=== PATIENT | male | born 1965 | race Two or more races ===

== ENCOUNTER 2025-05-25 07:27 | Inpatient (IN) | payer MEDICARE, MEDICAID, SELFPAY ==
[2025-05-25] VITALS (9 sets, daily range): BP systolic 103–168; BP diastolic 37–78; PULSE 59–95; RESP 11–20; TEMP 37.2–38.5; O2SAT 96–100; BMI 25.1
--- NOTE | ~2025-05-25 | CT_ITS ---
EXAMINATION: CT ABDOMEN PELVIS WITH IV CONTRAST HISTORY: fever, abdominal pain, altered, WBC count 16 COMPARISON: There are no prior studies for available comparison. TECHNIQUE: CT scan of the abdomen and pelvis was performed following administration of 85 mL Omnipaque 350 using standard departmental protocol. Coronal and sagittal reformatted images were generated and reviewed. Oral contrast material was not administered at the request of the referring physician. This CT exam was performed with one or more of the following dose reduction techniques: automated exposure control, adjustment of the mA and/or kV according to patient size, use of iterative reconstruction technique. DLP: 836 mGy-cm FINDINGS: LOWER CHEST: There is minimal subsegmental atelectasis at both lung bases. There is no pleural effusion. CARDIOVASCULATURE: The heart is normal in size. There is no pericardial effusion. LIVER: The liver is normal in size and contour. No liver mass is identified. The hepatic and portal veins are patent. GALLBLADDER / BILE DUCTS: The gallbladder is unremarkable. There is no intra or extrahepatic biliary ductal dilatation. SPLEEN: The spleen is normal in size. No focal splenic lesion is identified. PANCREAS: The pancreas is unremarkable in appearance. ADRENAL GLANDS: Within normal limits. KIDNEYS/RETROPERITONEUM: No renal calculi are identified. There is no hydronephrosis. There are multiple bilateral renal parapelvic cysts. LYMPH NODES: No abdominal or pelvic lymphadenopathy. VASCULATURE: The abdominal aorta is normal in caliber. MESENTERY/PERITONEUM: No free fluid. No masses. There is no free intraperitoneal gas. STOMACH: The stomach is unremarkable. SMALL BOWEL: The small bowel is normal in caliber. COLON: There is diverticulosis of the sigmoid colon, without evidence of diverticulitis. APPENDIX: Normal. URINARY BLADDER/PELVIC ORGANS: The urinary bladder is collapsed, limiting evaluation. The prostate is mildly enlarged. BONES / SOFT TISSUES: There is a chronic appearing severe compression fracture of L3. CT/CT abdomen pelvis w IV con IMPRESSION: Sigmoid diverticulosis without evidence of diverticulitis. No acute inflammatory process is identified. Electronically signed by: Jose Gale MD 05/25/2025 10:04 AM EDT
--- NOTE | ~2025-05-25 | XR_ITS ---
EXAMINATION: XR CHEST 1 VIEW HISTORY: fever COMPARISON: There are no prior studies available for comparison. FINDINGS: A single AP portable view of the chest performed at 8:01 AM is submitted. The lungs are expanded and clear. There is no pleural effusion, pneumothorax, or pulmonary vascular congestion. The heart is normal in size. The bones are intact. XR/XR chest 1V IMPRESSION: Clear lungs. Electronically signed by: Jose Gale MD 05/25/2025 08:28 AM EDT
--- NOTE | ~2025-05-25 | XR_ITS ---
CLINICAL HISTORY: right arm pain Right humerus, 2 views COMPARISON: None provided FINDINGS: No acute fracture. No dislocation. Small bony protuberance along the lateral margin of the distal right humerus, which could be due to osteophyte or osteochondroma. Unremarkable soft tissues. IMPRESSION: No acute findings. This document has been electronically signed by: Benito Melendrez MD on 05/28/2025 19:18:41
--- NOTE | ~2025-05-25 | CT_ITS ---
EXAMINATION: CT HEAD WITHOUT CONTRAST CLINICAL INFORMATION: AMS COMPARISON: None available. TECHNIQUE: Contiguous axial imaging was performed from the skull base to vertex without intravenous administration of contrast. This CT examination was performed using dose optimization techniques as appropriate, variously including the following: *Automated exposure control *Adjustment of mA and/or kV according to patient size (this includes techniques or standardized protocols for targeted exams where dose is matched to indication/reason for exam; i.e. extremities or head) *Use of iterative reconstruction technique DLP: 778 mGy-cm FINDINGS: No acute fracture in the bony calvarium or the skull base. There is residual IV contrast within the intracranial vessels from recent imaging exam. No gross acute intracranial hemorrhage, mass effect, midline shift, hydrocephalus or herniation. Avila-white matter differentiation is normal. Posterior cranial fossa contents demonstrated no gross hemorrhage or mass effect. Normal position of the cerebellar tonsils. Sellar/suprasellar region is normal. Prominence of the extra-axial CSF spaces cerebral sulci and ventricles. Small encephalomalacia, right frontotemporal likely sequela of prior vascular insult. Calcified plaques in the cavernous supracavernous segments both ICAs. No air-fluid levels in the paranasal sinuses. Tympanic cavities and mastoid cells are aerated. CT/CT head/brain wo IV con IMPRESSION: No gross acute intracranial hemorrhage. 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 Global cerebral atrophy. Electronically signed by: Sony Morrison MD 05/25/2025 11:59 AM EDT
--- NOTE | ~2025-05-25 | XR_ITS ---
CLINICAL HISTORY: right arm shoulder pain Right shoulder, 3 views COMPARISON: None provided FINDINGS: No acute fracture. No dislocation. Mild degenerative changes in the right acromioclavicular joint. Unremarkable soft tissues. IMPRESSION: No acute findings. This document has been electronically signed by: Benito Melendrez MD on 05/28/2025 19:19:47
--- NOTE | 2025-05-25 07:54 | ECG_ITS ---
Test Reason : AMS Blood Pressure : */* mmHG Vent. Rate : 78 BPM Atrial Rate : 78 BPM P-R Int : 152 ms QRS Dur : 92 ms QT Int : 358 ms P-R-T Axes : 65 15 45 degrees QTcB Int : 408 ms Normal sinus rhythm Normal ECG No previous ECGs available Referred By: Generic ED Physician Electronically Signed By: NANNETTE ALAN
--- NOTE | 2025-05-25 08:02 | ED.MALEGU ---
HPI - Male Genitourinary General Chief complaint: Urogenital-Male Stated complaint: AMS,WEAKNESS,HX DEMENTIA PER EMS Time Seen by Provider: 05/25/25 07:58 Source: patient, family, EMS, old records reviewed and safety companion Mode of arrival: EMS Limitations: altered mental status and other (daughter does not know his medical history is unclear. ) History of Present Illness ED Provider: MARY LOU HPI Narrative: 59 yo male with PMH of parkinsons, BPH, HTN, HLD, on lasix but unclear why, dementia who just came from [place] 3 weeks ago to live with his daughter. She notes she is not clear of his medical history as it was confusing and he cannot provide information. He has had shaking, tremors, increased confusion, poor PO intake, states it hurts to urinate and he cannot urinate much. He has also been constipated. He really cannot provide much other history. MD Complaint: other Onset (ago): day(s) (1) Duration: constant Severity: moderate Relieving factors: urination Exacerbating factors: none Context: other Associated symptoms: Reports urinary retention, dysuria, fever and other Related Data Allergies Allergy/AdvReac Type Severity Reaction Status Date / Time No Known Allergies Allergy Verified 05/25/25 07:52 [facility] Social History Social History Smoked in Last 30 Days: No Use of substances other than those prescribed or required for medical reasons: No Advance Directives: No Advance Directives Information Provided: Yes Physical Exam Vital Signs: Vital Signs: Last Vital Signs Temp 98.9 F 05/25/25 13:23 Pulse 59 05/25/25 13:23 Resp 14 05/25/25 13:23 BP 105/37 L 05/25/25 13:23 Pulse Ox 97 05/25/25 13:23 O2 Del Method Room Air 05/25/25 13:23 BMI result Body Mass Index 25.1 Appearance: Alert. confused not answering questions. Mild acute distress. Eyes: Pupils equal, round and reactive to light. ENT: Pharynx dry MM Neck: Normal inspection. Neck supple. CVS: Normal heart rate and rhythm. Pulses normal. Respiratory: No respiratory distress. Breath sounds normal. Abdomen: Soft and mild grimace lower abdomen Skin: Skin warm and dry. Normal skin color. Extremities: No lower extremity edema. Neuro: confused, non verbal No motor deficit. No sensory deficit. Course Course Course Narrative: no source at this time. will discuss possible LP plts are above 100 and he is not on blood thinners. I have no other source of infection. He is diffusely rigid on exam from his parkinsons so I cannot assess meningeal signs Reevaluation(s) Reevaluation #1: Rebeka Workman, DO 05/25/25 1050 patient's daughter is aware I do not have a source of infection. I discussed LP but she doesn't know exactly his meds or why he is on verapamil/lasix. I asked if there were more meds at home and she states yes. Some bottles are not labeled. at this time will dose with vanco, steroids, acyclovir and treat as meningitis until she can confirm his meds Reevaluation #2: signed out to Dr. Thakkar - daughter is going home to confirm medications as we are not sure if he is on blood thinners and she now reports she isn't sure of his history and has more meds and papers at home I am giving IV versed to look for brain mass as cause of symptoms. Rebeka Workman, DO 05/25/25 1109 watery stools x 2, stool studies sent off. Reevaluation #3: Bijan: The patient was signed out to me at change of shift. The patient is a 59-year-old male with a history of Parkinson's disease who presents with a about 36 hours of illness characterized primarily by altered mental status. On arrival here he was found to have a fever. He has a white count of 16,000. His CRP is elevated at 12. Urinalysis, CT of the abdomen and pelvis, chest x-ray, and chest CT do not show any explanation for the patient's fever. His head CT was unremarkable. His medications were reviewed. He is not on anticoagulation. The patient had previously received antibiotics for possible meningitis. Also dexamethasone. I explained to the patient's daughter the rationale for a spinal tap and she consented and signed consent. Spinal tap was mildly difficult but fluid was clear. Immediately after the procedure was completed I was called by the lab to say that a stool sample that has been sent earlier was positive for norovirus. Given the patient has metabolic encephalopathy he will be admitted to the hospitalist service. Time: 13:44 Medications Administered Discontinued Medications Generic Name Dose Route Start Last Admin Trade Name Freq PRN Reason Stop Dose Admin Ceftriaxone Sodium 2 gm 05/25/25 08:00 05/25/25 08:24 Ceftriaxone Sodium 2 Gm Vial IVPUSH 05/25/25 08:01 2 gm ONCE ONE Administration Dexamethasone Sodium Phosphate 10 mg 05/25/25 10:51 05/25/25 11:05 Dexamethasone Sod Phosphate 10 Mg/Ml Vial IVPUSH 05/25/25 10:52 10 mg ONCE ONE Administration Lactated Ringer's 1,000 mls @ 999 mls/hr 05/25/25 08:00 05/25/25 10:20 Lr IV 05/25/25 09:00 Infused .Q1H1M ONE Infusion Acetaminophen 1,000 mg in 100 mls @ 400 mls/hr 05/25/25 08:00 05/25/25 08:31 Ofirmev IV 05/25/25 08:14 Infused ONCE ONE Infusion Vancomycin HCl 2,000 mg in 500 mls @ 250 mls/hr 05/25/25 10:51 05/25/25 13:23 Vancomycin/Ns IV 05/25/25 12:50 Infused ONCE ONE Infusion Acyclovir Sodium 732 mg/ 264.64 mls @ 264.64 mls/hr 05/25/25 10:51 05/25/25 13:29 Sodium Chloride IV 05/25/25 11:50 264.64 mls/hr ONCE ONE Administration Iohexol 100 ml 05/25/25 09:48 05/25/25 09:48 Iohexol 350 Mg/Ml 100 Ml Infus..Btl IV 05/25/25 09:49 85 ml ONCE ONE Administration Lidocaine HCl 5 ml 05/25/25 10:36 05/25/25 13:29 Lidocaine Hcl 1 % Mpf 5 Ml Vial SUBCUT 05/25/25 10:37 5 ml ONCE ONE Administration Midazolam HCl 2 mg 05/25/25 10:49 05/25/25 11:05 Midazolam Hcl 2 Mg/2 Ml Vial IVPUSH 05/25/25 10:50 2 mg ONCE ONE Administration Medical Decision Making Medical Decision Making MDM Narrative: 59 yo male with PMH of parkinsons, BPH, HTN, HLD, on lasix but unclear why, dementia who comes in febrile, shaky, confused more so from baseline, he cannot provide much history he isn't talking. At this time will obtain labs, UA, CXR, viral panel and given c/o constipation I am going to obtain CT scan of abdomen. He will get IV tylenol, IVF and empiric antibiotics. He has a wide differential including viral, UTI, diverticulitis, pyelo, pneumonia, mass Differential Diagnosis Differential Diagnoses: The differential diagnosis associated with the presentation includes viral, UTI, diverticulitis, pyelo, pneumonia, mass Admission/Observation Consideration of admission/observation: Escalation of care including admission/observation considered given encephalopathy from infection will admit Consult Healthcare Provider Management of the patient was discussed with: Hospitalist Lab Data MDM Lab Attestation statement: I reviewed the patient's lab results. 05/25/25 08:22 05/25/25 08:22 Labs: Lab Results 05/25/25 05/25/25 05/25/25 Range/Units 08:22 08:49 10:24 WBC 16.0 H (4.8-10.8) X10*3/uL RBC 4.46 L (4.60-5.80) X10*6/uL Hgb 13.8 L (14.0-18.0) g/dl Hct 42.2 (42.0-52.0) % MCV 94.6 (80.0-98.0) fL MCH 30.9 (27.0-33.0) pg MCHC 32.7 (31.0-36.0) g/dl RDW 13.2 (11.0-16.0) % Plt Count 107 L (160-400) X10*3/uL MPV 12.0 (9.4-12.4) fL Immature Gran % (Auto) 0.6 H (0.0-0.4) % Neut % (Auto) 80.7 H (45-73) % Lymph % (Auto) 7.9 L (20-40) % [place] % (Auto) 10.2 (2-11) % Eos % (Auto) 0.3 (0-4) % Baso % (Auto) 0.3 (0-2) % Lymph # (Auto) 1.3 (1.2-4.9) X10*3/uL [place] # (Auto) 1.6 H (0.1-1.2) X10*3/uL Eos # (Auto) 0.0 (0.0-0.4) X10*3/uL Baso # (Auto) 0.0 (0.0-0.2) X10*3/uL Abs Immat Gran (auto) 0.09 H (0.00-0.03) X10*3/uL Absolute Neuts (auto) 12.9 H (2.0-8.3) x10*3/uL Absolute Nucleated RBC 0.000 (0.0-0.012) X10*3/uL Nucleated RBC % (auto) 0.0 (0.0-0.2) /100WBC Smear Tech's Comments VERIFIED Sodium 141 (135-145) mmol/L Potassium 3.4 (3.3-5.1) mmol/L Chloride 106 (96-108) mmol/L Carbon Dioxide 27 (22-29) mmol/L Anion Gap 11 L (12-20) BUN 15 (9-16) mg/dL Creatinine 0.97 (0.5-1.4) mg/dL Estim Creat Clear Calc 80.9 Estimated GFR > 60 Random Glucose 97 (60-115) mg/dL Lactic Acid 1.1 (0.5-2.0) mmol/L Calcium 9.6 (8.4-10.2) mg/dL Magnesium 2.0 (1.6-2.6) mg/dL Total Bilirubin 0.6 (0.0-1.0) mg/dL Direct Bilirubin 0.2 (0.0-0.5) mg/dL AST 25 (5-37) U/L ALT 29 (0-40) U/L Alkaline Phosphatase 70 (39-117) U/L Troponin I High Sens < 2.7 (<3.5-35.0) ng/L C-Reactive Protein 15.29 H (< or = 0.50) mg/dL Total Protein 8.2 H (6.5-8.0) g/dL Albumin 4.7 (3.5-5.0) g/dL Lipase 29 (8-78) U/L Urine Color Yellow Urine Appearance Clear Urine pH 5.5 (5.0-9.0) Ur Specific [place] >= 1.030 H (1.005-1.025) Urine Protein Negative (Neg-Trace) mg/dL Urine Glucose (UA) Negative (Negative) mg/dL Urine Ketones Trace (Negative) mg/dL Urine Blood Trace H (Negative) Urine Nitrite Negative (Negative) Ur Leukocyte Esterase Negative (Negative) Urine RBC 0-2 (0-2) /HPF Urine WBC 0-5 (0-5) /HPF Ur Squamous Epith Cells 3-5 (0-2) /HPF Urine Bacteria None Seen (None Seen) Hyaline Casts 0-2 (0-2) /LPF Stl C. cayetanensis PCR (Not Detect.) Stool Rotavirus A PCR (Not Detect.) Stl Adenov F 40/41 PCR (Not Detect.) Stool Astrovirus (PCR) (Not Detect.) Stool Campylobacter PCR (Not Detect.) Stool Cryptosporidium PCR (Not Detect.) Stl Sh Tox Pr E STEC PCR (Not Detect.) Stool E coli O157 PCR (Not Detect.) Stl Enterotoxigenic E PCR (Not Detect.) Stool EPEC (PCR) (Not Detect.) Stool EAEC (PCR) (Not Detect.) Stl E. histolytica PCR (Not Detect.) Stool Giardia Lamblia PCR (Not Detect.) Stl P. shigelloides PCR (Not Detect.) Stool Salmonella PCR (Not Detect.) Stool Sapovirus (PCR) (Not Detect.) Stl Shigella/EIEC PCR (Not Detect.) St Y.enterocolitica PCR (Not Detect.) Stool Vibrio (PCR) (Not Detect.) Stl Vibrio cholerae PCR (Not Detect.) Stl Norovirus GI/GII PCR (Not Detect.) Respiratory Panel Shepard See Note Adenovirus (Rapid PCR) Not Detected (Not Detect.) B.pert (TEM-PCR) Not Detected (Not Detect.) B.parapertussis DNA PCR Not Detected (Not Detect.) C. pneumoniae DNA (PCR) Not Detected (Not Detect.) C. difficile Tox B Gene (Negative) Coronavirus OC43 (PCR) Not Detected (Not Detect.) Coronavirus HKU1 (PCR) Not Detected (Not Detect.) Coronavirus 229E (PCR) Not Detected (Not Detect.) Coronavirus NL63 (PCR) Not Detected (Not Detect.) Human Metapneumovir PCR Not Detected (Not Detect.) Influenza A (RT-PCR) Not Detected (Not Detect.) Influenza A (H1) PCR Not Detected (Not Detect.) Influ A (H1/09) PCR Not Detected (Not Detect.) Influenza A (H3) PCR Not Detected (Not Detect.) Influenza Type A (PCR) NEGATIVE (Negative) Influenza B (RT-PCR) Not Detected (Not Detect.) Influenza Type B (PCR) NEGATIVE (Negative) M. pneumoniae (PCR) Not Detected (Not Detect.) Parainfluenza 1 (PCR) Not Detected (Not Detect.) Parainfluenza 2 (PCR) Not Detected (Not Detect.) Parainfluenza 3 (PCR) Not Detected (Not Detect.) Parainfluenza 4 (PCR) Not Detected (Not Detect.) RSV (PCR) Not Detected (Not Detect.) RSV RNA Qual (PCR) NEGATIVE (Negative) Entero/Rhino (PCR) Not Detected (Not Detect.) SARS-CoV-2 RNA (RT-PCR) NEGATIVE Not Detected (Negative) 05/25/25 Range/Units 11:16 WBC (4.8-10.8) X10*3/uL RBC (4.60-5.80) X10*6/uL Hgb (14.0-18.0) g/dl Hct (42.0-52.0) % MCV (80.0-98.0) fL MCH (27.0-33.0) pg MCHC (31.0-36.0) g/dl RDW (11.0-16.0) % Plt Count (160-400) X10*3/uL MPV (9.4-12.4) fL Immature Gran % (Auto) (0.0-0.4) % Neut % (Auto) (45-73) % Lymph % (Auto) (20-40) % [place] % (Auto) (2-11) % Eos % (Auto) (0-4) % Baso % (Auto) (0-2) % Lymph # (Auto) (1.2-4.9) X10*3/uL [place] # (Auto) (0.1-1.2) X10*3/uL Eos # (Auto) (0.0-0.4) X10*3/uL Baso # (Auto) (0.0-0.2) X10*3/uL Abs Immat Gran (auto) (0.00-0.03) X10*3/uL Absolute Neuts (auto) (2.0-8.3) x10*3/uL Absolute Nucleated RBC (0.0-0.012) X10*3/uL Nucleated RBC % (auto) (0.0-0.2) /100WBC Smear Tech's Comments Sodium (135-145) mmol/L Potassium (3.3-5.1) mmol/L Chloride (96-108) mmol/L Carbon Dioxide (22-29) mmol/L Anion Gap (12-20) BUN (9-16) mg/dL Creatinine (0.5-1.4) mg/dL Estim Creat Clear Calc Estimated GFR Random Glucose (60-115) mg/dL Lactic Acid (0.5-2.0) mmol/L Calcium (8.4-10.2) mg/dL Magnesium (1.6-2.6) mg/dL Total Bilirubin (0.0-1.0) mg/dL Direct Bilirubin (0.0-0.5) mg/dL AST (5-37) U/L ALT (0-40) U/L Alkaline Phosphatase (39-117) U/L Troponin I High Sens (<3.5-35.0) ng/L C-Reactive Protein (< or = 0.50) mg/dL Total Protein (6.5-8.0) g/dL Albumin (3.5-5.0) g/dL Lipase (8-78) U/L Urine Color Urine Appearance Urine pH (5.0-9.0) Ur Specific [place] (1.005-1.025) Urine Protein (Neg-Trace) mg/dL Urine Glucose (UA) (Negative) mg/dL Urine Ketones (Negative) mg/dL Urine Blood (Negative) Urine Nitrite (Negative) Ur Leukocyte Esterase (Negative) Urine RBC (0-2) /HPF Urine WBC (0-5) /HPF Ur Squamous Epith Cells (0-2) /HPF Urine Bacteria (None Seen) Hyaline Casts (0-2) /LPF Stl C. cayetanensis PCR Not Detected (Not Detect.) Stool Rotavirus A PCR Not Detected (Not Detect.) Stl Adenov F 40/41 PCR Not Detected (Not Detect.) Stool Astrovirus (PCR) Not Detected (Not Detect.) Stool Campylobacter PCR Not Detected (Not Detect.) Stool Cryptosporidium PCR Not Detected (Not Detect.) Stl Sh Tox Pr E STEC PCR Not Detected (Not Detect.) Stool E coli O157 PCR Not applicable (Not Detect.) Stl Enterotoxigenic E PCR Not Detected (Not Detect.) Stool EPEC (PCR) Not Detected (Not Detect.) Stool EAEC (PCR) Not Detected (Not Detect.) Stl E. histolytica PCR Not Detected (Not Detect.) Stool Giardia Lamblia PCR Not Detected (Not Detect.) Stl P. shigelloides PCR Not Detected (Not Detect.) Stool Salmonella PCR Not Detected (Not Detect.) Stool Sapovirus (PCR) Not Detected (Not Detect.) Stl Shigella/EIEC PCR Not Detected (Not Detect.) St Y.enterocolitica PCR Not Detected (Not Detect.) Stool Vibrio (PCR) Not Detected (Not Detect.) Stl Vibrio cholerae PCR Not Detected (Not Detect.) Stl Norovirus GI/GII PCR Detected A (Not Detect.) Respiratory Panel Shepard Adenovirus (Rapid PCR) (Not Detect.) B.pert (TEM-PCR) (Not Detect.) B.parapertussis DNA PCR (Not Detect.) C. pneumoniae DNA (PCR) (Not Detect.) C. difficile Tox B Gene NEGATIVE (Negative) Coronavirus OC43 (PCR) (Not Detect.) Coronavirus HKU1 (PCR) (Not Detect.) Coronavirus 229E (PCR) (Not Detect.) Coronavirus NL63 (PCR) (Not Detect.) Human Metapneumovir PCR (Not Detect.) Influenza A (RT-PCR) (Not Detect.) Influenza A (H1) PCR (Not Detect.) Influ A (H1/09) PCR (Not Detect.) Influenza A (H3) PCR (Not Detect.) Influenza Type A (PCR) (Negative) Influenza B (RT-PCR) (Not Detect.) Influenza Type B (PCR) (Negative) M. pneumoniae (PCR) (Not Detect.) Parainfluenza 1 (PCR) (Not Detect.) Parainfluenza 2 (PCR) (Not Detect.) Parainfluenza 3 (PCR) (Not Detect.) Parainfluenza 4 (PCR) (Not Detect.) RSV (PCR) (Not Detect.) RSV RNA Qual (PCR) (Negative) Entero/Rhino (PCR) (Not Detect.) SARS-CoV-2 RNA (RT-PCR) (Negative) Independent Interpretation I performed an independent interpretation of an: EKG, Plain X-Ray (no pneumonia) and CT Scan (no source of infection) Interpretation: Rate: 78 Rhythm: NSR [place]: normal Normal P waves. Normal DEIDRE. Normal QRS complex. ST T wave : normal no DANYELL qTC: 408 prior studies: no prior but no acute ischemia The study has been interpreted contemporaneously by me. . Radiology Impression Discussion of test interpretation with radiology: I have reviewed the radiologist's reading. Independent Historian Clinical information obtained from an independent historian. History obtained from or confirmed by: EMS and Other (daughter) Procedures Lumbar Puncture Time Out Performed: Yes Patient Position: right lateral decubitus Skin Prep: Povidone-Iodine 1% Local Anesthetic: lidocaine 1% Amount of anesthesia used (mL): 6 Spinal Needle Gauge: 20G Interspace Used: L3-L4 Fluid Initially Obtained: clear Complications: none Additional Comments: Consent was obtained from the patient's daughter as the patient has an abnormal mental status. Discharge Plan Discharge Print Language: Luxembourger
[2025-05-25] MEDS: Lactated Ringers 1,000 ML 999 ML IV (08:10)
--- NOTE | 2025-05-25 08:24 | PC.NURSE ---
abx started after 1st set of BC, 24 minutes after order. pt difficult draw, flailing limbs
[2025-05-25 08:40] LABS: Hematocrit 42.2 % (42.0-52.0); Hemoglobin 13.8 g/dl (14.0-18.0); Imm Gran Abs Auto 0.09 X10*3/uL (0.00-0.03); Imm Gran Pct Auto 0.6 % (0.0-0.4); Lymphocytes Absolute Auto 1.3 X10*3/uL (1.2-4.9); MANUAL DIFF FLAG SCAN; Mean Corpuscular HGB Conc 32.7 g/dl (31.0-36.0); Mean Corpuscular Hemoglobin 30.9 pg (27.0-33.0); Mean Corpuscular Volume 94.6 fL (80.0-98.0); NRBC Abs Auto 0.000 X10*3/uL (0.0-0.012); NRBC Pct Auto 0.0 /100WBC (0.0-0.2); Red Blood Count 4.46 X10*6/uL (4.60-5.80); SCAN SMEAR FLAG 1; White Blood Count 16.0 X10*3/uL (4.8-10.8)
--- OUTSIDE RECORDS SUMMARY | 2025-05-25 08:49 | XMS_ITS | Clinical Summary ---
Author Organization [employer] Address [address] [place] [address] Care Team Providers Care Web Page Developer Name Role Phone Unavailable Primary Care Provider Unavailabl e Social History Tobacco Use Types Packs/Day Years Used Date Smoking Tobacco: Never Assessed Sex and Gender Information Value Date Recorded Sex Assigned at Male 05/02/2025 8:54 AM EDT Legal Sex Male 8:54 AM EDT Gender Identity Male 05/02/2025 8:54 AM EDT Sexual Orientation Straight 05/02/2025 8: 54 AM EDT Plan of Treatment Upcoming Encounters Date Type Department Care Team (Late st Contact Info) Description 2025 10:45 AM EST Office Visit [facility] [address] [place] [id number] Name, MD Doc [address] [place] [address] Health Maintenance Due Date Last Done Comments CT Colonography 1964 Colonoscopy 1964 Colorectal Cancer Screening 1964 Depression Screening 1964 FIT DNA/Cologuard 1964 FIT 1964 FOBT 1964 HIV Screening 1964 Lipid Panel 1964 SDOH Screening 1964 Sigmoidoscopy 1964 Disability Screening 1964 Alcohol/Substance Use Screening 1976 Tobacco Screening 1976 Hepatitis C Screening 1982 DTaP/Tdap/Td Vaccines (1 - Tdap) 1983 Pneumococcal Vaccine: 50+ Ye ars (1 of 1 - PCV) 2014 Zoster Vaccines (1 of 2) 2014 COVID-19 Vaccine ( - 2023-2 5 season) 2025 Influenza Vaccine (#1) 2025 RSV Patients and Pa tients Aged 60 years or older (1 - 1-dose 75+ series) 2039 HIB Vaccines Aged Out No longer eligi ble based on patient's age to complete this topic HPV Vaccines Aged Out No longer eligi ble based on patient's age to complete this topic Hepatitis A Vaccines Aged Out No long er eligible based on patient's age to complete this topic Hepatitis B Vaccines Aged Out No long er eligible based on patient's age to complete this topic IPV Vaccines Aged Out No longer eligi ble based on patient's age to complete this topic Meningococcal B Vaccine Aged Out No l onger eligible based on patient's age to complete this topic Meningococcal Vaccine Aged Out No martha brendan eligible based on patient's age to complete this topic RSV under 20 months Aged Out No longe r eligible based on patient's age to complete this topic Rotavirus Vaccines Aged Out No longer eligible based on patient's age to complete this topic [place] [id number] [facility] STANDARD GENERIC MEDICARE ADVANTAGE on file
--- NOTE | 2025-05-25 08:50 | PC.NURSE ---
pt comes into ED with daughter via EMS. Hx of Parkinson and dementia reported by daughter. Pt does not follow commands and is flailing limbs. unable to sit still febrile 101.3. Vitals otherwise WNL. Sepsis protocol initiated per provider. Labs and EKG done, BCs drawn. abx infused after first set bc second set would be late. bladder scan about 15ml urine in bladder. Pt urinated spontaneously right before straight cath. sample sent to lab. NSR on tele
[2025-05-25 08:55] LABS: Alanine Aminotransferase 29 U/L (0-40); Albumin Level 4.7 g/dL (3.5-5.0); Alkaline Phosphatase 70 U/L (39-117); Anion Gap 11 (12-20); Aspartate Amino Transferase 25 U/L (5-37); Blood Urea Nitrogen 15 mg/dL (9-16); Calcium 9.6 mg/dL (8.4-10.2); Carbon Dioxide 27 mmol/L (22-29); Chloride 106 mmol/L (96-108); Creatinine Clr Calc Pharmacy 80.9; Estimated Glomerular Filt Rate > 60; Lipase 29 U/L (8-78); Magnesium 2.0 mg/dL (1.6-2.6); Potassium 3.4 mmol/L (3.3-5.1); Sodium 141 mmol/L (135-145); Total Protein 8.2 g/dL (6.5-8.0)
[2025-05-25 08:56] LABS: Appearance Urine Clear; Glucose Urine UA Negative (Negative); PH 5.5 (5.0-9.0); Specific Gravity - Urine >= 1.030 (1.005-1.025); UMIC TRIGGER UACC YES
[2025-05-25 09:06] LABS: Troponin-I High Sensitivity < 2.7 ng/L (<3.5-35.0)
[2025-05-25 09:33] LABS: Resp Syncy Virus RNA Qual PCR NEGATIVE (Negative); SARS COV2 PCR INHOUSE NEGATIVE (Negative)
[2025-05-25 09:39] LABS: Platelet Count 107 X10*3/uL (160-400)
[2025-05-25] MEDS: iohexoL 350 MG/ML 100 ML INFUS..BTL IV (09:48)
[2025-05-25] MEDS: vancomycin/NS 2,000 MG/500 ML PLAST..BAG 250 MG IV (11:05)
[2025-05-25 12:20] LABS: CDiff Gene PCR NEGATIVE (Negative)
[2025-05-25 12:56] LABS: E. coli EAEC Not Detected (Not Detect.); E. coli EPEC Not Detected (Not Detect.); E. coli ETEC Not Detected (Not Detect.); E. coli STEC Not Detected (Not Detect.); Shigella sp./EIEC Not Detected (Not Detect.)
[2025-05-25 13:19] LABS: Chlamydia pneumoniae PCR Not Detected (Not Detect.); Coronavirus 229E PCR Not Detected (Not Detect.); Coronavirus HKU1 PCR Not Detected (Not Detect.); Coronavirus NL63 PCR Not Detected (Not Detect.); Coronavirus OC43 PCR Not Detected (Not Detect.); RSV PCR Not Detected (Not Detect.); Rhino/Enterovirus PCR Not Detected (Not Detect.)
[2025-05-25 13:23] LABS: Influenza A H1 PCR Not Detected (Not Detect.); Influenza A H1-2009 PCR Not Detected (Not Detect.); Influenza A H3 PCR Not Detected (Not Detect.); SARS-CoV-2 PCR Not Detected (Not Detect.)
[2025-05-25] MEDS: ACYCLOVIR SODIUM IV (13:29)
[2025-05-25] MEDS: SODIUM CHLORIDE 0.9% IV (13:29)
[2025-05-25] MEDS: Lidocaine HCl 1 % MPF 5 ML VIAL SUBCUT (13:29)
--- NOTE | 2025-05-25 14:05 | PM.IMHP ---
History of Present Illness Date of Service: 05/25/25 Attending physician on admission: Valery Luna Chief Complaint: AMS This is a 59-year-old male who was brought to the emergency department by his daughter due to confusion. History was obtained from his daughter at the bedside as the patient is unable to provide any significant history. She moved him here from [place] 3 weeks ago because he had no one to take care of him. Patient has a history of Parkinson's disease, stroke and memory impairment. He is confused at baseline but over the past 2-3 days he has had increasing confusion, weakness, decreased oral intake and change in behavior. Today in the emergency department he was febrile with a temperature of 101.3 degrees. Initial workup including brain CT, abdominal pelvic CT, chest x-ray, UA and full respiratory pathogen panel were all negative. Patient underwent lumbar puncture and was empirically treated for possible meningitis. He then had multiple episodes of loose stools and a GI panel was sent returning positive for norovirus. Patient's daughter denies any recent reports of abdominal pain, nausea, vomiting. No reported sick contacts. Lab work significant for leukocytosis of 16,000 and was otherwise unremarkable. Patient received 2 mg of IV Versed prior to lumbar puncture and on physical exam patient is difficult to arouse, unable to provide any history, not answering any questions. Review of Systems Review of Systems: Unable to obtain due to altered mental status [facility] Medical History (Updated 05/25/25 @ 14:10 by SOPHY Taylor) BPH (benign prostatic hyperplasia) HTN (hypertension) Parkinson disease Stroke Social History (Updated 05/25/25 @ 14:10 by SOPHY Taylor) Alcohol intake: never Patient Tobacco Use Status: Never used Tobacco Smoked in Last 30 Days: No Use of substances other than those prescribed or required for medical reasons: No Advance Directives: No Advance Directives Information Provided: Yes Meds Allergies Allergy/AdvReac Type Severity Reaction Status Date / Time No Known Allergies Allergy Verified 05/25/25 07:52 Active Medications: Current Medications Acetaminophen (Acetaminophen 325 Mg Tablet) 650 mg PO Q6H PRN PRN Reason: Pain, Mild 1-3,fever,headache Calcium Carbonate (Calcium Carbonate 750 Mg Tab.Chew) 750 mg PO Q4H PRN PRN Reason: Heartburn Melatonin (Melatonin 3 Mg Tablet) 6 mg PO BEDTIME PRN PRN Reason: Insomnia Sodium Chloride (0.9 % Sodium Chloride Flush 3 Ml Syringe) 3 ml IVFLUSH QSHIFT [facility] Home Medications ?Medication ?Instructions ?Recorded ?Confirmed ?Last Taken ?Type atorvastatin 20 mg tablet 20 mg PO DAILY 05/25/25 05/25/25 Unknown History baclofen 20 mg tablet 20 mg PO BID 05/25/25 05/25/25 Unknown History divalproex 250 mg tablet,delayed 250 mg PO BID 05/25/25 05/25/25 Unknown History release donepezil 10 mg tablet 10 mg PO DAILY 05/25/25 05/25/25 Unknown History famotidine 20 mg tablet 20 mg PO DAILY 05/25/25 05/25/25 Unknown History fluticasone propionate 50 1 - 2 spray intranasal DAILY PRN 05/25/25 05/25/25 Unknown History mcg/actuation nasal Allergy Symptoms spray,suspension furosemide 20 mg tablet 20 mg PO BID 05/25/25 05/25/25 Unknown History lisinopril 10 mg tablet 10 mg PO DAILY 05/25/25 05/25/25 Unknown History memantine 10 mg tablet 10 mg PO DAILY 05/25/25 05/25/25 Unknown History sertraline 100 mg tablet 100 mg PO DAILY 05/25/25 05/25/25 Unknown History tamsulosin 0.4 mg capsule 0.4 mg PO DAILY 05/25/25 05/25/25 Unknown History verapamil 80 mg tablet 80 mg PO DAILY 05/25/25 05/25/25 Unknown History Physical Exam Vital Signs and Narrative: Vital Signs: Last Vital Signs Temp 98.9 F 05/25/25 13:23 Pulse 59 05/25/25 13:23 Resp 14 05/25/25 13:23 BP 105/37 L 05/25/25 13:23 Pulse Ox 97 05/25/25 13:23 O2 Del Method Room Air 05/25/25 13:23 BMI result Body Mass Index 25.1 Const: Other: not responding to verbal stimuli; withdraws and moans with painful stimuli Nutritional Appearance: average body habitus Resp: Effort & Inspection: normal respiratory effort, no respiratory distress and no use of accessory muscles Cardio: Rate: regular rate GI: Inspection: No distended Palpation (GI): Soft to palpation Neuro: Other: difficult to assess, withdraws to pain, moves upper extremities; face appears symmetrical otherwise limited assessment Extrem: General: No pedal edema Results Labs 05/25/25 08:22 05/25/25 08:22 Labs: Laboratory Results - last 24 hr 05/25/25 05/25/25 05/25/25 08:22 08:49 10:24 MCV 94.6 MCH 30.9 MCHC 32.7 RDW 13.2 Plt Count 107 L MPV 12.0 Immature Gran % (Auto) 0.6 H Neut % (Auto) 80.7 H Lymph % (Auto) 7.9 L [place] % (Auto) 10.2 Eos % (Auto) 0.3 Baso % (Auto) 0.3 Lymph # (Auto) 1.3 [place] # (Auto) 1.6 H Eos # (Auto) 0.0 Baso # (Auto) 0.0 Abs Immat Gran (auto) 0.09 H Absolute Neuts (auto) 12.9 H Absolute Nucleated RBC 0.000 Nucleated RBC % (auto) 0.0 Smear Tech's Comments VERIFIED Anion Gap 11 L Estim Creat Clear Calc 80.9 Estimated GFR > 60 Random Glucose 97 Lactic Acid 1.1 Calcium 9.6 Magnesium 2.0 Total Bilirubin 0.6 Direct Bilirubin 0.2 AST 25 ALT 29 Alkaline Phosphatase 70 Troponin I High Sens < 2.7 C-Reactive Protein 15.29 H Total Protein 8.2 H Albumin 4.7 Lipase 29 Urine Color Yellow Urine Appearance Clear Urine pH 5.5 Ur Specific [place] >= 1.030 H Urine Protein Negative Urine Glucose (UA) Negative Urine Ketones Trace Urine Blood Trace H Urine Nitrite Negative Ur Leukocyte Esterase Negative Urine RBC 0-2 Urine WBC 0-5 Ur Squamous Epith Cells 3-5 Urine Bacteria None Seen Hyaline Casts 0-2 CSF Tube Number CSF Appearance (b) CSF Glucose CSF Total Protein Stl C. cayetanensis PCR Stool Rotavirus A PCR Stl Adenov F 40/41 PCR Stool Astrovirus (PCR) Stool Campylobacter PCR Stool Cryptosporidium PCR Stl Sh Tox Pr E STEC PCR Stool E coli O157 PCR Stl Enterotoxigenic E PCR Stool EPEC (PCR) Stool EAEC (PCR) Stl E. histolytica PCR Stool Giardia Lamblia PCR Stl P. shigelloides PCR Stool Salmonella PCR Stool Sapovirus (PCR) Stl Shigella/EIEC PCR St Y.enterocolitica PCR Stool Vibrio (PCR) Stl Vibrio cholerae PCR Stl Norovirus GI/GII PCR Respiratory Panel Shepard See Note Adenovirus (Rapid PCR) Not Detected B.pert (TEM-PCR) Not Detected B.parapertussis DNA PCR Not Detected C. pneumoniae DNA (PCR) Not Detected C. difficile Tox B Gene Coronavirus OC43 (PCR) Not Detected Coronavirus HKU1 (PCR) Not Detected Coronavirus 229E (PCR) Not Detected Coronavirus NL63 (PCR) Not Detected Human Metapneumovir PCR Not Detected Influenza A (RT-PCR) Not Detected Influenza A (H1) PCR Not Detected Influ A (H1/09) PCR Not Detected Influenza A (H3) PCR Not Detected Influenza Type A (PCR) NEGATIVE Influenza B (RT-PCR) Not Detected Influenza Type B (PCR) NEGATIVE M. pneumoniae (PCR) Not Detected Parainfluenza 1 (PCR) Not Detected Parainfluenza 2 (PCR) Not Detected Parainfluenza 3 (PCR) Not Detected Parainfluenza 4 (PCR) Not Detected RSV (PCR) Not Detected RSV RNA Qual (PCR) NEGATIVE Entero/Rhino (PCR) Not Detected SARS-CoV-2 RNA (RT-PCR) NEGATIVE Not Detected 05/25/25 05/25/25 11:16 13:28 MCV MCH MCHC RDW Plt Count MPV Immature Gran % (Auto) Neut % (Auto) Lymph % (Auto) [place] % (Auto) Eos % (Auto) Baso % (Auto) Lymph # (Auto) [place] # (Auto) Eos # (Auto) Baso # (Auto) Abs Immat Gran (auto) Absolute Neuts (auto) Absolute Nucleated RBC Nucleated RBC % (auto) Smear Tech's Comments Anion Gap Estim Creat Clear Calc Estimated GFR Random Glucose Lactic Acid Calcium Magnesium Total Bilirubin Direct Bilirubin AST ALT Alkaline Phosphatase Troponin I High Sens C-Reactive Protein Total Protein Albumin Lipase Urine Color Urine Appearance Urine pH Ur Specific [place] Urine Protein Urine Glucose (UA) Urine Ketones Urine Blood Urine Nitrite Ur Leukocyte Esterase Urine RBC Urine WBC Ur Squamous Epith Cells Urine Bacteria Hyaline Casts CSF Tube Number 1 CSF Appearance (b) Clear, Colorless CSF Glucose 60 CSF Total Protein 56.6 H Stl C. cayetanensis PCR Not Detected Stool Rotavirus A PCR Not Detected Stl Adenov F 40/41 PCR Not Detected Stool Astrovirus (PCR) Not Detected Stool Campylobacter PCR Not Detected Stool Cryptosporidium PCR Not Detected Stl Sh Tox Pr E STEC PCR Not Detected Stool E coli O157 PCR Not applicable Stl Enterotoxigenic E PCR Not Detected Stool EPEC (PCR) Not Detected Stool EAEC (PCR) Not Detected Stl E. histolytica PCR Not Detected Stool Giardia Lamblia PCR Not Detected Stl P. shigelloides PCR Not Detected Stool Salmonella PCR Not Detected Stool Sapovirus (PCR) Not Detected Stl Shigella/EIEC PCR Not Detected St Y.enterocolitica PCR Not Detected Stool Vibrio (PCR) Not Detected Stl Vibrio cholerae PCR Not Detected Stl Norovirus GI/GII PCR Detected A Respiratory Panel Shepard Adenovirus (Rapid PCR) B.pert (TEM-PCR) B.parapertussis DNA PCR C. pneumoniae DNA (PCR) C. difficile Tox B Gene NEGATIVE Coronavirus OC43 (PCR) Coronavirus HKU1 (PCR) Coronavirus 229E (PCR) Coronavirus NL63 (PCR) Human Metapneumovir PCR Influenza A (RT-PCR) Influenza A (H1) PCR Influ A (H1/09) PCR Influenza A (H3) PCR Influenza Type A (PCR) Influenza B (RT-PCR) Influenza Type B (PCR) M. pneumoniae (PCR) Parainfluenza 1 (PCR) Parainfluenza 2 (PCR) Parainfluenza 3 (PCR) Parainfluenza 4 (PCR) RSV (PCR) RSV RNA Qual (PCR) Entero/Rhino (PCR) SARS-CoV-2 RNA (RT-PCR) Imaging Radiologist's Impressions: Impressions Chest X-Ray 05/25/25 08:01 IMPRESSION: Clear lungs. Electronically signed by: Jose Gale MD 05/25/2025 08:28 AM EDT RP Abdomen/Pelvis CT 05/25/25 09:25 IMPRESSION: Sigmoid diverticulosis without evidence of diverticulitis. No acute inflammatory process is identified. Electronically signed by: Jose Gale MD 05/25/2025 10:04 AM EDT RP Head CT 05/25/25 11:12 IMPRESSION: No gross acute intracranial hemorrhage. 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 Global cerebral atrophy. Electronically signed by: Sony Morrison MD 05/25/2025 11:59 AM EDT RP Assessment and Plan (1) Norovirus: Status: Acute (2) Acute encephalopathy: Status: Acute Plan This is a 59-year-old male with history of Parkinson's disease, history of stroke, BPH, hyperlipidemia, hypertension, mood disorder, who moved to the [facility] from [place] 3 weeks ago and presented to the emergency department due to 2-3 days of increased confusion found to have fever and tested positive for norovirus Acute toxic metabolic encephalopathy On a background of Parkinson's disease and probable vascular UA, CXR, RPP, AP CT and brain CT negative for acute infection likley due to norovirus rule out meningitis/encephalitis-continue empiric therapy while results of LP are pending neuro checks NPO due to lethargy, bedside swallow when more awake to assess need for formal speech evaluation Norovirus Supportive care Gentle IV fluid rehydration (on lasix at baseline, unclear EF) Thrombocytopenia No baseline for comparison Trend CBC HTN bp borderline hold baseline meds lisinopril, lasix, verapamil mood continue baseline meds when able to safely take po h/o CVA continue statin when able to take po Parkinson's disease/dementia does not appear to be on sinemet on baclofen, donepezil and memantine - resume when able to take po DVT prophylaxis-mechanical devices Code status-full code Patient will likely require 2 midnight stay in the hospital for management of acute encephalopathy, norovirus and possible meningitis requiring close neurological monitoring Quality Stroke Does the patient have a stroke diagnosis?: No VTE Prior VTE?: No VTE Risk Level:: Medical - moderate - high VTE Device Contraindication: N/A - Device Ordered VTE Drug Contraindication: Treatment Not Indicated
[2025-05-25 14:31] LABS: Lymphocytes CSF 100 %; Red Blood Cell CSF 0 MM*3; White Blood Cell CSF 1 MM*3
--- NOTE | 2025-05-25 14:52 | PHA.MEDREC ---
Pharmacy Consult ? Medication Reconciliation Pharmacy has completed the medication reconciliation. Spoke with pt and she confirmed her fathers has only been here for about 2 weeks and gave nursing a list of medications from his Dr office; daughter states she does not know anything about Gabapentin or Megestrol as listed and pt daughter has Rx bottles on hand of Divalproex 250mg BID, Furosemide 20mg BID, Verapramil 80mg QD and Famotidine 20mg QD that were not listed on the providers med list; pt daughter confirmed pt taking Atorvastatin 20mg; on list it has 40mg and Lisinopril 10mg; on list it has 20mg.
--- NOTE | 2025-05-25 15:03 | PHA.MEDREC ---
Addendum entered by Pj Bradshaw RPh 05/25/25 15:20: MED REC REVIEWED BY [facility] Original Note: Pharmacy Consult ? Medication Reconciliation Pharmacy has completed the medication reconciliation. Spoke with pt and she confirmed her fathers has only been here for about 2 weeks from [place] and gave nursing a list of medications from his Dr office over there; daughter states she does not know anything about Gabapentin or Megestrol as listed and pt daughter has Rx bottles on hand of Divalproex 250mg BID, Furosemide 20mg BID, Verapramil 80mg QD and Famotidine 20mg QD that were not listed on the providers med list and pt daughter confirmed pt taking Atorvastatin 20mg; on list it has 40mg and Lisinopril 10mg; on list it has 20mg.
[2025-05-25] MEDS: Lactated Ringers 1,000 ML 80 ML IVCONT (15:18)
--- NOTE | 2025-05-25 16:51 | PC.NURSE ---
pt has been sleeping for most of this afternoon after LP by Bairon Thakkar. 400ml urine in purewick container LR infusing on pump at 80ml/hr waiting bed assignment
--- NOTE | 2025-05-25 18:09 | PC.NURSE ---
pt does not follow commands and is unable to participate in nursing swallow eval
--- NOTE | 2025-05-25 20:07 | PC.NURSE ---
assumed care of pt, pt rectal temp taken, temp 98.9, respirations even and unlabored.
[2025-05-25] MEDS: Acyclovir Sodium 730 MG in 0.9 % Sodium Chloride 250 ML 264.6 MG IV (20:33)
--- NOTE | 2025-05-25 20:58 | PC.NURSE ---
pt verbalized generalized pain 01/30, provider advised, waiting new orders
--- NOTE | 2025-05-25 22:46 | PC.NURSE ---
pharmacy brought don Acyclovir, medication was previously mixed and hung by this RN. Acyclovir placed in L fridge in [place], Madonna RN witnessed.
[2025-05-26] VITALS (7 sets, daily range): BP systolic 122–146; BP diastolic 56–78; PULSE 70–82; RESP 17–20; TEMP 36.5–37.3; O2SAT 93–100; BMI 28.5
--- NOTE | 2025-05-26 | EEG_ITS ---
Roomed Performed:?402 Reason: encephalopathy History: H/O hypertension, stroke, cong's disease, BPH, hyperlipidemia, mood disorder - Patient was brought to ED after 2-3 days of increasing confusion. Patient was found to have a fever and tested positive for norovirus. Medication: atorvastatin, baclofen, diazepam, divalproex, donepezil, famotidine, fluticasone, furosemide, doxycycline, lisinopril, melatonin, memantine, ondansetron, sertraline, tamsulosin, verapamil Technical description Photic stimulation: completed Hyperventilation:?omitted Behavioral state: patient is sleepy, patient noted to have shaking/jerking when waking up State of Consciousness: awake and sleep Skull defect: none Sedation: none Handedness: right Duration of study:? 23 min 41 sec Description: This is a 16 channel EEG with an EKG lead. Patient is reported awake and sleep during the tracing. Background EEG rhythm is medium amplitude mixed theta beta with no obvious asymmetry or paroxysmal tendency. Photic stimulation does not produce any significant abnormality. Hyperventilation is not performed. Cardiac lead does not reveal any significant abnormality. No sharp wave spikes or paroxysmal tendency noted. Impression: Mild generalized slowing with no evidence of seizure disorder MTDD
[2025-05-26] MEDS: diazePAM 10 MG/2 ML CARTRIDGE IVPUSH (03:46)
[2025-05-26] MEDS: Lactated Ringers 1,000 ML 80 ML IVCONT ×2 (03:46→15:20)
[2025-05-26 06:04] LABS: MANUAL DIFF FLAG NO
[2025-05-26 06:17] LABS: Hematocrit 43.2 % (42.0-52.0); Hemoglobin 14.3 g/dl (14.0-18.0); Imm Gran Abs Auto 0.11 X10*3/uL (0.00-0.03); Imm Gran Pct Auto 0.7 % (0.0-0.4); Lymphocytes Absolute Auto 1.0 X10*3/uL (1.2-4.9); Mean Corpuscular HGB Conc 33.1 g/dl (31.0-36.0); Mean Corpuscular Hemoglobin 31.0 pg (27.0-33.0); Mean Corpuscular Volume 93.7 fL (80.0-98.0); NRBC Abs Auto 0.000 X10*3/uL (0.0-0.012); NRBC Pct Auto 0.0 /100WBC (0.0-0.2); Platelet Count 115 X10*3/uL (160-400); Red Blood Count 4.61 X10*6/uL (4.60-5.80); White Blood Count 16.5 X10*3/uL (4.8-10.8)
[2025-05-26 06:35] LABS: Anion Gap 13 (12-20); Blood Urea Nitrogen 17 mg/dL (9-16); Calcium 9.1 mg/dL (8.4-10.2); Carbon Dioxide 21 mmol/L (22-29); Chloride 110 mmol/L (96-108); Creatinine Clr Calc Pharmacy 124.7; Estimated Glomerular Filt Rate > 60; Potassium 3.9 mmol/L (3.3-5.1); Sodium 140 mmol/L (135-145)
--- NOTE | 2025-05-26 08:03 | HO.PM.IMPN ---
Subjective Subjective Date of Service: 05/26/25 Interval History: encephalopathy Review of Systems has 1 bm mental status improving no fevers or abd pain Review of Systems: Yes all other systems are reviewed and are negative Physical Exam Exam: Exam: Appearance: Alert.? Oriented X2,easlily directable. cvs: rrr, [id number] . res: clear to auscultation ,no rhonchii or wheezing abd: no rebound or guarding ,nt, bs present. ext pulses present , no cyanosis . neuro: axo3 , nonfocal. Vital Signs: Vital Signs: Last Vital Signs Temp 97.8 F 05/26/25 07:20 Pulse 73 05/26/25 07:20 Resp 20 05/26/25 07:20 BP 146/66 H 05/26/25 07:20 Pulse Ox 93 05/26/25 07:20 O2 Del Method Room Air 05/26/25 07:20 BMI result Body Mass Index 28.5 Objective Data Active Medications Acetaminophen (Acetaminophen 325 Mg Tablet) 650 mg PO Q6H PRN PRN Reason: Pain, Mild 1-3,fever,headache Calcium Carbonate (Calcium Carbonate 750 Mg Tab.Chew) 750 mg PO Q4H PRN PRN Reason: Heartburn Ceftriaxone Sodium (Ceftriaxone Sodium 2 Gm Vial) 2 gm IVPUSH Q12H [facility] Last Admin: 05/25/25 20:33 Dose: 2 gm Documented By: WYATT Diazepam (Diazepam 10 Mg/2 Ml Cartridge) 5 mg IVPUSH Q6H PRN PRN Reason: anxiety/restlessness Fluticasone Propionate (Fluticasone Propionate Nasal 16 Gm [place]) 2 spray NOSTRIL-B DAILY PRN PRN Reason: Allergy Symptoms Acyclovir Sodium 730 mg/ (Sodium Chloride) 264.6 mls @ 264.6 mls/hr IV Q8H [facility] Last Admin: 05/26/25 07:22 Dose: Not Given Documented By: KACY Non-Admin Reason: med not avail. pharmacy not here Lactated Ringer's (Lr) 1,000 mls @ 80 mls/hr IVCONT .[id number] [facility] Last Admin: 05/26/25 03:46 Dose: 80 mls/hr Documented By: KACY Vancomycin HCl 1,250 mg/ (Sodium Chloride) 250 mls @ 166.667 mls/hr IV Q12H [facility] Influenza Virus Vaccine (Flu Vacc [id number](6mo Up)/Pf 0.5 Ml Syringe) 0.5 ml IM .ONCE ONE Stop: 05/26/25 09:01 Melatonin (Melatonin 3 Mg Tablet) 6 mg PO BEDTIME PRN PRN Reason: Insomnia Morphine Sulfate (Morphine Sulfate 2 Mg/Ml Cartridge) 1 mg IVPUSH Q4H PRN; Protocol PRN Reason: Pain, Severe (Pain Scale 7-10) Ondansetron HCl (Ondansetron Hcl 4 Mg/2 Ml Vial) 4 mg IVPUSH Q6H PRN PRN Reason: Nausea and Vomiting Last Admin: 05/26/25 03:45 Dose: 4 mg Documented By: KACY Pharmacy Consult (Consult Rx Vancomycin Dosing) 1 each MISCELLANE DAILY PRN PRN Reason: Consult order Sodium Chloride (0.9 % Sodium Chloride Flush 3 Ml Syringe) 3 ml IVFLUSH QSHIFT [facility] Last Admin: 05/26/25 00:31 Dose: Not Given Documented By: WYATT Non-Admin Reason: IV Running Labs 05/26/25 05:59 05/26/25 05:59 Labs: Laboratory Results - last 24 hr 05/25/25 05/25/25 05/25/25 08:22 08:49 10:24 MCV 94.6 MCH 30.9 MCHC 32.7 RDW 13.2 Plt Count 107 L MPV 12.0 Immature Gran % (Auto) 0.6 H Neut % (Auto) 80.7 H Lymph % (Auto) 7.9 L [place] % (Auto) 10.2 Eos % (Auto) 0.3 Baso % (Auto) 0.3 Lymph # (Auto) 1.3 Traverse # (Auto) 1.6 H Eos # (Auto) 0.0 Baso # (Auto) 0.0 Abs Immat Gran (auto) 0.09 H Absolute Neuts (auto) 12.9 H Absolute Nucleated RBC 0.000 Nucleated RBC % (auto) 0.0 Smear Tech's Comments VERIFIED Anion Gap 11 L Estim Creat Clear Calc 80.9 Estimated GFR > 60 Random Glucose 97 Lactic Acid 1.1 Calcium 9.6 Magnesium 2.0 Total Bilirubin 0.6 Direct Bilirubin 0.2 AST 25 ALT 29 Alkaline Phosphatase 70 Troponin I High Sens < 2.7 C-Reactive Protein 15.29 H Total Protein 8.2 H Albumin 4.7 Lipase 29 Urine Color Yellow Urine Appearance Clear Urine pH 5.5 Ur Specific [place] >= 1.030 H Urine Protein Negative Urine Glucose (UA) Negative Urine Ketones Trace Urine Blood Trace H Urine Nitrite Negative Ur Leukocyte Esterase Negative Urine RBC 0-2 Urine WBC 0-5 Ur Squamous Epith Cells 3-5 Urine Bacteria None Seen Hyaline Casts 0-2 CSF Tube Number CSF Volume CSF Appearance CSF Color CSF WBC CSF RBC CSF Lymphocytes CSF Appearance (b) CSF Glucose CSF Total Protein CSF C.neoform/gat PCR CSF CMV DNA (PCR) CSF Enterovirus (PCR) CSF E. coli K1 (PCR) CSF H. influenzae (PCR) CSF HSV I (PCR) CSF HSV II (PCR) CSF HHV 6 (PCR) CSF L.monocytogenes PCR CSF N. meningitidis PCR CSF Parechovirus (PCR) CSF S. agalactiae (PCR) CSF S. pneumoniae (PCR) CSF VZV (PCR) Stl C. cayetanensis PCR Stool Rotavirus A PCR Stl Adenov F 40/41 PCR Stool Astrovirus (PCR) Stool Campylobacter PCR Stool Cryptosporidium PCR Stl Sh Tox Pr E STEC PCR Stool E coli O157 PCR Stl Enterotoxigenic E PCR Stool EPEC (PCR) Stool EAEC (PCR) Stl E. histolytica PCR Stool Giardia Lamblia PCR Stl P. shigelloides PCR Stool Salmonella PCR Stool Sapovirus (PCR) Stl Shigella/EIEC PCR St Y.enterocolitica PCR Stool Vibrio (PCR) Stl Vibrio cholerae PCR Stl Norovirus GI/GII PCR Respiratory Panel Shepard See Note Adenovirus (Rapid PCR) Not Detected B.pert (TEM-PCR) Not Detected B.parapertussis DNA PCR Not Detected C. pneumoniae DNA (PCR) Not Detected C. difficile Tox B Gene Coronavirus OC43 (PCR) Not Detected Coronavirus HKU1 (PCR) Not Detected Coronavirus 229E (PCR) Not Detected Coronavirus NL63 (PCR) Not Detected Human Metapneumovir PCR Not Detected Influenza A (RT-PCR) Not Detected Influenza A (H1) PCR Not Detected Influ A (H1/09) PCR Not Detected Influenza A (H3) PCR Not Detected Influenza Type A (PCR) NEGATIVE Influenza B (RT-PCR) Not Detected Influenza Type B (PCR) NEGATIVE M. pneumoniae (PCR) Not Detected Parainfluenza 1 (PCR) Not Detected Parainfluenza 2 (PCR) Not Detected Parainfluenza 3 (PCR) Not Detected Parainfluenza 4 (PCR) Not Detected RSV (PCR) Not Detected RSV RNA Qual (PCR) NEGATIVE Entero/Rhino (PCR) Not Detected SARS-CoV-2 RNA (RT-PCR) NEGATIVE Not Detected 05/25/25 05/25/25 05/25/25 11:16 13:28 13:28 MCV MCH MCHC RDW Plt Count MPV Immature Gran % (Auto) Neut % (Auto) Lymph % (Auto) Traverse % (Auto) Eos % (Auto) Baso % (Auto) Lymph # (Auto) [place]verse # (Auto) Eos # (Auto) Baso # (Auto) Abs Immat Gran (auto) Absolute Neuts (auto) Absolute Nucleated RBC Nucleated RBC % (auto) Smear Tech's Comments Anion Gap Estim Creat Clear Calc Estimated GFR Random Glucose Lactic Acid Calcium Magnesium Total Bilirubin Direct Bilirubin AST ALT Alkaline Phosphatase Troponin I High Sens C-Reactive Protein Total Protein Albumin Lipase Urine Color Urine Appearance Urine pH Ur Specific [place] Urine Protein Urine Glucose (UA) Urine Ketones Urine Blood Urine Nitrite Ur Leukocyte Esterase Urine RBC Urine WBC Ur Squamous Epith Cells Urine Bacteria Hyaline Casts CSF Tube Number 1 4 CSF Volume 1.0 CSF Appearance CLEAR CSF Color COLORLESS CSF WBC 1 CSF RBC 0 CSF Lymphocytes 100 CSF Appearance (b) Clear, Colorless CSF Glucose 60 CSF Total Protein 56.6 H CSF C.neoform/gat PCR Not Detected CSF CMV DNA (PCR) Not Detected CSF Enterovirus (PCR) Not Detected CSF E. coli K1 (PCR) Not Detected CSF H. influenzae (PCR) Not Detected CSF HSV I (PCR) Not Detected CSF HSV II (PCR) Not Detected CSF HHV 6 (PCR) Not Detected CSF L.monocytogenes PCR Not Detected CSF N. meningitidis PCR Not Detected CSF Parechovirus (PCR) Not Detected CSF S. agalactiae (PCR) Not Detected CSF S. pneumoniae (PCR) Not Detected CSF VZV (PCR) Not Detected Stl C. cayetanensis PCR Not Detected Stool Rotavirus A PCR Not Detected Stl Adenov F 40/41 PCR Not Detected Stool Astrovirus (PCR) Not Detected Stool Campylobacter PCR Not Detected Stool Cryptosporidium PCR Not Detected Stl Sh Tox Pr E STEC PCR Not Detected Stool E coli O157 PCR Not applicable Stl Enterotoxigenic E PCR Not Detected Stool EPEC (PCR) Not Detected Stool EAEC (PCR) Not Detected Stl E. histolytica PCR Not Detected Stool Giardia Lamblia PCR Not Detected Stl P. shigelloides PCR Not Detected Stool Salmonella PCR Not Detected Stool Sapovirus (PCR) Not Detected Stl Shigella/EIEC PCR Not Detected St Y.enterocolitica PCR Not Detected Stool Vibrio (PCR) Not Detected Stl Vibrio cholerae PCR Not Detected Stl Norovirus GI/GII PCR Detected A Respiratory Panel Shepard Adenovirus (Rapid PCR) B.pert (TEM-PCR) B.parapertussis DNA PCR C. pneumoniae DNA (PCR) C. difficile Tox B Gene NEGATIVE Coronavirus OC43 (PCR) Coronavirus HKU1 (PCR) Coronavirus 229E (PCR) Coronavirus NL63 (PCR) Human Metapneumovir PCR Influenza A (RT-PCR) Influenza A (H1) PCR Influ A (H1/09) PCR Influenza A (H3) PCR Influenza Type A (PCR) Influenza B (RT-PCR) Influenza Type B (PCR) M. pneumoniae (PCR) Parainfluenza 1 (PCR) Parainfluenza 2 (PCR) Parainfluenza 3 (PCR) Parainfluenza 4 (PCR) RSV (PCR) RSV RNA Qual (PCR) Entero/Rhino (PCR) SARS-CoV-2 RNA (RT-PCR) 05/26/25 05:59 MCV 93.7 MCH 31.0 MCHC 33.1 RDW 12.9 Plt Count 115 L MPV 12.3 Immature Gran % (Auto) 0.7 H Neut % (Auto) 85.8 H Lymph % (Auto) 5.8 L [place] % (Auto) 7.5 Eos % (Auto) 0.0 Baso % (Auto) 0.2 Lymph # (Auto) 1.0 L [place] # (Auto) 1.2 Eos # (Auto) 0.0 Baso # (Auto) 0.0 Abs Immat Gran (auto) 0.11 H Absolute Neuts (auto) 14.2 H Absolute Nucleated RBC 0.000 Nucleated RBC % (auto) 0.0 Smear Tech's Comments Anion Gap 13 Estim Creat Clear Calc 124.7 Estimated GFR > 60 Random Glucose 117 H Lactic Acid Calcium 9.1 Magnesium Total Bilirubin Direct Bilirubin AST ALT Alkaline Phosphatase Troponin I High Sens C-Reactive Protein Total Protein Albumin Lipase Urine Color Urine Appearance Urine pH Ur Specific [place] Urine Protein Urine Glucose (UA) Urine Ketones Urine Blood Urine Nitrite Ur Leukocyte Esterase Urine RBC Urine WBC Ur Squamous Epith Cells Urine Bacteria Hyaline Casts CSF Tube Number CSF Volume CSF Appearance CSF Color CSF WBC CSF RBC CSF Lymphocytes CSF Appearance (b) CSF Glucose CSF Total Protein CSF C.neoform/gat PCR CSF CMV DNA (PCR) CSF Enterovirus (PCR) CSF E. coli K1 (PCR) CSF H. influenzae (PCR) CSF HSV I (PCR) CSF HSV II (PCR) CSF HHV 6 (PCR) CSF L.monocytogenes PCR CSF N. meningitidis PCR CSF Parechovirus (PCR) CSF S. agalactiae (PCR) CSF S. pneumoniae (PCR) CSF VZV (PCR) Stl C. cayetanensis PCR Stool Rotavirus A PCR Stl Adenov F 40/41 PCR Stool Astrovirus (PCR) Stool Campylobacter PCR Stool Cryptosporidium PCR Stl Sh Tox Pr E STEC PCR Stool E coli O157 PCR Stl Enterotoxigenic E PCR Stool EPEC (PCR) Stool EAEC (PCR) Stl E. histolytica PCR Stool Giardia Lamblia PCR Stl P. shigelloides PCR Stool Salmonella PCR Stool Sapovirus (PCR) Stl Shigella/EIEC PCR St Y.enterocolitica PCR Stool Vibrio (PCR) Stl Vibrio cholerae PCR Stl Norovirus GI/GII PCR Respiratory Panel [place] Adenovirus (Rapid PCR) B.pert (TEM-PCR) B.parapertussis DNA PCR C. pneumoniae DNA (PCR) C. difficile Tox B Gene Coronavirus OC43 (PCR) Coronavirus HKU1 (PCR) Coronavirus 229E (PCR) Coronavirus NL63 (PCR) Human Metapneumovir PCR Influenza A (RT-PCR) Influenza A (H1) PCR Influ A (H1/09) PCR Influenza A (H3) PCR Influenza Type A (PCR) Influenza B (RT-PCR) Influenza Type B (PCR) M. pneumoniae (PCR) Parainfluenza 1 (PCR) Parainfluenza 2 (PCR) Parainfluenza 3 (PCR) Parainfluenza 4 (PCR) RSV (PCR) RSV RNA Qual (PCR) Entero/Rhino (PCR) SARS-CoV-2 RNA (RT-PCR) Microbiology Microbiology Results: Microbiology 05/25/25 13:28 Gram Stain - Final Cerebrospinal Fluid Fluid Description - Final Assessment and Plan (1) Norovirus: Status: Acute Plan 59-year-old male with history of Parkinson's disease, history of stroke, BPH, hyperlipidemia, hypertension, mood disorder, who moved to the [facility] from [place] 3 weeks ago and presented to the emergency department due to 2-3 days of increased confusion found to have fever and tested positive for norovirus Acute toxic metabolic encephalopathy On a background of Parkinson's disease and probable vascular UA, CXR, RPP, AP CT and brain CT negative for acute infection likley due to norovirus LP:only 1 wbc , protein 56 rule out meningitis/encephalitis-negative csf lyme test pending, csf culture negative . blood cultures -neg@24hrs neuro checks bedside swallow patient passed -started diet Norovirus Supportive care Gentle IV fluid rehydration (on lasix at baseline, unclear EF) Thrombocytopenia No baseline for comparison Trend CBC HTN bp borderline hold baseline meds lisinopril, lasix, verapamil mood continue baseline meds when able to safely take po . h/o CVA continue statin when able to take po Parkinson's disease/dementia does not appear to be on sinemet on baclofen, donepezil and memantine - resume when able to take po DVT prophylaxis-mechanical devices . Code status-full code. ongoing need for stay:Acute toxic metabolic encephalopathy -moniter mental status closely, avoid medications conversive mental status, workup pending. Quality Stroke Does the patient have a stroke diagnosis?: No VTE Prior VTE?: No VTE Risk Level:: Medical - moderate - high VTE Device Contraindication: N/A - Device Ordered VTE Drug Contraindication: Treatment Not Indicated
[2025-05-26] MEDS: 0.9 % Sodium Chloride Flush 3 ML SYRINGE IVFLUSH ×2 (08:32→15:23)
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
--- NOTE | 2025-05-26 11:05 | MHC.CM.PN ---
IMM 05/26/25, Pt. and dtr are SSO, pt. recently moved from [place] to [place] to live with his dtr. He does not have home care services or use DME. He has cognitive confusion. His dtr wanted to complete a HCP, however, pt. does not understand, and so CM explained that he cannot sign if he does not understand, and that we can try later if he is better. Family can transport home at [place]. DTR had questions about insurance, financial referral submitted. DCP: home with familiy care. CM to follow for DC needs.
[2025-05-26 13:52] LABS: HIV Num 1 0.07 S/CO (0.00-0.99); Syphilis Screen Nonreactive (Nonreactive)
[2025-05-26] MEDS: diazePAM 10 MG/2 ML CARTRIDGE 5 MG IVPUSH (21:59)
[2025-05-27] VITALS (7 sets, daily range): BP systolic 113–135; BP diastolic 56–68; PULSE 52–72; RESP 12–20; TEMP 36.3–37.1; O2SAT 95–98
[2025-05-27 07:45] LABS: Hematocrit 36.3 % (42.0-52.0); Hemoglobin 12.7 g/dl (14.0-18.0); Mean Corpuscular HGB Conc 35.0 g/dl (31.0-36.0); Mean Corpuscular Hemoglobin 31.8 pg (27.0-33.0); Mean Corpuscular Volume 91.0 fL (80.0-98.0); NRBC Abs Auto 0.000 X10*3/uL (0.0-0.012); NRBC Pct Auto 0.0 /100WBC (0.0-0.2); Platelet Count 132 X10*3/uL (160-400); Red Blood Count 3.99 X10*6/uL (4.60-5.80); White Blood Count 8.9 X10*3/uL (4.8-10.8)
[2025-05-27 08:00] LABS: Anion Gap 10 (12-20); Blood Urea Nitrogen 17 mg/dL (9-16); Calcium 8.5 mg/dL (8.4-10.2); Carbon Dioxide 25 mmol/L (22-29); Chloride 110 mmol/L (96-108); Creatinine Clr Calc Pharmacy 107.5; Estimated Glomerular Filt Rate > 60; Potassium 3.5 mmol/L (3.3-5.1); Sodium 141 mmol/L (135-145)
[2025-05-27] MEDS: 0.9 % Sodium Chloride Flush 3 ML SYRINGE IVFLUSH ×2 (08:07→21:22)
[2025-05-27] MEDS: Lactated Ringers 1,000 ML 80 ML IVCONT ×2 (08:14→17:07)
--- NOTE | 2025-05-27 08:14 | P.PNIM_ITS ---
Subjective Subjective Date of Service: 05/27/25 Interval History: encephalopathy Review of Systems mental staus slowly improving denies new c/o Review of Systems: Yes all other systems are reviewed and are negative Physical Exam 2 Exam: Exam: Appearance: Alert.? Oriented X2,easlily directable. cvs: rrr, [id number] . res: clear to auscultation ,no rhonchii or wheezing abd: no rebound or guarding ,nt, bs present. ext pulses present , no cyanosis . neuro: axo3 , nonfocal. Vital Signs: Vital Signs: Last Vital Signs Temp 98.5 F 05/27/25 07:15 Pulse 52 05/27/25 07:15 Resp 20 05/27/25 07:15 BP 128/56 L 05/27/25 07:15 Pulse Ox 95 05/27/25 07:15 O2 Del Method Room Air 05/27/25 07:15 BMI result Body Mass Index 28.5 Objective Data Active Medications Acetaminophen (Acetaminophen 325 Mg Tablet) 650 mg PO Q6H PRN PRN Reason: Pain, Mild 1-3,fever,headache Atorvastatin Calcium (Atorvastatin Calcium 20 Mg Tablet) 20 mg PO DAILY [facility] Baclofen (Baclofen 20 Mg Tablet) 20 mg PO BID [facility] Last Admin: 05/26/25 21:38 Dose: 20 mg Documented By: KACY Calcium Carbonate (Calcium Carbonate 750 Mg Tab.Chew) 750 mg PO Q4H PRN PRN Reason: Heartburn Diazepam (Diazepam 10 Mg/2 Ml Cartridge) 5 mg IVPUSH Q6H PRN PRN Reason: anxiety/restlessness Last Admin: 05/26/25 21:59 Dose: 5 mg Documented By: KACY Divalproex Sodium (Divalproex Sodium 250 Mg Tablet.Dr) 250 mg PO BID [facility] Last Admin: 05/26/25 21:38 Dose: 250 mg Documented By: KACY Donepezil HCl (Donepezil Hcl 10 Mg Tablet) 10 mg PO DAILY [facility] Last Admin: 05/26/25 11:08 Dose: 10 mg Documented By: LIVE Famotidine (Famotidine 20 Mg Tablet) 20 mg PO DAILY [facility] Last Admin: 05/26/25 11:07 Dose: 20 mg Documented By: LIVE Fluticasone Propionate (Fluticasone Propionate Nasal 16 Gm [place]) 2 spray NOSTRIL-B DAILY PRN PRN Reason: Allergy Symptoms Furosemide (Furosemide 20 Mg Tablet) 20 mg PO BID [facility]; Protocol Last Admin: 05/26/25 21:38 Dose: 20 mg Documented By: KACY Lactated Ringer's (Lr) 1,000 mls @ 80 mls/hr IVCONT .[id number] [facility] Last Admin: 05/26/25 15:20 Dose: 80 mls/hr Documented By: LIVE Doxycycline Hyclate 100 mg/ (Sodium Chloride) 250 mls @ 166.67 mls/hr IV BID [facility] Last Infusion: 05/26/25 23:07 Dose: Infused Documented By: KACY Ibuprofen (Ibuprofen 800 Mg Tablet) 800 mg PO TID [facility] Influenza Virus Vaccine (Flu Vacc [id number](6mo Up)/Pf 0.5 Ml Syringe) 0.5 ml IM .ONCE ONE Stop: 05/28/25 09:01 Lisinopril (Lisinopril 10 Mg Tablet) 10 mg PO DAILY [facility]; Protocol Last Admin: 05/26/25 11:07 Dose: 10 mg Documented By: LIVE Melatonin (Melatonin 3 Mg Tablet) 6 mg PO BEDTIME PRN PRN Reason: Insomnia Memantine (Memantine Hcl 10 Mg Tablet) 10 mg PO DAILY [facility] Last Admin: 05/26/25 11:08 Dose: 10 mg Documented By: LIVE Morphine Sulfate (Morphine Sulfate 2 Mg/Ml Cartridge) 1 mg IVPUSH Q4H PRN; Protocol PRN Reason: Pain, Severe (Pain Scale 7-10) Ondansetron HCl (Ondansetron Hcl 4 Mg/2 Ml Vial) 4 mg IVPUSH Q6H PRN PRN Reason: Nausea and Vomiting Last Admin: 05/26/25 03:45 Dose: 4 mg Documented By: KACY Sertraline HCl (Sertraline Hcl 100 Mg Tablet) 100 mg PO DAILY [facility] Last Admin: 05/26/25 11:08 Dose: 100 mg Documented By: LIVE Sodium Chloride (0.9 % Sodium Chloride Flush 3 Ml Syringe) 3 ml IVFLUSH QSHIFT [facility] Last Admin: 05/27/25 00:00 Dose: Not Given Documented By: HO.[email or web address] Non-Admin Reason: iv infiltrated and removed Tamsulosin HCl (Tamsulosin Hcl 0.4 Mg Capsule) 0.4 mg PO DAILY [facility] Last Admin: 05/26/25 11:08 Dose: 0.4 mg Documented By: LIVE Verapamil HCl (Verapamil Hcl 80 Mg Tablet) 80 mg PO DAILY [facility]; Protocol Last Admin: 05/26/25 15:10 Dose: 80 mg Documented By: LIVE Labs 05/27/25 07:07 05/27/25 07:07 Labs: Laboratory Results - last 24 hr 05/26/25 05/26/25 05/27/25 09:22 13:02 07:07 MCV 91.0 MCH 31.8 MCHC 35.0 RDW 13.0 Plt Count 132 L MPV 12.3 Absolute Nucleated RBC 0.000 Nucleated RBC % (auto) 0.0 Anion Gap 10 L Estim Creat Clear Calc 107.5 Estimated GFR > 60 Random Glucose 93 Calcium 8.5 D C-Reactive Protein 4.77 H Random Vancomycin 10.2 L T.pallidum Ab (EIA) Nonreactive HIV 1&2 Ab/P24 Ag 4thGn Nonreactive Microbiology Microbiology Results: Microbiology 05/25/25 08:32 Blood Culture - Preliminary Blood - Venous No growth after 24 hours. 05/25/25 08:22 Blood Culture - Preliminary Blood - Venous No growth after 24 hours. 05/25/25 13:28 Gram Stain - Final Cerebrospinal Fluid Fluid Description - Final CSF Culture - Preliminary No growth after 1 day Assessment and Plan (1) Norovirus: Status: Acute Plan 59-year-old male with history of Parkinson's disease, history of stroke, BPH, hyperlipidemia, hypertension, mood disorder, who moved to the [facility] from [place] 3 weeks ago and presented to the emergency department due to 2- 3 days of increased confusion found to have fever and tested positive for norovirus Acute toxic metabolic encephalopathy On a background of Parkinson's disease and probable vascular UA, CXR, RPP, AP CT and brain CT negative for acute infection likley due to norovirus LP:only 1 wbc , protein 56 rule out meningitis/encephalitis-negative csf lyme test pending, csf culture negative . Treponema pallidum(eia): Nonreactive. Hiv1&2 :Nonreactive. blood cultures -neg@24hrs eeg ordered neuro checks bedside swallow patient passed -started diet. Norovirus Supportive care Gentle IV fluid rehydration (on lasix at baseline, unclear EF) Thrombocytopenia No baseline for comparison Trend CBC HTN bp borderline hold baseline meds lisinopril, lasix, verapamil mood continue baseline meds when able to safely take po . h/o CVA continue statin when able to take po Parkinson's disease/dementia does not appear to be on sinemet on baclofen, donepezil and memantine - resume when able to take po . Generlaised weak: Pt eval pending DVT prophylaxis-mechanical devices . Code status-full code. ongoing need for stay:Acute toxic metabolic encephalopathy -moniter mental status closely, avoid medications conversive mental status, workup pending as well as Pt for dispo. Quality Stroke Does the patient have a stroke diagnosis?: No VTE Prior VTE?: No VTE Risk Level:: Medical - moderate - high VTE Device Contraindication: N/A - Device Ordered VTE Drug Contraindication: Treatment Not Indicated
[2025-05-27 10:46] LABS: Alanine Aminotransferase 20 U/L (0-40); Albumin Level 3.5 g/dL (3.5-5.0); Alkaline Phosphatase 51 U/L (39-117); Aspartate Amino Transferase 23 U/L (5-37); Total Protein 6.2 g/dL (6.5-8.0)
[2025-05-27 11:08] LABS: Ammonia 45 umol/L (13-55)
[2025-05-28] VITALS (7 sets, daily range): BP systolic 116–136; BP diastolic 62–65; PULSE 72–89; RESP 16–20; TEMP 36.1–36.8; O2SAT 94–97
[2025-05-28] MEDS: Lactated Ringers 1,000 ML 80 ML IVCONT (05:45)
--- NOTE | 2025-05-28 14:46 | MHC.SL.SWA ---
Speech Pathologist Impression: Mild oral phase dysphagia Risk of Aspiration Due to: Weakness Lingual fasciculations Hx of CVA DX of PD Dysphasia Diet Status: Recc diet as ordered, pt placed on NDD3 with thins after RN screening, clincial bedside swallow results correlate with current diet order Liquid Consistency and Strategies for Safe Swallow: Liquid Intake Recommendation: Thin Liquid Intake Strategies: Solid Food Consistency: Dietary Recommendations: Chopped/Advanced (NDD3) Additional Modifications to Solid Foods: Oral Medication Intake: Whole with Puree Please contact the pharmacy regarding appropriate crushable or liquid drug formulations that are available whenever modified delivery is recommended. Compensatory Strategies and Precautions to be Taken for Safe Swallow: Supervision While Eating and Drinking for Safe Swallow: Foods to Avoid: Swallowing Recommended Treatments: Recommendation for Speech: Comment: OM mobility adequate, though lingual fasciculations intermittently evident. ROM for jaw, lips and tongue WFL. Pt voice absent of wetness, though sustained voicing across syllables occasionally absent. Cognitive challenges considered factor in pt's voice trailing off, unintentional vs physiological. Pt passed RN swallow screen, RN recc chopped diet with thin liquids. Pt seen with server manager present for clinical bedside swallow evaluation with CRM CONSULTANT. Pt alert and verbally responsive, benefitting from repetitions to process auditory information. Pt observed to have significant visual challenges, with delayed tracking of speakers and inability to see cracker placed in front of him. MD notified of concern. Oropharyngeal coordination mildly decreased in efficiency of bolus containment, but mild anterior loss of fluid and food was brief, with pt improving oropharyngeal coordination over course of several bites. Pt did endorse having hx of difficulty eating but could not describe dysphagia. Pt attempted to hold containers but unable to grasp. No overt s/s of aspiration observed with trials of chopped solids, tsps of purees, and sips of thin liquids by cup and by straw. Recc NDD3 with thins, straws ok, meds whole in puree or with liquid, 1:1 feeding necessary d/t UE tremors/weakness. CRM CONSULTANT will follow. Frequency/Duration: Daily Date Range for Service Req: Timeline to reassess: Welder Apprentice Clinican/Clinical Fellow: No Supervisory Statement: I have reviewed and agree with the student/clinical fellow's documentation: N/A Speech Language Pathologist: Masha Polk M.S., CCC-CRM CONSULTANT
[2025-05-28] MEDS: 0.9 % Sodium Chloride Flush 3 ML SYRINGE IVFLUSH ×2 (15:20→20:33)
--- NOTE | 2025-05-28 15:39 | HO.PM.IMPN ---
Subjective Subjective Date of Service: 05/29/25 Interval History: encephalopathy Review of Systems mental staus slowly improving denies new c/o Physical Exam Exam: Exam: Appearance: Alert.? Oriented X2,easlily directable. cvs: rrr, [id number] . res: clear to auscultation ,no rhonchii or wheezing abd: no rebound or guarding ,nt, bs present. ext pulses present , no cyanosis . neuro: axo3 , nonfocal. Vital Signs: Vital Signs: Last Vital Signs Temp 98.3 F 05/28/25 15:04 Pulse 89 05/28/25 15:04 Resp 17 05/28/25 15:04 BP 126/64 05/28/25 15:04 Pulse Ox 94 05/28/25 15:04 O2 Del Method Room Air 05/28/25 15:04 BMI result Body Mass Index 28.5 Objective Data Active Medications Acetaminophen (Acetaminophen 325 Mg Tablet) 650 mg PO Q6H PRN PRN Reason: Pain, Mild 1-3,fever,headache Last Admin: 05/28/25 08:11 Dose: 650 mg Documented By: LIVE Atorvastatin Calcium (Atorvastatin Calcium 20 Mg Tablet) 20 mg PO DAILY [facility] Last Admin: 05/28/25 08:12 Dose: 20 mg Documented By: LIVE Baclofen (Baclofen 20 Mg Tablet) 20 mg PO BID [facility] Last Admin: 05/28/25 08:12 Dose: 20 mg Documented By: LIVE Calcium Carbonate (Calcium Carbonate 750 Mg Tab.Chew) 750 mg PO Q4H PRN PRN Reason: Heartburn Diazepam (Diazepam 10 Mg/2 Ml Cartridge) 5 mg IVPUSH Q6H PRN PRN Reason: anxiety/restlessness Last Admin: 05/26/25 21:59 Dose: 5 mg Documented By: KACY Divalproex Sodium (Divalproex Sodium 250 Mg Tablet.Dr) 250 mg PO BID [facility] Last Admin: 05/28/25 08:11 Dose: 250 mg Documented By: LIVE Donepezil HCl (Donepezil Hcl 10 Mg Tablet) 10 mg PO DAILY [facility] Last Admin: 05/28/25 08:11 Dose: 10 mg Documented By: LIVE Famotidine (Famotidine 20 Mg Tablet) 20 mg PO DAILY [facility] Last Admin: 05/28/25 08:12 Dose: 20 mg Documented By: LIVE Fluticasone Propionate (Fluticasone Propionate Nasal 16 Gm [place]) 2 spray NOSTRIL-B DAILY PRN PRN Reason: Allergy Symptoms Furosemide (Furosemide 20 Mg Tablet) 20 mg PO BID [facility]; Protocol Last Admin: 05/28/25 08:11 Dose: 20 mg Documented By: LIVE Doxycycline Hyclate 100 mg/ (Sodium Chloride) 250 mls @ 166.67 mls/hr IV BID [facility] Last Infusion: 05/28/25 11:07 Dose: Infused Documented By: LIVE Ibuprofen (Ibuprofen 800 Mg Tablet) 800 mg PO TID [facility] Last Admin: 05/28/25 15:20 Dose: 800 mg Documented By: LIVE Influenza Virus Vaccine (Flu Vacc [id number](6mo Up)/Pf 0.5 Ml Syringe) 0.5 ml IM .ONCE ONE Stop: 05/29/25 09:01 Lisinopril (Lisinopril 10 Mg Tablet) 10 mg PO DAILY [facility]; Protocol Last Admin: 05/28/25 08:12 Dose: 10 mg Documented By: LIVE Melatonin (Melatonin 3 Mg Tablet) 6 mg PO BEDTIME PRN PRN Reason: Insomnia Memantine (Memantine Hcl 10 Mg Tablet) 10 mg PO DAILY [facility] Last Admin: 05/28/25 08:12 Dose: 10 mg Documented By: LIVE Morphine Sulfate (Morphine Sulfate 2 Mg/Ml Cartridge) 1 mg IVPUSH Q4H PRN; Protocol PRN Reason: Pain, Severe (Pain Scale 7-10) Ondansetron HCl (Ondansetron Hcl 4 Mg/2 Ml Vial) 4 mg IVPUSH Q6H PRN PRN Reason: Nausea and Vomiting Last Admin: 05/26/25 03:45 Dose: 4 mg Documented By: KACY Sertraline HCl (Sertraline Hcl 100 Mg Tablet) 100 mg PO DAILY [facility] Last Admin: 05/28/25 08:12 Dose: 100 mg Documented By: LIVE Sodium Chloride (0.9 % Sodium Chloride Flush 3 Ml Syringe) 3 ml IVFLUSH QSHIFT [facility] Last Admin: 05/28/25 15:20 Dose: 3 ml Documented By: LIVE Tamsulosin HCl (Tamsulosin Hcl 0.4 Mg Capsule) 0.4 mg PO DAILY [facility] Last Admin: 05/28/25 08:11 Dose: 0.4 mg Documented By: LIVE Verapamil HCl (Verapamil Hcl 80 Mg Tablet) 80 mg PO DAILY [facility]; Protocol Last Admin: 05/28/25 08:12 Dose: 80 mg Documented By: LIVE Labs 05/27/25 07:07 05/27/25 07:07 Microbiology Microbiology Results: Microbiology 05/25/25 13:28 Gram Stain - Final Cerebrospinal Fluid Fluid Description - Final CSF Culture - Final No growth after 3 days. Assessment and Plan (1) Norovirus: Status: Acute Plan 59-year-old male with history of Parkinson's disease, history of stroke, BPH, hyperlipidemia, hypertension, mood disorder, who moved to the [facility] from [place] 3 weeks ago and presented to the emergency department due to 2-3 days of increased confusion found to have fever and tested positive for norovirus Acute toxic metabolic encephalopathy On a background of Parkinson's disease and probable vascular UA, CXR, RPP, AP CT and brain CT negative for acute infection likley due to norovirus LP:only 1 wbc , protein 56 rule out meningitis/encephalitis-negative csf lyme test pending, csf culture negative . Treponema pallidum(eia): Nonreactive. Hiv1&2 :Nonreactive. blood cultures -neg@24hrs eeg done pending bedside swallow patient passed -started diet. Norovirus Supportive care stop fluids(on lasix at baseline, unclear EF) Thrombocytopenia No baseline for comparison Trend CBC HTN bp borderline hold baseline meds lisinopril, lasix, verapamil. mood continue baseline meds when able to safely take po . h/o CVA continue statin when able to take po Parkinson's disease/dementia does not appear to be on sinemet on baclofen, donepezil and memantine - resume when able to take po . Generlaised weak: Pt eval pending DVT prophylaxis-mechanical devices . Code status-full code. ongoing need for stay:Pt eval and dispo plannin Quality Stroke Does the patient have a stroke diagnosis?: No VTE Prior VTE?: No VTE Risk Level:: Medical - moderate - high VTE Device Contraindication: N/A - Device Ordered VTE Drug Contraindication: Treatment Not Indicated
--- NOTE | 2025-05-28 16:43 | MHC.CM.PN ---
PT ATTEMPTED TO EVALUATE PT WHO WAS UNABLE TO PROVIDE INFO OR COMPLETE EVAL THEY WILL TRY AGAIN WHEN PTS DAUGHTER CAN BE PRESENT
--- NOTE | 2025-05-28 16:46 | W.PM.IDCN ---
History of Present Illness Data of Consult Service Date: 05/28/25 Requesting physician: Valery Luna Primary Care Provider: MD MANUELA Duran Reason for consult: weakness ?infection He presents with weakness and fatigue. He has Parkinsons CSF was unremarkable. Review of Systems Review of Systems: Yes Unobtainable due to mental status PMFSH Past Medical History Medical History BPH (benign prostatic hyperplasia) HTN (hypertension) Parkinson disease Stroke Family History Family history: reviewed and not pertinent Social History Social History Household Members: Children Housing: Unknown / Unable to assess Do you presently have visiting nurse or other home services: No Alcohol intake: never Patient Tobacco Use Status: Never used Tobacco service: No Meds Allergies Allergy/AdvReac Type Severity Reaction Status Date / Time No Known Allergies Allergy Verified 05/25/25 07:52 Active Medications: Current Medications Acetaminophen (Acetaminophen 325 Mg Tablet) 650 mg PO Q6H PRN PRN Reason: Pain, Mild 1-3,fever,headache Last Admin: 05/28/25 08:11 Dose: 650 mg Atorvastatin Calcium (Atorvastatin Calcium 20 Mg Tablet) 20 mg PO DAILY [facility] Last Admin: 05/28/25 08:12 Dose: 20 mg Baclofen (Baclofen 20 Mg Tablet) 20 mg PO BID [facility] Last Admin: 05/28/25 08:12 Dose: 20 mg Calcium Carbonate (Calcium Carbonate 750 Mg Tab.Chew) 750 mg PO Q4H PRN PRN Reason: Heartburn Diazepam (Diazepam 10 Mg/2 Ml Cartridge) 5 mg IVPUSH Q6H PRN PRN Reason: anxiety/restlessness Last Admin: 05/26/25 21:59 Dose: 5 mg Divalproex Sodium (Divalproex Sodium 250 Mg Tablet.Dr) 250 mg PO BID [facility] Last Admin: 05/28/25 08:11 Dose: 250 mg Donepezil HCl (Donepezil Hcl 10 Mg Tablet) 10 mg PO DAILY [facility] Last Admin: 05/28/25 08:11 Dose: 10 mg Famotidine (Famotidine 20 Mg Tablet) 20 mg PO DAILY [facility] Last Admin: 05/28/25 08:12 Dose: 20 mg Fluticasone Propionate (Fluticasone Propionate Nasal 16 Gm [place]) 2 spray NOSTRIL-B DAILY PRN PRN Reason: Allergy Symptoms Furosemide (Furosemide 20 Mg Tablet) 20 mg PO BID [facility]; Protocol Last Admin: 05/28/25 08:11 Dose: 20 mg Doxycycline Hyclate 100 mg/ (Sodium Chloride) 250 mls @ 166.67 mls/hr IV BID [facility] Last Infusion: 05/28/25 11:07 Dose: Infused Ibuprofen (Ibuprofen 800 Mg Tablet) 800 mg PO TID [facility] Last Admin: 05/28/25 15:20 Dose: 800 mg Influenza Virus Vaccine (Flu Vacc [id number](6mo Up)/Pf 0.5 Ml Syringe) 0.5 ml IM .ONCE ONE Stop: 05/29/25 09:01 Lisinopril (Lisinopril 10 Mg Tablet) 10 mg PO DAILY [facility]; Protocol Last Admin: 05/28/25 08:12 Dose: 10 mg Melatonin (Melatonin 3 Mg Tablet) 6 mg PO BEDTIME PRN PRN Reason: Insomnia Memantine (Memantine Hcl 10 Mg Tablet) 10 mg PO DAILY [facility] Last Admin: 05/28/25 08:12 Dose: 10 mg Morphine Sulfate (Morphine Sulfate 2 Mg/Ml Cartridge) 1 mg IVPUSH Q4H PRN; Protocol PRN Reason: Pain, Severe (Pain Scale 7-10) Ondansetron HCl (Ondansetron Hcl 4 Mg/2 Ml Vial) 4 mg IVPUSH Q6H PRN PRN Reason: Nausea and Vomiting Last Admin: 05/26/25 03:45 Dose: 4 mg Sertraline HCl (Sertraline Hcl 100 Mg Tablet) 100 mg PO DAILY [facility] Last Admin: 05/28/25 08:12 Dose: 100 mg Sodium Chloride (0.9 % Sodium Chloride Flush 3 Ml Syringe) 3 ml IVFLUSH QSHIFT [facility] Last Admin: 05/28/25 15:20 Dose: 3 ml Tamsulosin HCl (Tamsulosin Hcl 0.4 Mg Capsule) 0.4 mg PO DAILY [facility] Last Admin: 05/28/25 08:11 Dose: 0.4 mg Verapamil HCl (Verapamil Hcl 80 Mg Tablet) 80 mg PO DAILY [facility]; Protocol Last Admin: 05/28/25 08:12 Dose: 80 mg Home Medications ?Medication ?Instructions ?Recorded ?Confirmed ?Last Taken ?Type atorvastatin 20 mg tablet 20 mg PO DAILY 05/25/25 05/25/25 Unknown History baclofen 20 mg tablet 20 mg PO BID 05/25/25 05/25/25 Unknown History divalproex 250 mg tablet,delayed 250 mg PO BID 05/25/25 05/25/25 Unknown History release donepezil 10 mg tablet 10 mg PO DAILY 05/25/25 05/25/25 Unknown History famotidine 20 mg tablet 20 mg PO DAILY 05/25/25 05/25/25 Unknown History fluticasone propionate 50 1 - 2 spray intranasal DAILY PRN 05/25/25 05/25/25 Unknown History mcg/actuation nasal Allergy Symptoms spray,suspension furosemide 20 mg tablet 20 mg PO BID 05/25/25 05/25/25 Unknown History ibuprofen 800 mg tablet 800 mg PO TID 05/25/25 05/25/25 Unknown History lisinopril 10 mg tablet 10 mg PO DAILY 05/25/25 05/25/25 Unknown History memantine 10 mg tablet 10 mg PO DAILY 05/25/25 05/25/25 Unknown History sertraline 100 mg tablet 100 mg PO DAILY 05/25/25 05/25/25 Unknown History tamsulosin 0.4 mg capsule 0.4 mg PO DAILY 05/25/25 05/25/25 Unknown History verapamil 80 mg tablet 80 mg PO DAILY 05/25/25 05/25/25 Unknown History Physical Exam Vital Signs: Vital Signs: Last Vital Signs Temp 98.3 F 05/28/25 15:04 Pulse 89 05/28/25 16:12 Resp 17 05/28/25 15:04 BP 126/64 05/28/25 16:12 Pulse Ox 94 05/28/25 16:12 O2 Del Method Room Air 05/28/25 15:04 BMI result Body Mass Index 28.5 Const: General: cooperative HEENT: Head: Yes normal to inspection Face and sinus: Yes normal facial exam Mouth: Normal oral and palatal mucosa present Teeth and gingiva: dentition normal Eyes: General: appearance normal, both eyes and all related structures Pupils: Equal, round and reactive pupils present Resp: Effort & Inspection: normal respiratory effort Cardio: Rate: regular rate Rhythm: regular rhythm GI: Palpation (GI): Soft to palpation and nontender : General: Yes no CVA tenderness Back/Spine/Pelvis: Back: no CVA tenderness Skin: General skin exam: no rashes or lesions noted Neuro: General: moves all extremities Cranial nerves: Yes Equal, round and reactive pupils present Extrem: General: Yes normal to inspection Psych: Other: confused Results Labs 05/27/25 07:07 05/27/25 07:07 Microbiology Microbiology Results: Microbiology 05/25/25 13:28 Cerebrospinal Fluid Gram Stain - Final 05/25/25 13:28 Cerebrospinal Fluid Fluid Description - Final 05/25/25 13:28 Cerebrospinal Fluid CSF Culture - Final No growth after 3 days. 05/25/25 08:32 Blood - Venous Blood Culture - Preliminary No growth after 48 hours. 05/25/25 08:22 Blood - Venous Blood Culture - Preliminary No growth after 48 hours. Assessment and Plan (1) Elevated WBC count: Qualifiers: Leukocytosis type: unspecified Qualified Code(s): D72.829 - Elevated white blood cell count, unspecified Status: Acute (2) Acute encephalopathy: Status: Acute Plan There is no acute infection seen at this time Would stop IV antibiotics and observe.
[2025-05-29 03:19] VITALS: BP 144/75; PULSE 91; RESP 20; TEMP 36.3; O2SAT 96
[2025-05-29 07:15] VITALS: BP 124/71; PULSE 69; RESP 18; TEMP 36.4; O2SAT 98
[2025-05-29] MEDS: 0.9 % Sodium Chloride Flush 3 ML SYRINGE IVFLUSH ×3 (09:10→21:57)
[2025-05-29 10:18] LABS: E. coli EAEC Not Detected (Not Detect.); E. coli EPEC Not Detected (Not Detect.); E. coli ETEC Not Detected (Not Detect.); E. coli STEC Not Detected (Not Detect.); Shigella sp./EIEC Not Detected (Not Detect.)
[2025-05-29 11:46] VITALS: BP 114/62; PULSE 72; RESP 18; TEMP 36.4; O2SAT 97
--- NOTE | 2025-05-29 12:00 | MHC.CM.PN ---
PT EVALUATED PT AND RECOMMEND STR. THIS CM MET WITH PTS DAUGHTER ROMÁN TO DISCUSS DISCHARGE PLANS/STR BED OPTIONS. [facility] IN [place] OFFERED PT A BED, PTS DAUGHTER ROMÁN ACCEPTS THE BED OFFER. ANTICIPATING PT WILL DISCHARGE TO [facility] TOMORROW 05/30 VIA BLS.
--- NOTE | 2025-05-29 14:04 | HO.WOUND ---
Wound Consult: Initial 59yr old? male admitted to [facility] on 05/25/25 - See progress notes and H&P for detailed history.? Wound consult placed for buttock.? Patient agreeable to assessment and photo documentation.? Patient was resistant to moving at times no photo obtained. Patient was positive for norovirus this admission - stools have decrease since admission per direct care team. Buttock Etiology: ??MASD - IAD (Moisture Associated Skin Damage - Incontinent Associated Dermatitis) Wound Bed: generalized red pink blanchable tissue some small scattered open tissue areas consistent with MASD not pressure Drainage / Odor: None noted Edges: ? mirrored Tiffany wound: ?intact No Induration, Fluctuance or Warmth noted Pain: tenderness when assessing Goals of Treatment: ? Continue Triad cream to provide protective barrier and allow for moist wound healing. Recommendations: 1. Turn and Reposition every 2 hours and as needed for patient comfort.? Use pillows or wedges to support off loading positions. 2. Off Load all bony prominences with use of pillows and heel boots if needed.? Apply Preventative foams where needed. ? 3. Monitor for incontinence and moisture control, use barrier creams when needed for prevention and treatment. 4. Provide adequate and supplemental nutrition.? 5. Order low air loss mattress. 6. When applicable maintain blood glucose levels per Providers order. Buttock - Off Load Pressure with Q2 hr turns and use of pillows - Cleanse with PH balance spray or wipes, pat dry. ?Apply thin layer of Triad to wound bed - only pat and dab no scrub and rub when soiling occurs. Reapply thin layer PRN after each episode of incontinence. Re-consult wound care Nurse for wound deterioration or wound changes.
[2025-05-29 15:24] VITALS: BP 129/62; PULSE 75; RESP 18; TEMP 36.7; O2SAT 97
--- NOTE | 2025-05-29 15:52 | P.PNIM_ITS ---
Subjective Subjective Date of Service: 05/29/25 Interval History: encephalopathy Review of Systems seems intermittent awake ,ate also,afterwards seems sleepy Physical Exam 2 Vital Signs: Vital Signs: Last Vital Signs Temp 98.0 F 05/29/25 15:24 Pulse 75 05/29/25 15:24 Resp 18 05/29/25 15:24 BP 129/62 05/29/25 15:24 Pulse Ox 97 05/29/25 15:24 O2 Del Method Room Air 05/29/25 15:24 BMI result Body Mass Index 28.5 Appearance: awake mostly ,but sleepy intermittent,easlily directable. cvs: rrr, [id number] . res: clear to auscultation ,no rhonchii or wheezing abd: no rebound or guarding ,nt, bs present. ext pulses present , no cyanosis . neuro: axo3 , nonfocal. Objective Data Active Medications Acetaminophen (Acetaminophen 325 Mg Tablet) 650 mg PO Q6H PRN PRN Reason: Pain, Mild 1-3,fever,headache Last Admin: 05/28/25 08:11 Dose: 650 mg Documented By: LIVE Atorvastatin Calcium (Atorvastatin Calcium 20 Mg Tablet) 20 mg PO DAILY [facility] Last Admin: 05/29/25 09:14 Dose: 20 mg Documented By: LIVE Baclofen (Baclofen 20 Mg Tablet) 20 mg PO BID [facility] Last Admin: 05/29/25 09:14 Dose: 20 mg Documented By: LIVE Calcium Carbonate (Calcium Carbonate 750 Mg Tab.Chew) 750 mg PO Q4H PRN PRN Reason: Heartburn Diazepam (Diazepam 10 Mg/2 Ml Cartridge) 5 mg IVPUSH Q6H PRN PRN Reason: anxiety/restlessness Last Admin: 05/26/25 21:59 Dose: 5 mg Documented By: KACY Divalproex Sodium (Divalproex Sodium 250 Mg Tablet.Dr) 250 mg PO BID [facility] Last Admin: 05/29/25 09:14 Dose: 250 mg Documented By: LIVE Donepezil HCl (Donepezil Hcl 10 Mg Tablet) 10 mg PO DAILY [facility] Last Admin: 05/29/25 09:16 Dose: 10 mg Documented By: LIVE Famotidine (Famotidine 20 Mg Tablet) 20 mg PO DAILY [facility] Last Admin: 05/29/25 09:14 Dose: 20 mg Documented By: LIVE Fluticasone Propionate (Fluticasone Propionate Nasal 16 Gm [place]) 2 spray NOSTRIL-B DAILY PRN PRN Reason: Allergy Symptoms Furosemide (Furosemide 20 Mg Tablet) 20 mg PO BID [facility]; Protocol Last Admin: 05/29/25 09:14 Dose: 20 mg Documented By: LIVE Doxycycline Hyclate 100 mg/ (Sodium Chloride) 250 mls @ 166.67 mls/hr IV BID [facility] Last Infusion: 05/29/25 10:47 Dose: Infused Documented By: LIVE Ibuprofen (Ibuprofen 800 Mg Tablet) 800 mg PO TID [facility] Last Admin: 05/29/25 09:14 Dose: 800 mg Documented By: LIVE Influenza Virus Vaccine (Flu Vacc [id number](6mo Up)/Pf 0.5 Ml Syringe) 0.5 ml IM .ONCE ONE Stop: 05/30/25 10:42 Lisinopril (Lisinopril 10 Mg Tablet) 10 mg PO DAILY [facility]; Protocol Last Admin: 05/29/25 09:13 Dose: 10 mg Documented By: LIVE Melatonin (Melatonin 3 Mg Tablet) 6 mg PO BEDTIME PRN PRN Reason: Insomnia Memantine (Memantine Hcl 10 Mg Tablet) 10 mg PO DAILY [facility] Last Admin: 05/29/25 09:13 Dose: 10 mg Documented By: LIVE Morphine Sulfate (Morphine Sulfate 2 Mg/Ml Cartridge) 1 mg IVPUSH Q4H PRN; Protocol PRN Reason: Pain, Severe (Pain Scale 7-10) Ondansetron HCl (Ondansetron Hcl 4 Mg/2 Ml Vial) 4 mg IVPUSH Q6H PRN PRN Reason: Nausea and Vomiting Last Admin: 05/26/25 03:45 Dose: 4 mg Documented By: KACY Sertraline HCl (Sertraline Hcl 100 Mg Tablet) 100 mg PO DAILY [facility] Last Admin: 05/29/25 09:13 Dose: 100 mg Documented By: LIEV Sodium Chloride (0.9 % Sodium Chloride Flush 3 Ml Syringe) [facility] Last Admin: 05/29/25 09:10 Dose: 3 ml Documented By: LIVE Tamsulosin HCl (Tamsulosin Hcl 0.4 Mg Capsule) 0.4 mg PO DAILY [facility] Last Admin: 05/29/25 09:14 Dose: 0.4 mg Documented By: LIVE Verapamil HCl (Verapamil Hcl 80 Mg Tablet) 80 mg PO DAILY [facility]; Protocol Last Admin: 05/29/25 09:14 Dose: 80 mg Documented By: LIVE Labs 05/27/25 07:07 05/29/25 16:23 Labs: Laboratory Results - last 24 hr 05/29/25 04:00 Stl C. cayetanensis PCR Not Detected Stool Rotavirus A PCR Not Detected Stl Adenov F 40/41 PCR Not Detected Stool Astrovirus (PCR) Not Detected Stool Campylobacter PCR Not Detected Stool Cryptosporidium PCR Not Detected Stl Sh Tox Pr E STEC PCR Not Detected Stool E coli O157 PCR Not applicable Stl Enterotoxigenic E PCR Not Detected Stool EPEC (PCR) Not Detected Stool EAEC (PCR) Not Detected Stl E. histolytica PCR Not Detected Stool Giardia Lamblia PCR Not Detected Stl P. shigelloides PCR Not Detected Stool Salmonella PCR Not Detected Stool Sapovirus (PCR) Not Detected Stl Shigella/EIEC PCR Not Detected St Y.enterocolitica PCR Not Detected Stool Vibrio (PCR) Not Detected Stl Vibrio cholerae PCR Not Detected Stl Norovirus GI/GII PCR Not Detected Assessment and Plan (1) Norovirus: Status: Acute Plan 59-year-old male with history of Parkinson's disease, history of stroke, BPH, hyperlipidemia, hypertension, mood disorder, who moved to the [facility] from [place] 3 weeks ago and presented to the emergency department due to 2- 3 days of increased confusion found to have fever and tested positive for norovirus Acute toxic metabolic encephalopathy On a background of Parkinson's disease and probable vascular UA, CXR, RPP, AP CT and brain CT negative for acute infection likley due to norovirus LP:only 1 wbc , protein 56 rule out meningitis/encephalitis-negative csf lyme test pending, csf culture negative . Treponema pallidum(eia): Nonreactive. Hiv1&2 :Nonreactive. blood cultures -neg@24hrs eeg done pending bedside swallow patient passed -started diet,ate also today,but seems sleppy will check bmp ,vbg ,hold baclofen neurology followup Norovirus Supportive care stop fluids(on lasix at baseline, unclear EF) Thrombocytopenia No baseline for comparison Trend CBC HTN bp borderline hold baseline meds lisinopril, lasix, verapamil. mood continue baseline meds when able to safely take po . h/o CVA continue statin when able to take po Parkinson's disease/dementia does not appear to be on sinemet on baclofen, donepezil and memantine - resume when able to take po . Generlaised weak: Pt eval pending DVT prophylaxis-mechanical devices . Code status-full code. ongoing need for stay:need neurology followup, feels very drowy/sleepy -labs added ,hold seative meds -needs close monitering with neurchecks and neurology f/u. addam: This afternoon seems much better, seen by Neurology again today.:His EEG revealed generalized slowing with no evidence of seizure disorder. Laboratories did not reveal any obvious infection that could explain his encephalopathy. Likely diagnosis is multifactorial [id number] dementia, which is conservatively treated without availability of any specific medicines. Quality Stroke Does the patient have a stroke diagnosis?: No VTE Prior VTE?: No VTE Risk Level:: Medical - moderate - high VTE Device Contraindication: N/A - Device Ordered VTE Drug Contraindication: Treatment Not Indicated
[2025-05-29 17:04] LABS: Venous Blood Gas Refer to POC result
[2025-05-29 17:04] LABS: VBG HCO3 23 mmol/L (22-26); VBG O2 % Saturation 86.0 %
[2025-05-29 17:17] LABS: Anion Gap 15 (12-20); Blood Urea Nitrogen 15 mg/dL (9-16); Calcium 8.8 mg/dL (8.4-10.2); Carbon Dioxide 19 mmol/L (22-29); Chloride 109 mmol/L (96-108); Creatinine Clr Calc Pharmacy 94.5; Estimated Glomerular Filt Rate > 60; Potassium 4.3 mmol/L (3.3-5.1); Sodium 139 mmol/L (135-145)
[2025-05-29 19:50] VITALS: BP 121/61; PULSE 95; RESP 16; TEMP 36.9; O2SAT 97
[2025-05-29 23:56] VITALS: BP 111/56; PULSE 87; RESP 16; TEMP 36.9; O2SAT 100
[2025-05-30 03:32] VITALS: BP 118/64; PULSE 89; RESP 18; TEMP 37.2; O2SAT 98
[2025-05-30 08:00] VITALS: BP 143/76; PULSE 91; RESP 20; TEMP 36.7; O2SAT 98
--- NOTE | 2025-05-30 10:42 | P.DS_ITS ---
DS: Providers Provider Date of Service: 05/30/25 Date of admission: 05/25/25 13:40 Date of discharge: 05/30/25 Primary care physician: Doc Sarmiento MD Consults: 05/26/25 07:59 Consult to Infectious Diseases Routine Consulting Provider: [facility] Reason for consultation: encephalopathy-? meningitis vs encephalitis Has provider been notified: No 05/26/25 08:02 Consult to Neurology Routine Consulting Provider: [facility] Reason for consultation: acute encepahlopathy Has provider been notified: No 05/29/25 01:56 Consult to Wound Care Routine Reason for consultation: blanchable redness to buttocks DS: Diagnosis Discharge Diagnosis (1) Norovirus: Status: Acute DS: Summary Hospital Course Hospital Course: from initial hpi: 59-year-old male who was brought to the emergency department by his daughter due to confusion. History was obtained from his daughter at the bedside as the patient is unable to provide any significant history. She moved him here from [place] 3 weeks ago because he had no one to take care of him. Patient has a history of Parkinson's disease, stroke and memory impairment. He is confused at baseline but over the past 2-3 days he has had increasing confusion, weakness, decreased oral intake and change in behavior. Today in the emergency department he was febrile with a temperature of 101.3 degrees. Initial workup including brain CT, abdominal pelvic CT, chest x-ray, UA and full respiratory pathogen panel were all negative. Patient underwent lumbar puncture and was empirically treated for possible meningitis. He then had multiple episodes of loose stools and a GI panel was sent returning positive for norovirus. Patient's daughter denies any recent reports of abdominal pain, nausea, vomiting. No reported sick contacts. Lab work significant for leukocytosis of 16,000 and was otherwise unremarkable. Patient received 2 mg of IV Versed prior to lumbar puncture and on physical exam patient is difficult to arouse, unable to provide any history, not answering any questions. hospital course: Patient was admitted for acute toxic metabolic encephalopathy discharge diagnosis is progression of moderate to severe multifactorial dementia including Parkinson's dementia and vascular. Low-grade fever likely due to norovirus which has resolved. Patient was ruled out for meningitis and encephalitis, RPR negative, HIV negative, blood cultures negative, EEG showed generalized slowing no seizure, was seen by physical therapy recommended short-term rehab to which patient will be discharged he is expected require less than 30 days. For hypertension should continue on lisinopril, Lasix, verapamil, for history of CVA was continued on statin. Baclofen should be slowly weaned has been decreased to 10 mg t.i.d.. Time Attestation Discharge Coordination Time (in mins): 32 Quality: Safe Use of Opioids Does Pt have an Active Cancer Diagnosis on the Problem List?: No Quality: Stroke Does the patient have a stroke diagnosis?: No Physical Exam Vital Signs: Vital Signs: Last Vital Signs Temp 98.1 F 05/30/25 08:00 Pulse 91 05/30/25 08:00 Resp 20 05/30/25 08:00 BP 143/76 H 05/30/25 08:00 Pulse Ox 98 05/30/25 08:00 O2 Del Method Room Air 05/30/25 08:00 BMI result Body Mass Index 28.5 Appearance: awake mostly ,but sleepy intermittent,easlily directable. cvs: rrr, [id number] . res: clear to auscultation ,no rhonchii or wheezing abd: no rebound or guarding ,nt, bs present. ext pulses present , no cyanosis . neuro: axo3 , nonfocal. DS: Data Data Completed and Pending Labs on day of discharge: Laboratory Results - last 24 hr 05/26/25 05/29/25 05/29/25 13:34 16:23 16:58 VBG pH 7.38 VBG pCO2 40 VBG pO2 59 VBG HCO3 23 VBG O2 Saturation 86.0 VBG Base Excess -1.0 Sodium 139 Potassium 4.3 D Chloride 109 H Carbon Dioxide 19 L Anion Gap 15 BUN 15 Creatinine 0.91 Estim Creat Clear Calc 94.5 Estimated GFR > 60 Random Glucose 127 H Calcium 8.8 Fld Lyme DNA (PCR) Lyme Disease DNA (PCR) NOT DETECTED Discharge Plan Discharge Anticipated Discharge Date/Time: 05/30/25 10:38 Patient Disposition: Xfer SNF Discharge Diagnosis: dementia, norovirus Referrals: [facility] [Outside] - 1 Week Name,MD Doc [Primary Care Provider, Internal Medicine] - 1 Week Discharge Medications: New baclofen 10 mg tablet 10 mg PO TID Qty: 90 0RF Continued atorvastatin 20 mg Tablet 20 mg PO DAILY divalproex 250 mg Tablet,Delayed Release (Dr/Ec) 250 mg PO BID donepezil 10 mg Tablet 10 mg PO DAILY sertraline 100 mg Tablet 100 mg PO DAILY famotidine 20 mg Tablet 20 mg PO DAILY tamsulosin 0.4 mg Capsule 0.4 mg PO DAILY lisinopril 10 mg Tablet 10 mg PO DAILY furosemide 20 mg Tablet 20 mg PO BID verapamil 80 mg Tablet 80 mg PO DAILY fluticasone propionate 50 mcg/actuation [place],Suspension 1 - 2 spray INTRANASAL DAILY PRN (Reason: Allergy Symptoms) Rx Instructions: administer into each nostril memantine 10 mg Tablet 10 mg PO DAILY Discontinued baclofen 20 mg Tablet 20 mg PO BID ibuprofen 800 mg Tablet 800 mg PO TID Discharge Orders: Discharge Order (Routine); Ordered 05/30/25 Ordered By: Juice Skinner Diet: Advance to usual diet Activity on Discharge: As tolerated Stand Alone Forms: Patient Portal Discharge page Print Language: Bulgarian Care Plan Goals: recovery Health Concerns: dementia Plan of Treatment: taper off baclofen, stop ibuprofen, PT Assessment: see above
--- NOTE | 2025-05-30 10:50 | MHC.CM.PN ---
Addendum entered by Omayra Corral 05/30/25 11:33: COPY OF HCP PROVIDED BY PTS DAUGHTER, NOW ON FILE. Original Note: PT IS MEDICALLY CLEARED FOR DISCHARGE TO [facility] [place] TODAY, HE WILL TRANSPORT THERE VIA BLS/BLAIR. THIS CM MET WITH PTS DAUGHTER ROMÁN WITH A LICENSED LOAN OFFICER ASSISTANT TO DISCUSS DISCHARGE PLAN, SHE IS AN AGREEMENT WITH THE PLAN. SECOND IMM GIVEN 05/30.
[2025-05-30 11:54] VITALS: BP 126/72; PULSE 102; RESP 18; TEMP 36.6; O2SAT 94
--- NOTE | 2025-05-30 13:19 | MHC.SLORD ---
Speech Language Pathology Order Status: Pt not seen by COMMERCIAL LOAN REVIEWER 05/30.
== END 2025-05-30 14:56 | disposition skilled nursing facility (03) | DRG 391 ==
LOC: HO.ED 13:45 → HO.EDOVER 13:46 → HO.IMC 05-26 00:05
PROVIDERS: Emergency Medicine; Internal Medicine; Nurse Practitioner Family; Admitting Provider Physician Assistant Medical; Emergency Provider Emergency Medicine; PCP Internal Medicine Geriatric Medicine; Visit Provider Internal Medicine
DX: A08.11 Acute gastroenteropathy due to Norwalk agent (principal); G92.8 Other toxic encephalopathy; D69.6 Thrombocytopenia, unspecified; I10 Essential (primary) hypertension; F39 Unspecified mood [affective] disorder; F02.C0 Dementia in other diseases classified elsewhere, severe, without behavioral disturbance, psychotic disturbance, mood disturbance, and anxiety; F01.C0 Vascular dementia, severe, without behavioral disturbance, psychotic disturbance, mood disturbance, and anxiety; G20.A1 Parkinson's disease without dyskinesia, without mention of fluctuations; Z20.822 Contact with and (suspected) exposure to COVID-19; Z79.899 Other long term (current) drug therapy
CPT/HCPCS: 36415; 70450; 71045; 73030; 73060; 74177; 80048; 80076; 80164; 80202; 81001; 82140; 82803; 82945; 83605; 83690; 83735; 84157; 84484; 85025; 85027; 86140; 86780; 87015; 87040; 87070; 87205; 87389; 87476; 87483; 87493; 87507; 87633; 87637; 89051; 92610; 93005; 95816; 97163; 99285; J0131; J0133; J0696; J1100; J1271; J1885; J2003; J2250; J2405; J3360; J3373; J3374; J7120; Q9967

== ENCOUNTER → 2025-05-25 07:54 | Outpatient (BNV) | payer MEDICARE, SELFPAY | PROVIDERS: Admitting Provider Physician Assistant Medical; Emergency Provider Emergency Medicine; PCP Internal Medicine Geriatric Medicine; Visit Provider Internal Medicine | DX: R41.82 Altered mental status, unspecified (principal) | CPT/HCPCS: 93010 ==

== ENCOUNTER → 2025-05-25 08:00 | Outpatient (BNV) | payer MEDICARE, SELFPAY | PROVIDERS: Emergency Provider Emergency Medicine; PCP Internal Medicine Geriatric Medicine; Visit Provider Radiology Diagnostic Radiology | DX: K57.30 Diverticulosis of large intestine without perforation or abscess without bleeding (principal); R41.82 Altered mental status, unspecified; R50.9 Fever, unspecified | CPT/HCPCS: 70450; 71045; 74177 ==

== ENCOUNTER 2025-05-25 13:40 | Outpatient (BNV) | payer MEDICARE, MEDICAID, SELFPAY | END 2025-05-26 08:15 | PROVIDERS: Admitting Provider Physician Assistant Medical; Emergency Provider Emergency Medicine; PCP Internal Medicine Geriatric Medicine; Visit Provider Psychiatry & Neurology Neurology | DX: G93.40 Encephalopathy, unspecified (principal) | CPT/HCPCS: 95816 ==

== ENCOUNTER 2025-05-25 13:40 | Outpatient (BNV) | payer MEDICARE, MEDICAID, SELFPAY | END 2025-05-28 18:30 | PROVIDERS: Admitting Provider Physician Assistant Medical; Emergency Provider Emergency Medicine; PCP Internal Medicine Geriatric Medicine; Visit Provider Radiology Diagnostic Radiology | DX: M19.011 Primary osteoarthritis, right shoulder (principal); M79.601 Pain in right arm | CPT/HCPCS: 73030; 73060 ==

== ENCOUNTER → 2025-05-25 13:40 | Outpatient (BNV) | payer MEDICARE, MEDICAID, SELFPAY | PROVIDERS: Admitting Provider Physician Assistant Medical; Emergency Provider Emergency Medicine; PCP Internal Medicine Geriatric Medicine; Visit Provider Internal Medicine | DX: D72.829 Elevated white blood cell count, unspecified (principal); G93.40 Encephalopathy, unspecified | CPT/HCPCS: 99222 ==

== ENCOUNTER → 2025-05-25 13:40 | Outpatient (BNV) | payer MEDICARE, SELFPAY | PROVIDERS: Admitting Provider Physician Assistant Medical; Emergency Provider Emergency Medicine; PCP Internal Medicine Geriatric Medicine; Visit Provider Physician Assistant Medical | DX: A08.11 Acute gastroenteropathy due to Norwalk agent (principal) | CPT/HCPCS: 99223; 99231; 99239 ==

== ENCOUNTER → 2025-05-25 13:40 | Outpatient (BNV) | payer MEDICARE, SELFPAY | PROVIDERS: Admitting Provider Physician Assistant Medical; Emergency Provider Emergency Medicine; PCP Internal Medicine Geriatric Medicine; Visit Provider Psychiatry & Neurology Neurology | DX: F03.90 Unspecified dementia, unspecified severity, without behavioral disturbance, psychotic disturbance, mood disturbance, and anxiety (principal) | CPT/HCPCS: 99223 ==

== ENCOUNTER 2025-06-02 12:35 | Emergency (ER) | payer MEDICARE, MEDICAID, SELFPAY ==
--- NOTE | ~2025-06-02 | CT_ITS ---
CLINICAL HISTORY: Mental status change CT head without contrast Comparison: CT/SR - CT HEAD WITHOUT IV CONTRAST - 05/25/25 11:12 EDT Findings: No intra-axial mass, midline shift, hydrocephalus, or acute hemorrhage. Age appropriate cerebral volume loss. Patchy low-density within the periventricular and subcortical white matter. Small chronic right frontotemporal lobe infarct. There is no sinus or mastoid fluid. The orbits are unremarkable. No skull fracture. IMPRESSION: 1. No acute intracranial findings. This document has been electronically signed by: Marcelino Lewis MD on 06/02/2025 16:31:37
--- NOTE | ~2025-06-02 | XR_ITS ---
CLINICAL HISTORY: Mental status change 1 view chest x-ray Comparison: None provided Findings: No consolidation or effusion. Normal size heart. No acute fracture. IMPRESSION: No acute findings. This document has been electronically signed by: Marcelino Lewis MD on 06/02/2025 14:59:40
[2025-06-02] MEDS: OLANZapine 10 MG VIAL IM (12:50)
[2025-06-02 12:52] VITALS: BP 112/70; PULSE 160; RESP 18; O2SAT 95; BMI 23.4
--- NOTE | 2025-06-02 12:53 | ECG_ITS ---
Test Reason : TACHY Blood Pressure : */* mmHG Vent. Rate : 88 BPM Atrial Rate : 88 BPM P-R Int : 160 ms QRS Dur : 104 ms QT Int : 368 ms P-R-T Axes : 77 30 69 degrees QTcB Int : 445 ms Normal sinus rhythm with sinus arrhythmia Nonspecific T wave abnormality Abnormal ECG When compared with ECG of 25-May-2025 07:54, No significant change was found Referred By: Serjio Fish Electronically Signed By: SHERRY GUEVARA MD
[2025-06-02 12:55] VITALS: PULSE 160; RESP 26
--- NOTE | 2025-06-02 12:56 | ED.AMS ---
HPI - Altered Mental Status General Chief Complaint: Behavioral Concerns Stated Complaint: AMS FTT Time Seen by Provider: 06/02/25 12:49 Source: patient, EMS and old records reviewed Mode of arrival: EMS Limitations: altered mental status History of Present Illness ED Provider: DR. Fish HPI narrative: This is a 59-year-old male who was brought in from [facility] for change mental status and becoming combative and spitting on staff, patient is non historian due to agitation and confusion, patient had a recent hospitalization for confusion and was discharged to [facility] with the staff cm today for further evaluation of change mental status and becoming combative. Patient just moved recently from [place] with history of Parkinson disease, stroke, memory impairment, patient is confused at baseline but over the past week confusion is becoming more significant, patient had recent hospitalization for acute toxic metabolic encephalopathy had a full workup including Lp, brain CT and other workup which was unremarkable. Related Data Home Medications ?Medication ?Instructions ?Recorded ?Confirmed atorvastatin 20 mg tablet 20 mg PO DAILY 05/25/25 06/03/25 divalproex 250 mg tablet,delayed 250 mg PO BID 05/25/25 06/03/25 release donepezil 10 mg tablet 10 mg PO DAILY 05/25/25 06/03/25 famotidine 20 mg tablet 20 mg PO DAILY 05/25/25 06/03/25 fluticasone propionate 50 1 - 2 spray intranasal DAILY PRN 05/25/25 06/03/25 mcg/actuation nasal Allergy Symptoms spray,suspension furosemide 20 mg tablet 20 mg PO BID 05/25/25 06/03/25 lisinopril 10 mg tablet 10 mg PO DAILY 05/25/25 06/03/25 memantine 10 mg tablet 10 mg PO DAILY 05/25/25 06/03/25 sertraline 100 mg tablet 100 mg PO DAILY 05/25/25 06/03/25 tamsulosin 0.4 mg capsule 0.4 mg PO DAILY 05/25/25 06/03/25 verapamil 80 mg tablet 80 mg PO DAILY 05/25/25 06/03/25 baclofen 10 mg tablet 20 mg PO BID 06/03/25 06/03/25 Allergies Allergy/AdvReac Type Severity Reaction Status Date / Time No Known Allergies Allergy Verified 06/02/25 12:55 Review of Systems Review of Systems: All other systems are reviewed and are negative Constitutional: Reports as per HPI and Reports no additional constitutional complaints Eyes: Reports as per HPI and Reports no additional eye complaints Reports system reviewed and no additional complaints, except as documented Cardiovascular: Reports as per HPI and Reports no additional cardiovascular complaints Respiratory: Reports as per HPI and Reports no additional respiratory complaints Gastrointestinal: Reports as per HPI and Reports no additional gastrointestinal complaints Genitourinary: Reports no additional female genitourinary complaints Musculoskeletal: Reports no additional musculoskeletal complaints Skin/Breast: Reports system reviewed and no additional complaints, except as docu Psychiatric: Reports no additional psychiatric complaints Endocrine: Reports no additional endocrine complaints Hematologic/Lymphatic: Reports no additional hematologic/lymphatic complaints Allergic/Immunologic: Reports no additional allergic/immunologic complaints Reports system reviewed and no additional complaints, except as documented and Reports Abnormal speech present [facility] Past Medical History Medical History BPH (benign prostatic hyperplasia) HTN (hypertension) Parkinson disease Stroke Social History Social History Household Members: Children Housing: Unknown / Unable to assess Do you presently have visiting nurse or other home services: No Alcohol intake: never Patient Tobacco Use Status: Never used Tobacco service: No Physical Exam ED Vital Signs: Vital Signs - 24 hr 06/03/25 00:53 06/03/25 04:21 06/03/25 06:06 Temperature 97.9 F Pulse Rate 62 66 78 Respiratory Rate 16 16 18 Blood Pressure 112/55 L 145/67 H 107/61 Pulse Oximetry 98 99 98 Oxygen Delivery Method Room Air Room Air Room Air Oxygen Flow Rate 06/03/25 08:43 06/03/25 08:43 06/03/25 08:45 Temperature Pulse Rate 83 Respiratory Rate 15 Blood Pressure 107/61 107/61 123/65 Pulse Oximetry 95 Oxygen Delivery Method Nasal Cannula Oxygen Flow Rate 1 06/03/25 10:50 06/03/25 11:21 Temperature 98.3 F 98.3 F Pulse Rate 102 H 102 H Respiratory Rate 13 13 Blood Pressure 113/70 113/70 Pulse Oximetry 97 97 Oxygen Delivery Method Room Air Room Air Oxygen Flow Rate BMI result Body Mass Index 23.4 Vital signs have been reviewed and appear to be correct. Blood pressure elevated. Heart rate elevated. Respiratory rate normal. Temperature normal. Oxygen saturation normal. Appearance: Alert. Disoriented, confused. No acute distress. Head: Normal external exam. Normocephalic. Atraumatic. No Salguero signs noted. No raccoon eyes noted Eyes: PERRLA. EOMI. Conjunctiva and sclera normal. Eyelids normal. ENT: TM's Normal. Pharynx normal. Uvula midline. Moist mucous membranes. No trismus noted. No drooling noted. No muffled voice noted. Neck: Normal inspection. Neck supple. FROM. No adenopathy. Thyroid Normal. No meningeal signs. No neck mass noted. CVS: Normal heart rate and rhythm. Heart sound normal. No murmurs noted. Pulses normal throughout. Respiratory: No respiratory distress. Painless inspiration. Breath sounds normal. No wheezes/rales/rhonchi noted. Chest nontender. No accessory muscle usage noted or decreased air movement noted. Abdomen: Soft and nontender. Bowel sounds normal in all 4 quadrants. No distention noted. No organomegaly noted. No visible injury noted. Back: No CVA tenderness. Full range of motion noted. Skin: Skin warm and dry. Normal skin color. Normal skin turgor. No rashes/lesions/lacerations noted. Extremities: No lower extremity edema. Extremities exhibit normal range of motion. Extremities nontender. Neuro: Disoriented, confused. Cranial nerve exam: II-XII are grossly intact No motor deficit. No sensory deficit. Reflexes normal. Course Reevaluation(s) Reevaluation #1: Period of agitation and belligerent at the senior care, controlled will will Zyprexa IM in the ED, vital sign is normalizing, negative workup for medical clearance, patient is medically cleared now awaiting for care team further evaluation, will start physician observation. Patient needed IV access in the right basilic vein using ultrasound guided done by . Time: 16:23 Reevaluation #2: 9:04 AM 06/03/2025 (Dr. Matias Driscoll): I spoke to a psychiatrist who recommended if patient is to be discharged to increase his Depakote to her 250 mg 3 times a day, and risperidone 1 mg 3 times a day, 06/03/25 1900 EDWARD Aviles: Received results from lab of preliminary blood culture results. 1/2 cultures positive for Gram-positive cocci in clusters; MRSA and Staph aureus negative. Results faxed to [facility]. Medications Administered Discontinued Medications Generic Name Dose Route Start Last Admin Trade Name Nikole PRN Reason Stop Dose Admin Atorvastatin Calcium 20 mg 06/03/25 09:00 06/03/25 08:43 Atorvastatin Calcium 20 Mg Tablet PO 20 mg DAILY RUBEN Administration Baclofen 20 mg 06/03/25 09:00 06/03/25 08:43 Baclofen 20 Mg Tablet PO 20 mg BID RUBEN Administration Divalproex Sodium 250 mg 06/03/25 09:00 06/03/25 08:43 Divalproex Sodium 250 Mg Tablet.Dr PO 250 mg BID RUBEN Administration Donepezil HCl 10 mg 06/03/25 09:00 06/03/25 11:05 Donepezil Hcl 10 Mg Tablet PO Not Given DAILY RUBEN Famotidine 20 mg 06/03/25 09:00 06/03/25 08:43 Famotidine 20 Mg Tablet PO 20 mg DAILY RUBEN Administration Furosemide 20 mg 06/03/25 09:00 06/03/25 08:43 Furosemide 20 Mg Tablet PO 20 mg BID RUBEN Administration Protocol Sodium Chloride 1,000 mls @ 999 mls/hr 06/02/25 12:52 06/02/25 17:50 Ns IV 06/02/25 13:52 Infused .Q1H1M ONE Infusion Lisinopril 10 mg 06/03/25 09:00 06/03/25 08:43 Lisinopril 10 Mg Tablet PO 10 mg DAILY RUBEN Administration Protocol Memantine 10 mg 06/03/25 09:00 06/03/25 08:43 Memantine Hcl 10 Mg Tablet PO 10 mg DAILY RUBEN Administration Olanzapine 10 mg 06/02/25 12:50 06/02/25 12:50 Olanzapine 10 Mg Vial IM 06/02/25 12:51 10 mg ONCE ONE Administration Sertraline HCl 100 mg 06/03/25 09:00 06/03/25 11:05 Sertraline Hcl 100 Mg Tablet PO Not Given DAILY RUBEN Tamsulosin HCl 0.4 mg 06/03/25 09:00 06/03/25 08:43 Tamsulosin Hcl 0.4 Mg Capsule PO 0.4 mg DAILY RUBEN Administration Verapamil HCl 80 mg 06/03/25 09:00 06/03/25 11:06 Verapamil Hcl 80 Mg Tablet PO Not Given DAILY RUBEN Protocol Medical Decision Making Differential Diagnosis Differential Diagnoses: The differential diagnosis associated with the presentation includes (Dementia, acute psychosis, electrolyte derangement, severe anemia, medical clearance, intracranial bleed.) Admission/Observation Consideration of admission/observation: Escalation of care including admission/observation considered Lab Data MDM Lab Attestation statement: I reviewed the patient's lab results. 06/02/25 13:47 06/02/25 13:47 Labs: Lab Results 06/02/25 06/02/25 06/02/25 Range/Units 13:47 14:52 18:15 WBC 10.7 (4.8-10.8) X10*3/uL RBC 5.03 D (4.60-5.80) X10*6/uL Hgb 15.5 D (14.0-18.0) g/dl Hct 45.3 D (42.0-52.0) % MCV 90.1 (80.0-98.0) fL MCH 30.8 (27.0-33.0) pg MCHC 34.2 (31.0-36.0) g/dl RDW 12.6 (11.0-16.0) % Plt Count 184 D (160-400) X10*3/uL MPV 11.7 (9.4-12.4) fL Immature Gran % (Auto) 0.7 H (0.0-0.4) % Neut % (Auto) 74.4 H (45-73) % Lymph % (Auto) 11.2 L (20-40) % [place] % (Auto) 12.0 H (2-11) % Eos % (Auto) 1.2 (0-4) % Baso % (Auto) 0.5 (0-2) % Lymph # (Auto) 1.2 (1.2-4.9) X10*3/uL [place] # (Auto) 1.3 H (0.1-1.2) X10*3/uL Eos # (Auto) 0.1 (0.0-0.4) X10*3/uL Baso # (Auto) 0.1 (0.0-0.2) X10*3/uL Abs Immat Gran (auto) 0.07 H (0.00-0.03) X10*3/uL Absolute Neuts (auto) 8.0 (2.0-8.3) x10*3/uL Absolute Nucleated RBC 0.020 H (0.0-0.012) X10*3/uL Nucleated RBC % (auto) 0.2 (0.0-0.2) /100WBC PT 11.8 (10.9-12.4) SEC INR 1.0 (0.9-1.1) Sodium 137 (135-145) mmol/L Potassium 4.0 (3.3-5.1) mmol/L Chloride 103 (96-108) mmol/L Carbon Dioxide 21 L (22-29) mmol/L Anion Gap 17 (12-20) BUN 18 H (9-16) mg/dL Creatinine 0.95 (0.5-1.4) mg/dL Estim Creat Clear Calc 74.6 Estimated GFR > 60 Random Glucose 115 (60-115) mg/dL Lactic Acid 2.1 H* (0.5-2.0) mmol/L Lactic Acid F/U @ 2Hr 1.2 (0.5-2.0) mmol/L Calcium 9.2 (8.4-10.2) mg/dL Total Bilirubin 0.4 (0.0-1.0) mg/dL Direct Bilirubin 0.1 (0.0-0.5) mg/dL AST 33 (5-37) U/L ALT 18 (0-40) U/L Alkaline Phosphatase 74 (39-117) U/L Ammonia 34 (13-55) umol/L Troponin I High Sens < 2.7 (<3.5-35.0) ng/L Total Protein 7.9 (6.5-8.0) g/dL Albumin 4.3 (3.5-5.0) g/dL Lipase 42 (8-78) U/L Urine Color Yellow Urine Appearance Clear Urine pH 5.0 (5.0-9.0) Ur Specific [place] 1.015 (1.005-1.025) Urine Protein Negative (Neg-Trace) mg/dL Urine Glucose (UA) Negative (Negative) mg/dL Urine Ketones Negative (Negative) mg/dL Urine Blood Moderate (2+) H (Negative) Urine Nitrite Negative (Negative) Ur Leukocyte Esterase Negative (Negative) Urine RBC >20 H (0-2) /HPF Urine WBC 0-5 (0-5) /HPF Ur Squamous Epith Cells 0-2 (0-2) /HPF Urine Bacteria None Seen (None Seen) Hyaline Casts 3-5 (0-2) /LPF Urine Opiates Screen Not Detected (Not Detect) Ur Buprenorphine Scrn Not Detected (Not Detect) ng/mL Ur Oxycodone Screen Not Detected (Not Detect) ng/mL Urine Methadone Screen Not Detected (Not Detect) ng/mL Urine Fentanyl Screen Not Detected (Not Detect) Ur Barbiturates Screen Not Detected (Not Detect) Ur Phencyclidine Scrn Not Detected (Not Detect) Ur Amphetamines Screen Not Detected (Not Detect) U Benzodiazepines Scrn POSITIVE H (Not Detect) Urine Cocaine Screen Not Detected (Not Detect) U Marijuana (THC) Screen Not Detected (Not Detect) Independent Interpretation I performed an independent interpretation of an: Plain X-Ray (Chest: No acute findings) and CT Scan (Head CT: No acute intra cranial pathology.) Radiology Impression Discussion of test interpretation with radiology: I have reviewed the radiologist's reading. Critical Care Time Critical Care Time Critical Care Time: Yes Total Critical Care Time: 60 Attestation: The patient was critically ill with a high probability of imminent or life-threatening deterioration. I spent greater than 30 minutes of discontinuous time evaluating the patient, delivering critical care at the bedside, discussing evaluating data with consultants. Critical care time does not include time spent performing separately billable procedures or teaching. Time spent performing critical care was 60 minutes. Discharge Plan Discharge Clinical Impression: Altered mental status Patient Disposition: er [facility] Transfer Details: [place] Additional Instructions: Evaluated in the emergency department, Depakote we will be 250 mg 3 times a day and And risperidone 1 mg 3 times a day, evaluate by psychiatrist who recommended those medication changes The rest of the workup here has been reassuring Prescriptions: No Action baclofen 10 mg tablet 20 mg PO BID atorvastatin 20 mg Tablet 20 mg PO DAILY divalproex 250 mg Tablet,Delayed Release (Dr/Ec) 250 mg PO BID donepezil 10 mg Tablet 10 mg PO DAILY sertraline 100 mg Tablet 100 mg PO DAILY famotidine 20 mg Tablet 20 mg PO DAILY tamsulosin 0.4 mg Capsule 0.4 mg PO DAILY lisinopril 10 mg Tablet 10 mg PO DAILY furosemide 20 mg Tablet 20 mg PO BID verapamil 80 mg Tablet 80 mg PO DAILY fluticasone propionate 50 mcg/actuation [place],Suspension 1 - 2 spray INTRANASAL DAILY PRN (Reason: Allergy Symptoms) Rx Instructions: administer into each nostril memantine 10 mg Tablet 10 mg PO DAILY Interventions: ED Discharge Assessment Last Done: 06/03/25 11:21 Discharge Date/Time: 06/03/25 11:22 Print Language: Sudanese
--- OUTSIDE RECORDS SUMMARY | 2025-06-02 13:12 | XMS_ITS | Clinical Summary ---
Author Organization [employer] Address [address] [facility] [address] [place] [address] Care Team Providers Care Speech Clinician Name Role Phone Unavailable Primary Care Provider Unavailabl e Encounters Date Type Department Care Team Description 05/25/2025 Orders Only [facility] External Provider, [facility] from Last 3 Months Social History Tobacco Use Types Packs/Day Years [...] Description 2025 10:45 AM EST Office Visit [facility] [address] [place] [address] Name, MD Doc [address] [place] [address] Health Maintenance Due Date Last Done Comments [...] Vaccines (1 of 2) 2014 COVID-19 Vaccine (2023-2 5 season) 2025 Influenza Vaccine (#1) 2025 [...] on patient's age to complete this topic Procedures Procedure Name Priority Date/Time Associated Diagnosis Comments XR SHOULDER 2+ VIEWS RIGHT Routine 05/28/2025 7:19 PM EDT XR HUMERUS RIGHT Routine 05/28/2025 7:18 PM EDT CDIFF GENE PCR Routine 05/25/2025 11:16 AM EDT GASTROINTESTINAL PANEL Routine 11:[address] HEAD WO CONTRAST Routine 05/25/2025 1 1:12 AM EDT RESPIRATORY VIRAL PANEL PCR Routine 05/25/2025 10:[address] ABDOMEN PELVIS W CONTRAST Routine 05/25/2025 9:25 AM EDT URINALYSIS, COMPLETE, WITH REFLEX TO CULTURE Routine 05/25/2025 8:49 AM EDT XR CHEST 1 VIEW Routine 05/25/2025 8:01 AM EDT from Last 3 Months Results * XR Shoulder 2+ Views Right (05/28/2025 7:19 PM EDT) Anatomical Region Laterality Modality Upper Extremities, Shoulder Right Radi ographic Imaging 05/28/2025 7:19 PM EDT Narrative 05/28/2025 7:22 PM EDT [address] [address] XRay Report Signed Patient: Lc Velásquez MR#: [id number] : 1965 Acct:[id number] Age/Sex: 59 / M ADM Date: 05/25/25 Loc: [facility] 444-[address]: Valery Luna MD Ordering Physician: Valery Luna MD Date of Service: 05/28/25 Procedure(s): XR shoulder RT min 2V Accession Number(s): [id number] cc: Doc Sarmiento MD; Valery Luna MD Reason for Exam: right arm/shoulder pain CLINICAL HISTORY: right arm shoulder pain Right shoulder, 3 views COMPARISON: None provided FINDINGS: No acute fracture. No dislocation. Mild degenerative changes in the right acromioclavicular joint. Unremarkable soft tissues. IMPRESSION: No acute findings. This document has been electronically signed by: Benito Melendrez MD on 05/28/2025 19:19:47 Dictated By: Benito Melendrez MD Signed By: <Electronically signed by Benito Melendrez MD in OV> 05/28/251921 DD/ 18 TD/TT: 05/28/251918 Site Operations Manager: Procedure Note Donotuseinterpreter, Image - 05/29/[address] [address] XRay Report Signed Patient: Lc Velásquez MR#: [id number] : 1965Acct:[id number] Age/Sex: 59 / MADM Date: 05/25/25 Loc: [facility] 444-[address]: Valery Luna MD Ordering Physician: Valery Luna MD Date of Service: 05/28/25 Procedure(s): XR shoulder RT min 2V Accession Number(s): [id number] cc: Doc Sarmiento MD; Valery Luna MD Reason for Exam: right arm/shoulder pain CLINICAL HISTORY: right arm shoulder pain Right shoulder, 3 views COMPARISON: None provided FINDINGS: No acute fracture. No dislocation. Mild degenerative changes in the right acromioclavicular joint. Unremarkable soft tissues. IMPRESSION: No acute findings. This document has been electronically signed by: Benito Melendrez MD on 05/28/2025 19:19:47 Dictated By: Benito Melendrez MD Signed By: <Electronically signed by Benito Melendrez MD in OV> 05/28/251921 DD/ 18 TD/TT: 05/28/251918 Site Operations Manager: [facility] External Provider IMG XR PROCEDURES Final Result * XR Humerus Right (05/28/2025 7:18 PM EDT) Anatomical Region Laterality Modality Upper Extremities, Humerus Right Radio graphic Imaging 05/28/2025 7:18 PM EDT Narrative 05/28/2025 7:20 PM EDT [address] [address] XRay Report Signed Patient: Lc Velásquez MR#: [id number] : 1965 Acct:[id number] Age/Sex: 59 / M ADM Date: 05/25/25 Loc: [facility] 444-[address]: Valery Luna MD Ordering Physician: Valery Luna MD Date of Service: 05/28/25 Procedure(s): XR humerus RT Accession Number(s): [id number] cc: Doc Sarmiento MD; Valery Luna MD Reason for Exam: right arm pain CLINICAL HISTORY: right arm pain Right humerus, 2 views COMPARISON: None provided FINDINGS: No acute fracture. No dislocation. Small bony protuberance along the lateral margin of the distal right humerus, which could be due to osteophyte or osteochondroma. Unremarkable soft tissues. IMPRESSION: No acute findings. This document has been electronically signed by: Benito Melendrez MD on 05/28/2025 19:18:41 Dictated By: Benito Melendrez MD Signed By: <Electronically signed by Benito Melendrez MD in OV> 05/28/251919 DD/ 17 TD/TT: 05/28/251917 Site Operations Manager: Procedure Note Donotisiahinterpreter, Image - 05/29/2025 [place] [address] XRay Report Signed Patient: Lc Velásquez MR#: [id number] : 1965Acct:[id number] Age/Sex: 59 / MADM Date: 05/25/25 Loc: [facility] 444-[address]: Valery Luna MD Ordering Physician: Valery Luna MD Date of Service: 05/28/25 Procedure(s): XR humerus RT Accession Number(s): [id number] cc: Doc Sarmiento MD; Valery Luna MD Reason for Exam: right arm pain CLINICAL HISTORY: right arm pain Right humerus, 2 views COMPARISON: None provided FINDINGS: No acute fracture. No dislocation. Small bony protuberance along the lateral margin of the distal right humerus, which could be due to osteophyte or osteochondroma. Unremarkable soft tissues. IMPRESSION: No acute findings. This document has been electronically signed by: Benito Melendrez MD on 05/28/2025 19:18:41 Dictated By: Benito Melendrez MD Signed By: <Electronically signed by Benito Melendrez MD in OV> 05/28/251919 DD/ 17 TD/TT: 05/28/251917 Site Operations Manager: [facility] External Provider IMG XR PROCEDURES Final Result * CDiff Gene PCR (05/25/2025 11:16 AM EDT) CDiff Gene PCR NEGATIVE Negative [facility] Comment:If C. difficile stro ngly suspected despite one negativetest, a second test may be sent vs. empiric treatment forC. difficile infection. 05/25/2025 11:1 6 AM EDT 05/25/2025 11:19 AM EDT us Generic External Data Provider LAB BODY FLUIDS A ND STOOLS ORDERABLES Final Result [facility] [address] [place] [address] [phone] * (ABNORMAL) Gastrointestinal panel (05/25/2025 11:16 AM EDT) Campylobacter Not Detected Not Detect. [facility] Plesiomonas shigelloides Not Detected Not Detect. [facility] Salmonella Not Detected Not Detect. [facility] Vibrio Not Detected Not Detect. [facility] Vibrio cholerae Not Detected Not Detect. [facility] YERSINIA ENTEROCOLITICA Not Detected Not Detect. [facility] Enteroaggregative E. coli (EAEC) Not Detected Not Detect. [facility] Enteropathogenic E. coli (EPEC) Not Detected Not Detect. [facility] Enterotoxigenic E. coli (ETEC) lt/st Not Detected Not Detect. [facility] Shiga-like toxin-producing E. coli (STEC) stx1/stx2 Not Detected Not Detect. [facility] E coli O157 Not applicable Not Detect. [facility] Comment:E. coli containing t he O157 antigen are a subset ofShiga-like toxin- producing E. coli (STEC). Shigella/Enteroinvasive E. coli (EIEC) Not Detected Not Detect. [facility] Cryptosporidium Not Detected Not Detect. [facility] Cyclospora cayetanensis Not Detected Not Detect. [facility] Entamoeba histolytica Not Detected Not Detect. [facility] Giardia lamblia Not Detected Not Detect. [facility] Adenovirus F 40/41 Not Detected Not Detect. [facility] Astrovirus Not Detected Not Detect. [facility] Norovirus GI/GII Detected(A) Not Detect. [facility] Comment:Critical GI PANEL ca lled to and read back by YANDY AND ALPHONSO on 05/25/25 at 1322 by TODD. Rotavirus A Not Detected Not Detect. [facility] Sapovirus Not Detected Not Detect. [facility] Comment: All results must be correlated with clinical findings.Negative results do not exclude the possibility ofgastrointestinal infection and should not be used as thesole basis for diagnosis, treatment, or other managementdecisions. Virus, bacteria, and parasite nucleic acid maypersist in vivo independently of organism viability.Additionally, some organisms may be carriedasymptomatically.Detection of organism targets does not imply that thecorresponding organisms are infectious or are the causativeagents for clinical symptoms. There is a risk of falsenegative values due to the presence of sequence variants inthe gene targets of the assay, amplification inhibitors inspecimens, or inadequate numbers of organisms foramplification.The identification of several diarrheagenic E. colipathotypes has historically relied upon phenotypiccharacteristics. This panel targets genetic determinantscharacteristic of most pathogenic strains, but may notdetect all strains having phenotypic characteristics of apathotype.The performance of this test has not been established formonitoring treatment of infection with any of the panelorganisms.This assay is performed by Multiplexed PCR, utilizing [employer]. 05/25/2025 11:1 6 AM EDT 05/25/2025 11:19 AM EDT us Generic External Data Provider LAB MICROBIOLOGY - GENERAL ORDERABLES Final Result [facility] [address] [place] [address] [phone] * CT Head w/o Contrast (05/25/2025 11:12 AM EDT) Anatomical Region Laterality Modality Head, Neck Computed Tomogra phy 05/25/2025 11:1 2 AM EDT Narrative 05/25/2025 12:03 PM EDT [address] [address] [address] Scan Report Signed Patient: Lc Velásquez MR#: [id number] : 1965 Acct:[id number] Age/Sex: 59 / M ADM Date: 05/25/25 Loc: HO.ED Attending Dr: Ordering Physician: Rebeka Workman DO Date of Service: 05/25/25 Procedure(s): CT head/brain wo IV con Accession Number(s): [id number] cc: Rebeka Workman DO; Name,Doc STEVENS Report Number: [id number]: Total DLP = 778.00 mGy-cm Reason for Exam: AMS EXAMINATION: CT HEAD WITHOUT CONTRAST CLINICAL INFORMATION: AMS COMPARISON: None available. TECHNIQUE: Contiguous axial imaging was performed from the skull base to vertex without intravenous administration of contrast. This CT examination was performed using dose optimization techniques as appropriate, variously including the following: *Automated exposure control *Adjustment of mA and/or kV according to patient size (this includes techniques or standardized protocols for targeted exams where dose is matched to indication/reason for exam; i.e. extremities or head) *Use of iterative reconstruction technique DLP: 778 mGy-cm FINDINGS: No acute fracture in the bony calvarium or the skull base. There is residual IV contrast within the intracranial vessels from recent imaging exam. No gross acute intracranial hemorrhage, mass effect, midline shift, hydrocephalus or herniation. Avila-white matter differentiation is normal. Posterior cranial fossa contents demonstrated no gross hemorrhage or mass effect. Normal position of the cerebellar tonsils. Sellar/suprasellar region is normal. Prominence of the extra-axial CSF spaces cerebral sulci and ventricles. Small encephalomalacia, right frontotemporal likely sequela of prior vascular insult. Calcified plaques in the cavernous supracavernous segments both ICAs. No air-fluid levels in the paranasal sinuses. Tympanic cavities and mastoid cells are aerated. CT/CT head/brain wo IV con IMPRESSION: No gross acute intracranial hemorrhage. 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 Global cerebral atrophy. Electronically signed by: Sony Morrison MD 05/25/2025 11:59 AM EDT Dictated By: Sony Cabrera MD Signed By: <Electronically signed by Sony Leung MD in OV> 05/25/25 1159 DD/ 1112 TD/TT: 05/25/25 1151 Site Operations Manager: Procedure Note Donotuseinterpreter, Image - 05/25/[address] [address] [address] Scan Report Signed Patient: Lc Velásquez MR#: [id number] : 1965Acct:[id number] Age/Sex: 59 / MADM Date: 05/25/25 Loc: HO.ED Attending Dr: Ordering Physician: Rebeka Workman DO Date of Service: 05/25/25 Procedure(s): CT head/brain wo IV con Accession Number(s): [id number] cc: Rebeka Workman DO; Name,Doc STEVENS Report Number: [id number]: Total DLP = 778.00 mGy-cm Reason for Exam: AMS EXAMINATION: CT HEAD WITHOUT CONTRAST CLINICAL INFORMATION: AMS COMPARISON: None available. TECHNIQUE: Contiguous axial imaging was performed from the skull base to vertex without intravenous administration of contrast. This CT examination was performed using dose optimization techniques as appropriate, variously including the following: *Automated exposure control *Adjustment of mA and/or kV according to patient size (this includes techniques or standardized protocols for targeted exams where dose is matched to indication/reason for exam; i.e. extremities or head) *Use of iterative reconstruction technique DLP: 778 mGy-cm FINDINGS: No acute fracture in the bony calvarium or the skull base. There is residual IV contrast within the intracranial vessels from recent imaging exam. No gross acute intracranial hemorrhage, mass effect, midline shift, hydrocephalus or herniation. Avila-white matter differentiation is normal. Posterior cranial fossa contents demonstrated no gross hemorrhage or mass effect. Normal position of the cerebellar tonsils. Sellar/suprasellar region is normal. Prominence of the extra-axial CSF spaces cerebral sulci and ventricles. Small encephalomalacia, right frontotemporal likely sequela of prior vascular insult. Calcified plaques in the cavernous supracavernous segments both ICAs. No air-fluid levels in the paranasal sinuses. Tympanic cavities and mastoid cells are aerated. CT/CT head/brain wo IV con IMPRESSION: No gross acute intracranial hemorrhage. 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 Global cerebral atrophy. Electronically signed by: Sony Morrison MD 05/25/2025 11:59 AM EDT Dictated By: Sony Cabrera MD Signed By: <Electronically signed by Sony Leung MDin OV> 05/25/25 1159 DD/ 1112 TD/TT: 05/25/25 1151 Site Operations Manager: [facility] External Provider IMG CT PROCEDURES Final Result * Respiratory Viral Panel PCR (05/25/2025 10:24 AM EDT) Adenovirus PCR Not Detected Not Detect. [facility] Bordetella pertussis PCR Not Detected Not Detect. [facility] Comment:Interpret results wi th caution. If B. pertussis isspecifically suspected, additional testing using analternate method is recommended. Bordetella parapertussis PCR Not Detected Not Detect. [facility] Chlamydia pneumoniae PCR Not Detected Not Detect. [facility] Coronavirus 229E PCR Not Detected Not Detect. [facility] Coronavirus HKU1 PCR Not Detected Not Detect. [facility] Coronavirus NL63 PCR Not Detected Not Detect. [facility] Coronavirus OC43 PCR Not Detected Not Detect. [facility] SARS-CoV-2 PCR Not Detected Not Detect. [facility] Comment:SARS-CoV-2 not detec angela by real-time RT-PCR.Note: If clinical suspicion for Sars-CoV-2 is high, continueto maintain precautions and consider repeat testing.Test results should be interpreted in the context ofclinical findings and other laboratory data.Rare polymorphisms exist that could lead to false-negativeor false-positive results. If results do not match theclinical findings, additional testing should be considered.Results reported to [facility].This test has been authorized by the FDA under the EmergencyUse Authorization (EUA) for use by authorized laboratories. Influenza A PCR Not Detected Not Detect. [facility] Influenza A Subtype H1 Not Detected Not Detect. [facility] Influenza A H1-2009 PCR Not Detected Not Detect. [facility] Influenza A Subtype H3 Not Detected Not Detect. [facility] Influenza B PCR Not Detected Not Detect. [facility] Human metapneumovirus PCR Not Detected Not Detect. [facility] Rhino/Enterovirus PCR Not Detected Not Detect. [facility] Mycoplasma pneumoniae PCR Not Detected Not Detect. [facility] Parainfluenza 1 PCR Not Detected Not Detect. [facility] Parainfluenza 2 PCR Not Detected Not Detect. [facility] Parainfluenza 3 PCR Not Detected Not Detect. [facility] Parainfluenza 4 PCR Not Detected Not Detect. [facility] RSV PCR Not Detected Not Detect. [facility] Resp Panel NA Note See Note [facility] Comment:All results must be correlated with clinical findings.Negative results should not be used as the sole basis fordiagnosis, treatment, or other management decisions.A negative result does not exclude the possibility of viralor bacterial infection. Negative results may occur from thepresence of sequence variants in the region targeted by theassay, the presence of inhibitors, an infection caused by anorganism not detected by the panel, or lower respiratorytract infections that are not detected by a nasopharyngealswab specimen. Test results may also be affected byconcurrent antiviral/antibacterial therapy or levels oforganism in the specimen that are below the limit ofdetection for this test.This assay is performed by Multiplexed PCR, utilizing [employer]. 05/25/2025 10:2 4 AM EDT 05/25/2025 10:30 AM EDT us Generic External Data Provider LAB BLOOD ORDERAB LES Final Result [facility] [address] [place] [address] [phone] * CT Abdomen Pelvis w/ Contrast (05/25/2025 9:25 AM EDT) Anatomical Region Laterality Modality Body, Pelvis, Abdomen Computed T omography 05/25/2025 9:25 AM EDT Narrative 05/25/2025 10:07 AM EDT [address] [address] [address] Scan Report Signed Patient: Lc Velásquez MR#: [id number] : 1965 Acct:[id number] Age/Sex: 59 / M ADM Date: 05/25/25 Loc: HO.ED Attending Dr: Ordering Physician: Rebeka Workman DO Date of Service: 05/25/25 Procedure(s): CT abdomen pelvis w IV con Accession Number(s): [id number] cc: Rebeka Workman DO; Name,Doc STEVENS Report Number: [id number]: Total DLP = 836.00 mGy-cm Reason for Exam: fever, abdominal pain, altered, WBC count 16 EXAMINATION: CT ABDOMEN PELVIS WITH IV CONTRAST HISTORY: fever, abdominal pain, altered, WBC count 16 COMPARISON: There are no prior studies for available comparison. TECHNIQUE: CT scan of the abdomen and pelvis was performed following administration of 85 mL Omnipaque 350 using standard departmental protocol. Coronal and sagittal reformatted images were generated and reviewed. Oral contrast material was not administered at the request of the referring physician. This CT exam was performed with one or more of the following dose reduction techniques: automated exposure control, adjustment of the mA and/or kV according to patient size, use of iterative reconstruction technique. DLP: 836 mGy-cm FINDINGS: LOWER CHEST: There is minimal subsegmental atelectasis at both lung bases. There is no pleural effusion. CARDIOVASCULATURE: The heart is normal in size. There is no pericardial effusion. LIVER: The liver is normal in size and contour. No liver mass is identified. The hepatic and portal veins are patent. GALLBLADDER / BILE DUCTS: The gallbladder is unremarkable. There is no intra or extrahepatic biliary ductal dilatation. SPLEEN: The spleen is normal in size. No focal splenic lesion is identified. PANCREAS: The pancreas is unremarkable in appearance. ADRENAL GLANDS: Within normal limits. KIDNEYS/RETROPERITONEUM: No renal calculi are identified. There is no hydronephrosis. There are multiple bilateral renal parapelvic cysts. LYMPH NODES: No abdominal or pelvic lymphadenopathy. VASCULATURE: The abdominal aorta is normal in caliber. MESENTERY/PERITONEUM: No free fluid. No masses. There is no free intraperitoneal gas. STOMACH: The stomach is unremarkable. SMALL BOWEL: The small bowel is normal in caliber. COLON: There is diverticulosis of the sigmoid colon, without evidence of diverticulitis. APPENDIX: Normal. URINARY BLADDER/PELVIC ORGANS: The urinary bladder is collapsed, limiting evaluation. The prostate is mildly enlarged. BONES / SOFT TISSUES: There is a chronic appearing severe compression fracture of L3. CT/CT abdomen pelvis w IV con IMPRESSION: Sigmoid diverticulosis without evidence of diverticulitis. No acute inflammatory process is identified. Electronically signed by: Jose Gale MD 05/25/2025 10:04 AM EDT Dictated By: Jose Gale MD Signed By: <Electronically signed by Jose Gale MD in OV> 05/25/25 1004 DD/ 4 TD/TT: 05/25/25953 Site Operations Manager: Procedure Note Donotuseinterpreter, Image - 05/25/[address] [place] [address] [address] Scan Report Signed Patient: Lc Velásquez MR#: [id number] : 1965Acct:[id number] Age/Sex: 59 / MADM Date: 05/25/25 Loc: HO.ED Attending Dr: Ordering Physician: Rebeka Workman DO Date of Service: 05/25/25 Procedure(s): CT abdomen pelvis w IV con Accession Number(s): [id number] cc: Rebeka Workman DO; Name,Doc STEVENS Report Number: [id number]: Total DLP = 836.00 mGy-cm Reason for Exam: fever, abdominal pain, altered, WBC count 16 EXAMINATION: CT ABDOMEN PELVIS WITH IV CONTRAST HISTORY: fever, abdominal pain, altered, WBC count 16 COMPARISON: There are no prior studies for available comparison. TECHNIQUE: CT scan of the abdomen and pelvis was performed following administration of 85 mL Omnipaque 350 using standard departmental protocol. Coronal and sagittal reformatted images were generated and reviewed. Oral contrast material was not administered at the request of the referring physician. This CT exam was performed with one or more of the following dose reduction techniques: automated exposure control, adjustment of the mA and/or kV according to patient size, use of iterative reconstruction technique. DLP: 836 mGy-cm FINDINGS: LOWER CHEST: There is minimal subsegmental atelectasis at both lung bases. There is no pleural effusion. CARDIOVASCULATURE: The heart is normal in size. There is no pericardial effusion. LIVER: The liver is normal in size and contour. No liver mass is identified. The hepatic and portal veins are patent. GALLBLADDER / BILE DUCTS: The gallbladder is unremarkable. There is no intra or extrahepatic biliary ductal dilatation. SPLEEN: The spleen is normal in size. No focal splenic lesion is identified. PANCREAS: The pancreas is unremarkable in appearance. ADRENAL GLANDS: Within normal limits. KIDNEYS/RETROPERITONEUM: No renal calculi are identified. There is no hydronephrosis. There are multiple bilateral renal parapelvic cysts. LYMPH NODES: No abdominal or pelvic lymphadenopathy. VASCULATURE: The abdominal aorta is normal in caliber. MESENTERY/PERITONEUM: No free fluid. No masses. There is no free intraperitoneal gas. STOMACH: The stomach is unremarkable. SMALL BOWEL: The small bowel is normal in caliber. COLON: There is diverticulosis of the sigmoid colon, without evidence of diverticulitis. APPENDIX: Normal. URINARY BLADDER/PELVIC ORGANS: The urinary bladder is collapsed, limiting evaluation. The prostate is mildly enlarged. BONES / SOFT TISSUES: There is a chronic appearing severe compression fracture of L3. CT/CT abdomen pelvis w IV con IMPRESSION: Sigmoid diverticulosis without evidence of diverticulitis. No acute inflammatory process is identified. Electronically signed by: Jose Gale MD 05/25/2025 10:04 AM EDT Dictated By: Jose Gale MD Signed By: <Electronically signed by Jose Gale MD in OV> 05/25/25 1004 DD/ 4 TD/TT: 05/25/25953 Site Operations Manager: [facility] External Provider IMG CT PROCEDURES Final Result * (ABNORMAL) Urinalysis, Complete, with Reflex to Culture (05/25/2025 8:49 AM EDT) Color Urine Yellow [facility] Appearance Urine Clear [facility] PH 5.5 5.0 - 9.0 [facility] Glucose Urine UA Negative Negative mg/dL [facility] Urine Blood Trace(A) Negative [facility] Specific [place] - Urine >=1.030(H) 1.005 - 1.025 [facility] Urine Protein Negative Neg-Trace mg/dL [facility] Urine Ketones Trace Negative mg/dL [facility] Nitrite Urine Negative Negative [facility] Leukocyte Esterase Urine Negative Negative [facility] RBC Urine 0-2 0 - 2 /HPF [facility] Urine WBC 0-5 0 - 5 /HPF [facility] Urine Squamous Epithelial Cell 3-5 0 - 2 /HPF [facility] Urine Bacteria None Seen None Seen [facility] Hyaline Casts, Urine 0-2 0 - 2 /LPF [facility] 05/25/2025 8:49 AM EDT 05/25/2025 8:53 AM EDT Narrative [facility] - 05/25/2025 8:59 AM EDT [id number], Clean Catch Generic External Data Provider LAB URINE ORDERAB LES Final Result [facility] [address] [place] [phone] * XR Chest 1 View (05/25/2025 8:01 AM EDT) Anatomical Region Laterality Modality Chest Radiographic Halie ging 05/25/2025 8:01 AM EDT Narrative 05/25/2025 8:31 AM EDT [address] [address] XRay Report Signed Patient: Lc Velásquez MR#: [id number] : 1965 Acct:[id number] Age/Sex: 59 / M ADM Date: 05/25/25 Loc: HO.ED Attending Dr: Ordering Physician: Rebeka Workman DO Date of Service: 05/25/25 Procedure(s): XR chest 1V Accession Number(s): [id number] cc: Rebeka Workman DO; Name,Doc STEVENS Reason for Exam: fever EXAMINATION: XR CHEST 1 VIEW HISTORY: fever COMPARISON: There are no prior studies available for comparison. FINDINGS: A single AP portable view of the chest performed at 8:01 AM is submitted. The lungs are expanded and clear. There is no pleural effusion, pneumothorax, or pulmonary vascular congestion. The heart is normal in size. The bones are intact. XR/XR chest 1V IMPRESSION: Clear lungs. Electronically signed by: Jose Gale MD 05/25/2025 08:28 AM EDT Dictated By: Jose Gale MD Signed By: <Electronically signed by Jose Gale MD in OV> 05/25/25 0828 DD/ 0801 TD/TT: 05/25/25 0819 Site Operations Manager: Procedure Note Donotuseinterpreter, Image - 05/25/[address] [address] XRay Report Signed Patient: Lc Velásquez MR#: [id number] : 1965Acct:[id number] Age/Sex: 59 / MADM Date: 05/25/25 Loc: HO.ED Attending Dr: Ordering Physician: Rebeka Workman DO Date of Service: 05/25/25 Procedure(s): XR chest 1V Accession Number(s): [id number] cc: Rebeka Workman DO; Name,Doc STEVENS Reason for Exam: fever EXAMINATION: XR CHEST 1 VIEW HISTORY: fever COMPARISON: There are no prior studies available for comparison. FINDINGS: A single AP portable view of the chest performed at 8:01 AM is submitted. The lungs are expanded and clear. There is no pleural effusion, pneumothorax, or pulmonary vascular congestion. The heart is normal in size. The bones are intact. XR/XR chest 1V IMPRESSION: Clear lungs. Electronically signed by: Jose Gale MD 05/25/2025 08:28 AM EDT RP Dictated By: Jose Gale MD Signed By: <Electronically signed by Jose Gale MD in OV> 05/25/25827 DD/ 0 TD/TT: 05/25/25818 Site Operations Manager: [facility] External Provider IMG XR PROCEDURES Final Result from Last [address] [place] [id number] [facility] STANDARD GENERIC MEDICARE ADVANTAGE on file Advance Directives Documents on File Type Date Recorded Patient Net Lead Developer Expl anation Power of Bun Icer 05/28/2025 Health Car e Proxy
[2025-06-02 13:53] LABS: MANUAL DIFF FLAG NO
[2025-06-02 14:03] LABS: INTERNATIONAL NORM RATIO 1.0 (0.9-1.1); Prothrombin Time 11.8 SEC (10.9-12.4)
[2025-06-02 14:09] LABS: Ammonia 34 umol/L (13-55)
[2025-06-02 14:11] LABS: Alanine Aminotransferase 18 U/L (0-40); Albumin Level 4.3 g/dL (3.5-5.0); Alkaline Phosphatase 74 U/L (39-117); Anion Gap 17 (12-20); Aspartate Amino Transferase 33 U/L (5-37); Blood Urea Nitrogen 18 mg/dL (9-16); Calcium 9.2 mg/dL (8.4-10.2); Carbon Dioxide 21 mmol/L (22-29); Chloride 103 mmol/L (96-108); Creatinine Clr Calc Pharmacy 74.6; Estimated Glomerular Filt Rate > 60; Lipase 42 U/L (8-78); Potassium 4.0 mmol/L (3.3-5.1); Sodium 137 mmol/L (135-145); Total Protein 7.9 g/dL (6.5-8.0)
[2025-06-02 14:13] LABS: Hematocrit 45.3 % (42.0-52.0); Hemoglobin 15.5 g/dl (14.0-18.0); Imm Gran Abs Auto 0.07 X10*3/uL (0.00-0.03); Imm Gran Pct Auto 0.7 % (0.0-0.4); Lymphocytes Absolute Auto 1.2 X10*3/uL (1.2-4.9); Mean Corpuscular HGB Conc 34.2 g/dl (31.0-36.0); Mean Corpuscular Hemoglobin 30.8 pg (27.0-33.0); Mean Corpuscular Volume 90.1 fL (80.0-98.0); NRBC Abs Auto 0.020 X10*3/uL (0.0-0.012); NRBC Pct Auto 0.2 /100WBC (0.0-0.2); Platelet Count 184 X10*3/uL (160-400); Red Blood Count 5.03 X10*6/uL (4.60-5.80); White Blood Count 10.7 X10*3/uL (4.8-10.8)
[2025-06-02 14:19] LABS: Troponin-I High Sensitivity < 2.7 ng/L (<3.5-35.0)
[2025-06-02 15:06] LABS: Appearance Urine Clear; Glucose Urine UA Negative (Negative); PH 5.0 (5.0-9.0); Specific Gravity - Urine 1.015 (1.005-1.025); UMIC TRIGGER UACC YES
[2025-06-02 15:13] LABS: Cannabinoid Screen Urine Not Detected (Not Detect)
[2025-06-02 15:51] LABS: Reflex Lactate? Lactic Acid Added
--- NOTE | 2025-06-02 16:54 | PC.NURSE ---
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
[2025-06-02 18:25] VITALS: BP 107/49; PULSE 69; RESP 12; O2SAT 98
[2025-06-02 18:38] LABS: ~Lactic Acid-LAB USE ONLY 1.2 mmol/L (0.5-2.0)
[2025-06-03] VITALS (7 sets, daily range): BP systolic 107–145; BP diastolic 55–70; PULSE 62–102; RESP 13–18; TEMP 36.6–36.8; O2SAT 95–99
--- NOTE | 2025-06-03 00:58 | PC.NURSE ---
Addendum entered by Shreya Orozco RN 06/03/25 01:00: correction sitter has been d/c on the previous shift Original Note: pt is currently sleeping, respirations even and unlabored, vs stable and ns on the monitor sitter in place and pt is awaiting psych evaluation and recommendations
--- NOTE | 2025-06-03 04:20 | PC.NURSE ---
pt continuos on sleeping, in apparent distress at this time
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
--- NOTE | 2025-06-03 10:05 | PC.NURSE ---
This RN attempted to give pt remaining medications missing from pyxis. Pt refused medications- educated by this RN on medications/need for them. Pt continues to decline medications. Provider made aware. Will try again at later time. Pt resting comfortably on stretcher, respirations even and unlabored, no increased wob/sob noted. Appears in no distress. Call hobbs within reach, all needs met at this time.
--- NOTE | 2025-06-03 11:04 | PC.NURSE ---
Pt continues to refuse remaining medications ordered. Provider aware. Plan for pt to be d/c back to [facility].
== END 2025-06-03 11:22 | disposition skilled nursing facility (03) ==
PROVIDERS: Emergency Provider Emergency Medicine; PCP Internal Medicine Geriatric Medicine
DX: F03.90 Unspecified dementia, unspecified severity, without behavioral disturbance, psychotic disturbance, mood disturbance, and anxiety (principal); R41.82 Altered mental status, unspecified; R62.7 Adult failure to thrive; R11.0 Nausea; I49.8 Other specified cardiac arrhythmias; R00.0 Tachycardia, unspecified; Z79.899 Other long term (current) drug therapy; Z68.23 Body mass index [BMI] 23.0-23.9, adult; Z51.81 Encounter for therapeutic drug level monitoring
CPT/HCPCS: 36415; 70450; 71045; 80048; 80076; 80307; 81001; 81003; 82140; 83605; 83690; 84484; 85025; 85610; 87040; 87147; 87205; 93005; 96360; 96361; 96372; 99285; J2359; S9485

== ENCOUNTER → 2025-06-02 12:53 | Outpatient (BNV) | payer MEDICARE, MEDICAID, SELFPAY | PROVIDERS: Emergency Provider Emergency Medicine; PCP Internal Medicine Geriatric Medicine; Visit Provider Radiology Diagnostic Radiology | DX: R41.82 Altered mental status, unspecified (principal) | CPT/HCPCS: 70450; 71045 ==

== ENCOUNTER → 2025-06-02 12:53 | Outpatient (BNV) | payer MEDICARE, MEDICAID, SELFPAY | PROVIDERS: Emergency Provider Emergency Medicine; PCP Internal Medicine Geriatric Medicine; Visit Provider Internal Medicine Cardiovascular Disease | DX: I49.9 Cardiac arrhythmia, unspecified (principal) | CPT/HCPCS: 93010 ==

== ENCOUNTER → 2025-06-02 13:06 | Outpatient (BNV) | payer MEDICARE, MEDICAID, SELFPAY | PROVIDERS: Emergency Provider Emergency Medicine; PCP Internal Medicine Geriatric Medicine; Visit Provider Psychiatry & Neurology Psychiatry | DX: F03.90 Unspecified dementia, unspecified severity, without behavioral disturbance, psychotic disturbance, mood disturbance, and anxiety (principal) | CPT/HCPCS: 99282 ==

== ENCOUNTER 2025-07-17 07:46 | Emergency (ER) | payer MEDICARE, MEDICAID, SELFPAY ==
--- NOTE | ~2025-07-17 | CT_ITS ---
EXAMINATION: CT HEAD WITHOUT IV CONTRAST HISTORY: unwitnessed fall. TECHNIQUE: Unenhanced helical CT of the head was performed per standard departmental protocol. Coronal and sagittal reformats of the head were also evaluated. One or more of the following techniques was used for dose reduction: Automated exposure control, adjustment of the mA and/or kV according to patient size, use of iterative reconstruction technique. DLP: 1263 mGy-cm COMPARISON: Comparison is made with the prior examination dated 06/02/2025. FINDINGS: The examination is degraded by patient motion. BRAIN: There is mild prominence of the ventricular system and cortical sulci, consistent with atrophy. Scattered periventricular and subcortical white matter hypodensities are noted which are nonspecific, but often seen in the setting of small vessel ischemic disease. There is encephalomalacia in the right parietal lobe, consistent with an old infarct. There is no mass effect or midline shift. No intra- or extra-axial fluid collections are identified. SINUSES: The visualized paranasal sinuses are clear. The mastoid air cells and middle ear cavities are well pneumatized. ORBITS: The visualized orbits are unremarkable. BONES/SOFT TISSUES: The extracranial soft tissues are unremarkable. The calvarium is intact. No suspicious lytic or sclerotic lesions. CT/CT head/brain wo IV con IMPRESSION: No acute intracranial abnormality. Electronically signed by: Jose Gale MD 07/17/2025 11:00 AM [facility]
--- NOTE | ~2025-07-17 | XR_ITS ---
EXAMINATION: XR SHOULDER 2 OR MORE VIEWS LEFT HISTORY: pain s/p fall COMPARISON: There are no prior studies available for comparison. FINDINGS: Two views of the shoulder are submitted. Osseous mineralization is normal. There is no fracture or dislocation. The glenohumeral joint is not well visualized. There is moderate osteoarthritis of the joint. The soft tissues are unremarkable. XR/XR shoulder LT min 2V IMPRESSION: No evidence of fracture of the left shoulder. Electronically signed by: Jose Gale MD 07/17/2025 10:37 AM [facility]
--- NOTE | ~2025-07-17 | CT_ITS ---
EXAMINATION: CT CERVICAL SPINE WITHOUT IV CONTRAST HISTORY: unwitnessed fall. TECHNIQUE: Helical CT of the cervical spine was performed per standard departmental protocol. Coronal and sagittal reformatted images were also evaluated. One or more of the following techniques was used for dose reduction: Automated exposure control, adjustment of the mA and/or kV according to patient size, use of iterative reconstruction technique. DLP: 350 mGy-cm COMPARISON: There are no prior studies available for comparison. FINDINGS: CERVICAL SPINE: The vertebral bodies maintain normal height and alignment without evidence of fracture or subluxation. There is moderate degenerative disc disease at the C5-6 and C6-7 levels with disc space narrowing and osteophyte formation. Evaluation for disc pathology is limited by lack of intrathecal contrast material, however. BRAIN: The visualized portion of the brain is unremarkable. SINUSES: The visualized paranasal sinuses, mastoid air cells and middle ear cavities are unremarkable. LUNG APICES: The visualized lung apices are clear. SOFT TISSUES: The visualized paraspinal soft tissues are unremarkable. CT/CT cervical spine wo IV con IMPRESSION: No evidence of fracture or malalignment of the cervical spine. Degenerative changes as described. Electronically signed by: Jose Gale MD 07/17/2025 11:03 AM [facility]
--- NOTE | 2025-07-17 07:51 | ED.FALL ---
HPI - Fall General Chief Complaint: Fall Stated Complaint: UNWIT FALL,+CCOLLAR FROM SNF Time Seen by Provider: 07/17/25 07:47 Source: patient and EMS Mode of arrival: EMS Limitations: language barrier and altered mental status History of Present Illness ED Provider: Yu Badillo PA-C HPI Narrative: 60 yo Georgian speaking male with history of Parkinson's dementia and frequent falls, hx seizures, hx CVA, BPH, HTN who presents to the ER from [facility] for evaluation after he was found on the ground by staff this morning. They reported an unwitnessed fall that occurred approximately 5 minutes prior. He is not on anticoagulation and is unable to reports if he hit his head or not. EMS was called and he was placed in a cervical collar and transported the ER for further evaluation. Patient is a poor historian at baseline and unable to offer any history. On arrival he is repeating I was trying, I was trying, but would not elaborate. He c/o 8/10 head pain. Denies neck pain, chest pain, abdominal pain. MD complaint: fall Onset (ago): unknown Fall witnessed: no Place fall occurred: [facility] Loss of consciousness: none Prolonged down time: unclear Context: history of frequent falls Associated symptoms (after fall): headache Related Data Home Medications ?Medication ?Instructions ?Recorded ?Confirmed atorvastatin 20 mg tablet 20 mg PO DAILY 05/25/25 07/17/25 divalproex 250 mg tablet,delayed 250 mg PO TID 05/25/25 07/17/25 release donepezil 10 mg tablet 10 mg PO DAILY 05/25/25 07/17/25 famotidine 20 mg tablet 20 mg PO DAILY 05/25/25 07/17/25 fluticasone propionate 50 1 spray intranasal DAILY PRN 05/25/25 07/17/25 mcg/actuation nasal Allergy Symptoms spray,suspension furosemide 20 mg tablet 20 mg PO BID 05/25/25 07/17/25 lisinopril 10 mg tablet 10 mg PO DAILY 05/25/25 07/17/25 memantine 10 mg tablet 10 mg PO DAILY 05/25/25 07/17/25 sertraline 100 mg tablet 100 mg PO DAILY 05/25/25 07/17/25 tamsulosin 0.4 mg capsule 0.4 mg PO BEDTIME 05/25/25 07/17/25 verapamil 80 mg tablet 80 mg PO DAILY 05/25/25 07/17/25 baclofen 10 mg tablet 10 mg PO TID 06/03/25 07/17/25 acetaminophen 325 mg rectal 650 mg OR Q4H PRN Fever Or Pain 07/17/25 07/17/25 suppository acetaminophen 325 mg tablet 650 mg PO Q4H PRN Fever Or Pain 07/17/25 07/17/25 ascorbic acid (vitamin C) 250 mg 250 mg PO DAILY 07/17/25 07/17/25 tablet (Vitamin C) bisacodyl 10 mg rectal suppository 10 mg OR DAILY PRN Constipation 07/17/25 07/17/25 carbidopa 25 mg-levodopa 100 mg 1 tab PO BID 07/17/25 07/17/25 tablet magnesium hydroxide 400 mg/5 mL 30 ml PO DAILY PRN Constipation 07/17/25 07/17/25 oral suspension (Milk of Magnesia) risperidone 0.5 mg tablet 0.5 mg PO BID 07/17/25 07/17/25 sodium phosphates 19 gram-7 118 ml OR DAILY PRN Constipation 07/17/25 07/17/25 gram/118 mL enema (Fleet Enema) zinc sulfate 50 mg zinc (220 mg) 50 mg PO DAILY 07/17/25 07/17/25 tablet Allergies Allergy/AdvReac Type Severity Reaction Status Date / Time No Known Allergies Allergy Verified 07/17/25 07:56 Review of Systems Review of Systems: Yes Other (limited w/ dementia, language barrier, not reliable) FOR[facility]LY [facility], [facility] Past Medical History Medical History BPH (benign prostatic hyperplasia) HTN (hypertension) Parkinson disease Stroke Social History Social History Household Members: Children Housing: Unknown / Unable to assess Do you presently have visiting nurse or other home services: No Unable to assess alcohol history related to: Unknown Alcohol intake: never Patient Tobacco Use Status: Never used Tobacco Use of substances other than those prescribed or required for medical reasons: Unknown Advance Directives: Yes Advance Directives on File: Yes Advance Directives Date on File: 07/17/25 service: No Physical Exam Exam: Exam: Appearance: Alert. Oriented X1. No acute distress. Head: normocephalic, atraumatic. nontender on palpation, no signs of trauma Eyes: Pupils equal, round and reactive to light. ENT: Pharynx normal. No tonsillar swelling or exudate. Dry mucus membranes, cracking lips Neck: In cervical collar CVS: Normal heart rate and rhythm. Pulses normal. Respiratory: No respiratory distress. Breath sounds normal. Abdomen: Soft and nontender. +BS x4 Skin: Skin warm and dry. Normal skin color. Normal skin turgor. No rashes. Extremities: pelvis is stable. nontender hips, knees and ankles bilaterally.No lower extremity edema. No joint swelling. Rigid and tremulous, limited ROM of left shoulder due to discomfort, nontender on palpation without any obvious abnormality, nontender left elbow Neuro/psych: Oriented X 1. limited ability to cooperate in exam, unable to assess strength and sensation, spontaneously moving all extremities, +rigidity with ROM Vital Signs: Vital Signs: Last Vital Signs Temp 98.6 F 07/19/25 05:59 Pulse 97 07/19/25 05:59 Resp 18 07/19/25 05:59 BP 100/68 07/19/25 05:59 Pulse Ox 98 07/19/25 05:59 O2 Del Method Room Air 07/19/25 05:59 BMI result Body Mass Index 21.1 Course Reevaluation(s) Reevaluation #1: Discussed negative workup with the daughter at the bedside. She reports that since his norovirus admission here in May, he has been bed bound. She reports prior to this admission he was ambulating. He has significantly declined in the last 6 weeks. He was discharged to [facility] for acute rehab and has been residing there since. She states she does not like [facility] and would like him placed somewhere else. Will place patient physician observation and obtain case management consult for options. At this point patient requires long-term care. Will continue to monitor Time: 11:51 Reevaluation #2: Time: 12:29 Date: 07/19/2025 Provider: Isabela Garcia PA-C Patient in physician observation for case management needs. No acute events reported by nursing overnight. No current complaints. VS stable. Patient is being discharged to [facility] for STR needs. Will continue to monitor as we await transportation for disposition. Time: 12:28 Medications Administered Generic Name Dose Route Start Last Admin Trade Name Freq PRN Reason Stop Dose Admin Ascorbic Acid 250 mg 07/18/25 09:00 07/19/25 09:02 Ascorbic Acid 250 Mg Tablet PO 250 mg DAILY RUBEN Administration Atorvastatin Calcium 20 mg 07/18/25 09:00 07/19/25 09:04 Atorvastatin Calcium 20 Mg Tablet PO 20 mg DAILY RUBEN Administration Baclofen 10 mg 07/17/25 15:00 07/19/25 09:04 Baclofen 10 Mg Tablet PO 10 mg TID RUBEN Administration Carbidopa/Levodopa 1 tab 07/17/25 13:15 07/19/25 09:05 Carbidopa/Levodopa 25/100 Tablet PO 1 tab BID RUBEN Administration Divalproex Sodium 250 mg 07/17/25 15:00 07/19/25 09:04 Divalproex Sodium 250 Mg Tablet.Dr PO 250 mg TID RUBEN Administration Donepezil HCl 10 mg 07/17/25 13:15 07/19/25 09:02 Donepezil Hcl 10 Mg Tablet PO 10 mg DAILY RUBEN Administration Famotidine 20 mg 07/18/25 09:00 07/19/25 09:05 Famotidine 20 Mg Tablet PO 20 mg DAILY RUBEN Administration Furosemide 20 mg 07/17/25 21:00 07/19/25 09:04 Furosemide 20 Mg Tablet PO 20 mg BID RUBEN Administration Protocol Lisinopril 10 mg 07/18/25 09:00 07/19/25 09:02 Lisinopril 10 Mg Tablet PO 10 mg DAILY RUBEN Administration Protocol Memantine 10 mg 07/18/25 09:00 07/19/25 09:02 Memantine Hcl 10 Mg Tablet PO 10 mg DAILY RUBEN Administration Risperidone 0.5 mg 07/17/25 13:15 07/19/25 09:02 Risperidone 0.5 Mg Tablet PO 0.5 mg BID RUBEN Administration Sertraline HCl 100 mg 07/17/25 13:15 07/19/25 09:02 Sertraline Hcl 100 Mg Tablet PO 100 mg DAILY RUBEN Administration Tamsulosin HCl 0.4 mg 07/17/25 21:00 07/18/25 21:02 Tamsulosin Hcl 0.4 Mg Capsule PO 0.4 mg BEDTIME RUBEN Administration Verapamil HCl 80 mg 07/18/25 09:00 07/19/25 09:02 Verapamil Hcl 80 Mg Tablet PO 80 mg DAILY RUBEN Administration Protocol Zinc Sulfate 220 mg 07/18/25 09:00 07/19/25 09:02 Zinc Sulfate 220 Mg Capsule PO 220 mg DAILY RUBEN Administration Discontinued Medications Generic Name Dose Route Start Last Admin Trade Name Nikole PRN Reason Stop Dose Admin Sodium Chloride 1,000 mls @ 999 mls/hr 07/17/25 09:00 07/17/25 10:52 Ns IVCONT 07/17/25 10:00 Infused .Q1H1M RUBEN Infusion Levetiracetam 1,000 mg in 100 mls @ 400 mls/hr 07/17/25 18:37 07/17/25 19:13 Keppra IV 07/17/25 18:51 Infused ONCE ONE Infusion Olanzapine 5 mg 07/17/25 09:50 07/17/25 09:55 Olanzapine 10 Mg Vial IM 07/17/25 09:51 5 mg ONCE ONE Administration Medical Decision Making Medical Decision Making [facility] Narrative: 60 yo male with history of Parkinson's dementia w/ hx frequent falls per SNF presenting for evaluation after he was found on the ground at his facility. EMS unable to get any complaints from him. here he is reporting 8/[address] head and cervical spine ordered along with lab workup to r/o metabolic derangements. 10am - patient restless and slightly agitated. not able to lay still for CT scan. IM zyprexa ordered. 12 pm - pt medically cleared. c-collar removed. no neck pain when asked w/ sales and service change leader. spoke with daughter at bedside. he is at his baseline. PO diet ordered. she would like to d/w case management other placement options. home meds restarted. will continue to monitor. Differential Diagnosis Differential Diagnoses: The differential diagnosis associated with the presentation includes ICH/SAH, concussion, cervical spinal injury, shoulder sprain, rotator cuff injury, metabolic derangement, progressive parkinsons dementia Admission/Observation Consideration of admission/observation: Escalation of care including admission/observation considered Lab Data [facility] Lab Attestation statement: I reviewed the patient's lab results. stable thrombocytopenia, no significant metabolic derangement 07/17/25 08:34 07/17/25 08:34 Labs: Lab Results 07/17/25 07/17/25 Range/Units 08:34 20:11 WBC 6.6 (4.8-10.8) X10*3/uL RBC 4.69 (4.60-5.80) X10*6/uL Hgb 14.6 (14.0-18.0) g/dl Hct 43.4 (42.0-52.0) % MCV 92.5 (80.0-98.0) fL MCH 31.1 (27.0-33.0) pg MCHC 33.6 (31.0-36.0) g/dl RDW 12.6 (11.0-16.0) % Plt Count 152 L (160-400) X10*3/uL MPV 11.8 (9.4-12.4) fL Immature Gran % (Auto) 0.3 (0.0-0.4) % Neut % (Auto) 68.9 (45-73) % Lymph % (Auto) 20.1 (20-40) % [place] % (Auto) 9.6 (2-11) % Eos % (Auto) 0.8 (0-4) % Baso % (Auto) 0.3 (0-2) % Lymph # (Auto) 1.3 (1.2-4.9) X10*3/uL [place] # (Auto) 0.6 (0.1-1.2) X10*3/uL Eos # (Auto) 0.1 (0.0-0.4) X10*3/uL Baso # (Auto) 0.0 (0.0-0.2) X10*3/uL Abs Immat Gran (auto) 0.02 (0.00-0.03) X10*3/uL Absolute Neuts (auto) 4.5 (2.0-8.3) x10*3/uL Absolute Nucleated RBC 0.000 (0.0-0.012) X10*3/uL Nucleated RBC % (auto) 0.0 (0.0-0.2) /100WBC Sodium 141 (135-145) mmol/L Potassium 4.2 (3.3-5.1) mmol/L Chloride 108 (96-108) mmol/L Carbon Dioxide 27 (22-29) mmol/L Anion Gap 10 L (12-20) BUN 12 (9-16) mg/dL Creatinine 0.75 (0.5-1.4) mg/dL Estim Creat Clear Calc 103.4 Estimated GFR > 60 Random Glucose 104 (60-115) mg/dL Calcium 9.8 D (8.4-10.2) mg/dL Magnesium 1.9 (1.6-2.6) mg/dL Total Bilirubin 0.3 (0.0-1.0) mg/dL Direct Bilirubin 0.1 (0.0-0.5) mg/dL AST 25 (5-37) U/L ALT 17 (0-40) U/L Alkaline Phosphatase 71 (39-117) U/L Total Protein 7.0 (6.5-8.0) g/dL Albumin 4.2 (3.5-5.0) g/dL Urine Color Yellow Urine Appearance Clear Urine pH 6.0 (5.0-9.0) Ur Specific [place] 1.025 (1.005-1.025) Urine Protein 30 (1+) H (Neg-Trace) mg/dL Urine Glucose (UA) Negative (Negative) mg/dL Urine Ketones Trace (Negative) mg/dL Urine Blood Negative (Negative) Urine Nitrite Positive H (Negative) Ur Leukocyte Esterase Moderate (2+) H (Negative) Urine RBC 0-2 (0-2) /HPF Urine WBC 21-50 H (0-5) /HPF Ur Squamous Epith Cells 0-2 (0-2) /HPF Urine Bacteria 4+ (None Seen) Hyaline Casts 0-2 (0-2) /LPF Independent Interpretation I performed an independent interpretation of an: EKG, Plain X-Ray and CT Scan Interpretation: ekg w/ sinus rhythm HR 100, no ST segment elevation or depression, normal QTc, normal OR interval xr shoulder without acute fracutre CT head without acute bleed or edema Radiology Impression Discussion of test interpretation with radiology: I have reviewed the radiologist's reading. Independent Historian Clinical information obtained from an independent historian. History obtained from or confirmed by: EMS External Record Review External record reviewed: Inpatient record, Outpatient record, Prior outpatient labs and Prior outpatient radiology Prescription Management I considered prescription management with: Pain Medication Chronic Conditions Patient?s care impacted by: Other (Parkinson's dementia) Social Determinants Patient?s care significantly limited by Social Determinants of Health including: Problems related to primary support group Critical Care Time Critical Care Time Critical Care Time: No Discharge Plan Discharge Clinical Impression: Dementia due to Parkinson's disease Patient Disposition: Xfer SNF Transfer Details: BACK TO [facility] Instructions: Dementia (ED) Additional Instructions: CT scan of the head and cervical spine were unremarkable No injuries identified Lab workup is unremarkable Take all of your medications as prescribed Follow up with your doctor If you develop new or worsening symptoms call 911 or come back to the ER for further evaluation. Prescriptions: No Action baclofen 10 mg tablet 10 mg PO TID acetaminophen 325 mg Suppository 650 mg OR Q4H PRN (Reason: Fever Or Pain) acetaminophen 325 mg Tablet 650 mg PO Q4H PRN (Reason: Fever Or Pain) zinc sulfate 50 mg zinc (220 mg) Tablet 50 mg PO DAILY magnesium hydroxide [Milk of Magnesia] 400 mg/5 mL Suspension 30 ml PO DAILY PRN (Reason: Constipation) Rx Instructions: FOR NO BOWEL MOVEMENTS IN 3 DAYS ascorbic acid (vitamin C) [Vitamin C] 250 mg Tablet 250 mg PO DAILY bisacodyl 10 mg Suppository 10 mg OR DAILY PRN (Reason: Constipation) Rx Instructions: USE IF MILK OF MAGNESIA IS INEFFECTIVE Fleet Enema 19-7 gram/118 mL Enema 118 ml OR DAILY PRN (Reason: Constipation) Rx Instructions: USE IF BISACODYL SUPP IS INEFFECTIVE carbidopa-levodopa 25-100 mg Tablet 1 tab PO BID risperidone 0.5 mg Tablet 0.5 mg PO BID atorvastatin 20 mg Tablet 20 mg PO DAILY divalproex 250 mg Tablet,Delayed Release (Dr/Ec) 250 mg PO TID donepezil 10 mg Tablet 10 mg PO DAILY sertraline 100 mg Tablet 100 mg PO DAILY famotidine 20 mg Tablet 20 mg PO DAILY tamsulosin 0.4 mg Capsule 0.4 mg PO BEDTIME lisinopril 10 mg Tablet 10 mg PO DAILY furosemide 20 mg Tablet 20 mg PO BID verapamil 80 mg Tablet 80 mg PO DAILY fluticasone propionate 50 mcg/actuation [place],Suspension 1 spray INTRANASAL DAILY PRN (Reason: Allergy Symptoms) Rx Instructions: administer into each nostril memantine 10 mg Tablet 10 mg PO DAILY Referrals: [facility] [Outside] Salvador Keenan MD [Physician, Internal Medicine] Name,MD Doc [Primary Care Provider, Internal Medicine] Print Language: Georgian
[2025-07-17 07:53] VITALS: BP 118/70; BP 118/72; PULSE 104; PULSE 94; RESP 18; TEMP 36.7; O2SAT 98; O2SAT 99; BMI 21.1
--- NOTE | 2025-07-17 07:58 | ECG_ITS ---
Test Reason : FALL Blood Pressure : */* mmHG Vent. Rate : 100 BPM Atrial Rate : 100 BPM P-R Int : 146 ms QRS Dur : 82 ms QT Int : 336 ms P-R-T Axes : 74 48 72 degrees QTcB Int : 433 ms Normal sinus rhythm Nonspecific T wave abnormality Abnormal ECG When compared with ECG of 02-Jun-2025 13:37, QRS duration has decreased Referred By: Tori Badillo Electronically Signed By: Andriy Costello
[2025-07-17 08:37] LABS: MANUAL DIFF FLAG NO
[2025-07-17 08:39] LABS: Hematocrit 43.4 % (42.0-52.0); Hemoglobin 14.6 g/dl (14.0-18.0); Imm Gran Abs Auto 0.02 X10*3/uL (0.00-0.03); Imm Gran Pct Auto 0.3 % (0.0-0.4); Lymphocytes Absolute Auto 1.3 X10*3/uL (1.2-4.9); Mean Corpuscular HGB Conc 33.6 g/dl (31.0-36.0); Mean Corpuscular Hemoglobin 31.1 pg (27.0-33.0); Mean Corpuscular Volume 92.5 fL (80.0-98.0); NRBC Abs Auto 0.000 X10*3/uL (0.0-0.012); NRBC Pct Auto 0.0 /100WBC (0.0-0.2); Platelet Count 152 X10*3/uL (160-400); Red Blood Count 4.69 X10*6/uL (4.60-5.80); White Blood Count 6.6 X10*3/uL (4.8-10.8)
[2025-07-17 09:17] LABS: Alanine Aminotransferase 17 U/L (0-40); Albumin Level 4.2 g/dL (3.5-5.0); Alkaline Phosphatase 71 U/L (39-117); Anion Gap 10 (12-20); Aspartate Amino Transferase 25 U/L (5-37); Blood Urea Nitrogen 12 mg/dL (9-16); Calcium 9.8 mg/dL (8.4-10.2); Carbon Dioxide 27 mmol/L (22-29); Chloride 108 mmol/L (96-108); Creatinine Clr Calc Pharmacy 103.4; Estimated Glomerular Filt Rate > 60; Magnesium 1.9 mg/dL (1.6-2.6); Potassium 4.2 mmol/L (3.3-5.1); Sodium 141 mmol/L (135-145); Total Protein 7.0 g/dL (6.5-8.0)
[2025-07-17] MEDS: OLANZapine 10 MG VIAL 5 MG IM (09:55)
--- NOTE | 2025-07-17 10:33 | PHA.MEDREC ---
Pharmacy Consult ? Medication Reconciliation Pharmacy has completed the medication reconciliation, using med list from [facility].
--- OUTSIDE RECORDS SUMMARY | 2025-07-17 10:48 | XMS_ITS | Clinical Summary ---
Author Organization [employer] Address [address] [place] [address] Care Team Providers Care Education Finance Processor Name Role Phone Unavailable Primary Care Provider Unavailabl e Encounters Date Type Department Care Team Description 07/05/2025 Patient Outreach [facility] [address] [place] [address] Name, MD Doc Pre-visit Planning (SDOH appointment cancelled. ) 05/25/2025 Orders Only [facility] External Provider, [facility] from Last 3 Months Social History Tobacco Use Types Packs/Day Years Used Date Smoking Tobacco: Never Assessed Sex and Gender Information Value Date Recorded Sex Assigned at Male 05/02/2025 8:54 AM EDT Legal Sex Male 8:54 AM EDT Gender Identity Male 05/02/2025 8:54 AM EDT Sexual Orientation Straight 05/02/2025 8: 54 AM EDT Plan of Treatment Health Maintenance Due Date Last Done Comments [...] of 2) 2014 COVID-19 Vaccine ( - 2024-2 6 season) 2025 Influenza Vaccine (#1) 2025 RSV [...] Procedure Name Priority Date/Time Associated Diagnosis Comments LACTIC ACID LAB USE ONLY Routine 025 6:[address] HEAD WO CONTRAST Routine 06/02/2025 4 :31 PM EDT XR CHEST 1 VIEW Routine 06/02/2025 2:59 PM EDT DRUG MONITOR, PANEL 1, SCREEN, URINE Routine 06/02/2025 2:52 PM EDT URINALYSIS, COMPLETE, WITH REFLEX TO CULTURE Routine 06/02/2025 2:52 PM EDT BLOOD CULTURE (FIRST) Routine 06/02/2025 2:52 PM EDT BLOOD CULTURE (SECOND) Routine 2:52 PM EDT XR SHOULDER 2+ VIEWS RIGHT Routine 05/28/2025 [...] EDT from Last 3 Months Results * Lactic Acid (06/02/2025 6:15 PM EDT) Lactic Acid 1.2 0.5 - 2.0 mmol/L [facility] 06/02/2025 6:15 PM EDT 06/02/2025 6:20 PM EDT us Generic External Data Provider LAB BLOOD ORDERAB LES Final Result Performing Organization Address City/State/[facility] Co de Phone Number [facility] [address] [place] [address] [phone] * CT Head w/o Contrast (06/02/2025 4:31 PM EDT) Only the most recent of2 resultswithin the time period is included. Anatomical Region Laterality Modality Head, Neck Computed Tomogra phy 06/02/2025 4:31 PM EDT Narrative 06/02/2025 4:33 PM EDT [place] [address] CT Scan Report Signed Patient: Lc Velásquez MR#: [id number] : 1965 Acct:[id number] Age/Sex: 59 / M ADM Date: 06/02/25 Loc: HO.ED Attending Dr: Ordering Physician: Serjio Fish MD Date of Service: 06/02/25 Procedure(s): CT head/brain wo IV con Accession Number(s): [id number] cc: Serjio Fish MD; Name,Doc STEVENS Report Number: [id number]: Total DLP = 1329.00 mGy-cm Reason for Exam: Mental status change CLINICAL HISTORY: Mental status change CT head without contrast Comparison: CT/SR - CT HEAD WITHOUT IV CONTRAST - 05/25/25 11:12 EDT Findings: No intra-axial mass, midline shift, hydrocephalus, or acute hemorrhage. Age appropriate cerebral volume loss. Patchy low-density within the periventricular and subcortical white matter. Small chronic right frontotemporal lobe infarct. There is no sinus or mastoid fluid. The orbits are unremarkable. No skull fracture. IMPRESSION: 1. No acute intracranial findings. This document has been electronically signed by: Marcelino Lewis MD on 06/02/2025 16:31:37 Dictated By: Marcelino Lewis MD Signed By: <Electronically signed by Marcelino Lewis MD in OV> 06/02/25 1632 DD/ 1631 TD/TT: 06/02/25 1631 [place]: Procedure Note Donotuseinterpreter, Image - 06/04/[address] [place] [address] [address] Scan Report Signed Patient: Lc Velásquez MR#: [id number] : 1965Acct:[id number] Age/Sex: 59 / MADM Date: 06/02/25 Loc: HO.ED Attending Dr: Ordering Physician: Serjio Fish MD Date of Service: 06/02/25 Procedure(s): CT head/brain wo IV con Accession Number(s): [id number] cc: Serjio Fish MD; Name,Doc STEVENS Report Number: [id number]: Total DLP = 1329.00 mGy-cm Reason for Exam: Mental status change CLINICAL HISTORY: Mental status change CT head without contrast Comparison: CT/SR - CT HEAD WITHOUT IV CONTRAST - 05/25/25 11:12 EDT Findings: No intra-axial mass, midline shift, hydrocephalus, or acute hemorrhage. Age appropriate cerebral volume loss. Patchy low-density within the periventricular and subcortical white matter. Small chronic right frontotemporal lobe infarct. There is no sinus or mastoid fluid. The orbits are unremarkable. No skull fracture. IMPRESSION: 1. No acute intracranial findings. This document has been electronically signed by: Marcelino Lewis MD on 06/02/2025 16:31:37 Dictated By: Marcelino Lewis MD Signed By: <Electronically signed by Marcelino Lewis MD in OV> 06/02/25 1632 DD/ 1631 TD/TT: 06/02/25 163 [place]: [facility] External Provider IMG CT PROCEDURES Final Result * XR Chest 1 View (06/02/2025 2:59 PM EDT) Only the most recent of2 resultswithin the time period is included. Anatomical Region Laterality Modality Chest Radiographic Halie ging 06/02/2025 2:59 PM EDT Narrative 06/02/2025 3:00 PM EDT [place] [address] XRay Report Signed Patient: Lc Velásquez MR#: [id number] : 1965 Acct:[id number] Age/Sex: 59 / M ADM Date: 06/02/25 Loc: HO.ED Attending Dr: Ordering Physician: Serjio Fish MD Date of Service: 06/02/25 Procedure(s): XR chest 1V Accession Number(s): [id number] cc: Serjio Fish MD; Name,Doc STEVENS Reason for Exam: Mental status change CLINICAL HISTORY: Mental status change 1 view chest x-ray Comparison: None provided Findings: No consolidation or effusion. Normal size heart. No acute fracture. IMPRESSION: No acute findings. This document has been electronically signed by: Marcelino Lewis MD on 06/02/2025 14:59:40 Dictated By: Marcelino Lewis MD Signed By: <Electronically signed by Marcelino Lewis MD in OV> 06/02/25 1500 DD/ 58 TD/TT: 06/02/251458 [place]: Procedure Note Donotuseinterpreter, Image - 06/04/2025 [place] [address] XRay Report Signed Patient: Lc Velásquez MR#: [id number] : 1965Acct:[id number] Age/Sex: 59 / MADM Date: 06/02/25 Loc: HO.ED Attending Dr: Ordering Physician: Serjio Fish MD Date of Service: 06/02/25 Procedure(s): XR chest 1V Accession Number(s): [id number] cc: Serjio Fish MD; Name,Doc STEVENS Reason for Exam: Mental status change CLINICAL HISTORY: Mental status change 1 view chest x-ray Comparison: None provided Findings: No consolidation or effusion. Normal size heart. No acute fracture. IMPRESSION: No acute findings. This document has been electronically signed by: Marcelino Lewis MD on 06/02/2025 14:59:40 Dictated By: Marcelino Lewis MD Signed By: <Electronically signed by Marcelino Lewis MD in OV> 06/02/25 1500 DD/ 58 TD/TT: 06/02/251458 [place]: [facility] External Provider IMG XR PROCEDURES Final Result * Blood Culture (Second) (06/02/2025 2:52 PM EDT) Blood Venous blood specimen / Unknown 06/02/2025 2:52 PM EDT 06/02/2025 2:59 PM EDT Comment:Blood Narrative [facility] - 06/04/2025 7:59 AM EDT Blood Culture (Second) null Blood Culture (Second) null Blood Culture (Second) null Blood Culture (Second) null Blood Culture (Second) null Blood Culture (Second) null Blood Culture (Second) null Blood Culture (Second) null Blood Culture (Second) null Blood Culture (Second) BC Positive/Drawn Blood Culture (Second) 1 set positive/2 sets drawn Blood Culture (Second) GS - on external report Blood Culture (Second) Gram-positive cocci in clusters Blood Culture (Second) MRSA PCR Blood Culture (Second) MRSA: Negative, SA: Negative Coag negative Staphylococcus CBLD STANEG comment Unlikely pathogen; call Micro if full workup indicated. Results of Blood Culture gram stain and PCR called to and read back by DORENE at 1140 on 06/03/25 by ISHA. Specimen Source: Blood us Generic External Data Provider LAB MICROBIOLOGY - GENERAL ORDERABLES Final Result [facility] [address] [place] [address] [phone] * (ABNORMAL) Urinalysis, Complete, with Reflex to Culture (06/02/2025 2:52 PM EDT) Only the most recent of2 resultswithin the time period is included. Color Urine Yellow [facility] Appearance Urine Clear [facility] PH 5.0 5.0 - 9.0 [facility] Glucose Urine UA Negative Negative mg/dL [facility] Urine Blood Moderate (2+)(A) Negative [facility] Specific [place] - Urine 1.015 1.005 - 1.025 [facility] Urine Protein Negative Neg-Trace mg/dL [facility] Urine Ketones Negative Negative mg/dL [facility] Nitrite Urine Negative Negative [facility] Leukocyte Esterase Urine Negative Negative [facility] RBC Urine >20(A) 0 - 2 /HPF [facility] Urine WBC 0-5 0 - 5 /HPF [facility] Urine Squamous Epithelial Cell 0-2 0 - 2 /HPF [facility] Urine Bacteria None Seen None Seen [facility] Hyaline Casts, Urine 3-5 0 - 2 /LPF [facility] 06/02/2025 2:52 PM EDT 06/02/2025 2:58 PM EDT Narrative [facility] - 06/02/2025 3:17 PM EDT Urine, Catheterized us Generic External Data Provider LAB URINE ORDERAB LES Final Result [facility] [address] [place] [address] [phone] * (ABNORMAL) Drug Monitoring, Panel 1, Screen, Urine (06/02/2025 2:52 PM EDT) Opiate Screen Urine Not Detected Not Detect [facility] Comment:Opiate cut-off is 30 0 ng/mL.Positive results are unconfirmed and should not be used fornon-medical purposes. Barbiturates, Urine Not Detected Not Detect [facility] Comment:Barbiturate cut-off is 200 ng/mL.Positive results are unconfirmed and should not be used fornon-medical purposes. Phencyclidine Screen Urine Not Detected Not Detect [facility] Comment:Phencyclidine cut-of f is 25 ng/mL.Positive results are unconfirmed and should not be used fornon-medical purposes. Amphetamine Screen Urine Not Detected Not Detect [facility] Comment:Amphetamine cut-off is 1000 ng/mL.Positive results are unconfirmed and should not be used fornon-medical purposes. Benzodiazepines Screen Urine POSITIVE(A) Not Detect [facility] Comment:Benzodiazepine cut-o ff is 200 ng/mL.Positive results are unconfirmed and should not be used fornon-medical purposes. Cocaine Screen Urine Not Detected Not Detect [facility] Comment:Cocaine cut-off is 3 00 ng/mL.Positive results are unconfirmed and should not be used fornon-medical purposes. Cannabinoid Screen Urine Not Detected Not Detect [facility] Comment:Cannabinoid cut-off is 50 ng/mL.Positive results are unconfirmed and should not be used fornon-medical purposes. Methadone Screen, Urine Not Detected Not Detect ng/mL [facility] Comment:Methadone cut-off is 300 ng/mL.Positive results are unconfirmed and should not be used fornon-medical purposes. FENTANYL URINE Not Detected Not Detect [facility] Comment:Fentanyl cut-off is 1 ng/mL.Positive results are unconfirmed and should not be used fornon-medical purposes. Oxycodone Urine Screen Not Detected Not Detect ng/mL [facility] Comment:Oxycodone cut-off is 100 ng/mL.Positive results are unconfirmed and should not be used fornon-medical purposes. Buprenorphine Screen Not Detected Not Detect ng/mL [facility] Comment:Buprenorphine cut-of f is 5 ng/mL.Positive results are unconfirmed and should not be used fornon-medical purposes. 06/02/2025 2:52 PM EDT 06/02/2025 2:58 PM EDT us Generic External Data Provider LAB URINE ORDERAB LES Final Result Performing Organization Address City/State/[facility] Co de Phone Number [facility] [address] [place] [phone] * XR Shoulder 2+ Views Right (05/28/2025 7:19 PM EDT) Anatomical Region Laterality Modality Upper Extremities, Shoulder Right Radi ographic Imaging 05/28/2025 7:19 PM EDT Narrative 05/28/2025 7:22 PM EDT [address] [address] XRay Report Signed Patient: Lc Velásquez MR#: [id number] : 1965 Acct:[id number] Age/Sex: 59 / M ADM Date: 05/25/25 Loc: [facility]: Valery Luna MD Ordering Physician: Valery Luna MD Date of Service: 05/28/25 Procedure(s): XR shoulder RT min 2V Accession Number(s): [id number] cc: Doc Sarmiento MD; Valery Luna MD [...] in OV> 05/28/251921 DD/ 18 TD/TT: 05/28/251918 [place]: Procedure Note Tiater, Image - 05/29/2025 [place] [address] XRay Report Signed Patient: Lc Velásquez MR#: [id number] : 1965Acct:[id number] Age/Sex: 59 / MADM Date: 05/25/25 Loc: [facility] 444-[address]: Valery Luna MD Ordering Physician: Valery Luna MD Date of Service: 05/28/25 Procedure(s): XR shoulder RT min 2V Accession Number(s): [id number] cc: Dco Sarmiento MD; Valery Luna MD Reason for [...] in OV> 05/28/251921 DD/ 18 TD/TT: 05/28/251918 [place]: [facility] External Provider IMG XR PROCEDURES Final Result * XR Humerus Right (05/28/2025 7:18 PM EDT) Anatomical Region Laterality Modality Upper Extremities, Humerus Right Radio graphic Imaging 05/28/2025 7:18 PM EDT Narrative 05/28/2025 7:20 PM EDT [address] [address] XRay Report Signed Patient: Lc Velásquez MR#: [id number] : 1965 Acct:[id number] Age/Sex: 59 / M ADM Date: 05/25/25 Loc: [facility]: Valery Luna MD Ordering Physician: Valery Luna MD Date of Service: 05/28/25 Procedure(s): XR humerus RT Accession Number(s): [id number] cc: Doc Sarmiento MD; Valery Luna MD [...] in OV> 05/28/251919 DD/ 17 TD/TT: 05/28/251917 [place]: Procedure Note Donotuseinterpreter, Image - 05/29/[address] [address] XRay Report Signed Patient: Lc Velásquez MR#: [id number] : 1965Acct:[id number] Age/Sex: 59 / MADM Date: 05/25/25 Loc: [facility]: Valery Luna MD Ordering Physician: Valery Luna MD Date of Service: 05/28/25 Procedure(s): XR humerus RT Accession Number(s): [id number] cc: Doc Sarmiento MD; Valery Luna MD [...] in OV> 05/28/251919 DD/ 17 TD/TT: 05/28/251917 [place]: [facility] External Provider IMG XR PROCEDURES Final Result * CDiff Gene PCR (05/25/2025 11:16 AM EDT) Pathologist [facility] [place] CDiff Gene PCR NEGATIVE Negative [facility] Comment:If C. difficile stro ngly suspected despite one negativetest, a second test may be sent vs. empiric treatment forC. difficile infection. 05/25/2025 11:1 6 AM EDT 05/25/2025 11:19 AM EDT Generic External Data Provider LAB BODY FLUIDS A ND STOOLS ORDERABLES Final Result [facility] [address] [place] [phone] * (ABNORMAL) Gastrointestinal panel (05/25/2025 11:16 AM EDT) Pathologist [facility] [place] Campylobacter Not Detected Not Detect. [facility] Plesiomonas shigelloides Not Detected Not Detect. [facility] Salmonella Not Detected Not Detect. [facility] Vibrio Not Detected Not Detect. [facility] Vibrio cholerae Not Detected Not Detect. [facility] YERSINIA ENTEROCOLITICA Not Detected Not Detect. [facility] Enteroaggregative E. coli (EAEC) Not Detected Not Detect. [facility] Enteropathogenic E. coli (EPEC) Not Detected Not Detect. [facility] Enterotoxigenic E. coli (ETEC) lt/st Not Detected Not Detect. [facility] Shiga-like toxin-producing E. coli (STEC) stx1/stx2 Not Detected Not Detect. [facility] E coli O157 Not applicable Not Detect. [facility] Comment:E. coli containing t he O157 antigen are a subset ofShiga-like toxin- producing E. coli (STEC). Shigella/Enteroinvasive E. coli (EIEC) Not Detected Not Detect. [facility] Cryptosporidium Not Detected Not Detect. [facility] Cyclospora cayetanensis Not Detected Not Detect. [facility] Entamoeba histolytica Not Detected Not Detect. [facility] Giardia lamblia Not Detected Not Detect. [facility] Adenovirus F 40/41 Not Detected Not Detect. [facility] Astrovirus Not Detected Not Detect. [facility] Norovirus GI/GII Detected(A) Not Detect. [facility] Comment:Critical GI PANEL ca lled to and read back by YANDY AND ICVOICEMAIL on 05/25/25 at 1322 by TODD. Rotavirus A Not Detected Not Detect. [facility] Sapovirus Not Detected Not Detect. [facility] Comment: All results must be correlated [...] assay is performed by Multiplexed PCR, utilizing [employer] Array. 05/25/2025 11:1 6 AM EDT 05/25/2025 11:19 AM EDT us Generic External Data Provider LAB MICROBIOLOGY - GENERAL ORDERABLES Final Result [facility] [address] [place] [phone] * Respiratory Viral Panel PCR (05/25/2025 10:24 AM EDT) Adenovirus PCR Not Detected Not Detect. [facility] Bordetella pertussis PCR Not Detected Not Detect. [facility] Comment:Interpret results wi th caution. If B. pertussis isspecifically suspected, additional testing using analternate method is recommended. Bordetella parapertussis PCR Not Detected Not Detect. [facility] Chlamydia pneumoniae PCR Not Detected Not Detect. [facility] Coronavirus 229E PCR Not Detected Not Detect. [facility] Coronavirus HKU1 PCR Not Detected Not Detect. [facility] Coronavirus NL63 PCR Not Detected Not Detect. [facility] Coronavirus OC43 PCR Not Detected Not Detect. [facility] SARS-CoV-2 PCR Not Detected Not Detect. [facility] Comment:SARS-CoV-2 not detec angela by real-time RT-PCR.Note: If clinical suspicion for Sars-CoV-2 is high, continueto maintain precautions and consider repeat testing.Test results should be interpreted in the context ofclinical findings and other laboratory data.Rare polymorphisms exist that could lead to false-negativeor false-positive results. If results do not match theclinical findings, additional testing should be considered.Results reported to [facility].This test has been authorized by the FDA under the EmergencyUse Authorization (EUA) for use by authorized laboratories. Influenza A PCR Not Detected Not Detect. [facility] Influenza A Subtype H1 Not Detected Not Detect. [facility] Influenza A H1-2009 PCR Not Detected Not Detect. [facility] Influenza A Subtype H3 Not Detected Not Detect. [facility] Influenza B PCR Not Detected Not Detect. [facility] Human metapneumovirus PCR Not Detected Not Detect. [facility] Rhino/Enterovirus PCR Not Detected Not Detect. [facility] Mycoplasma pneumoniae PCR Not Detected Not Detect. [facility] Parainfluenza 1 PCR Not Detected Not Detect. [facility] Parainfluenza 2 PCR Not Detected Not Detect. [facility] Parainfluenza 3 PCR Not Detected Not Detect. [facility] Parainfluenza 4 PCR Not Detected Not Detect. [facility] RSV PCR Not Detected Not Detect. [facility] Resp Panel NA Note See Note H [facility] Comment:All results must be correlated with [...] assay is performed by Multiplexed PCR, utilizing [employer] Array. 05/25/2025 10:2 4 AM EDT 05/25/2025 10:30 AM EDT us Generic External Data Provider LAB BLOOD ORDERAB LES Final Result [facility] [address] [place] [phone] * CT Abdomen Pelvis w/ Contrast (05/25/2025 9:25 AM EDT) Anatomical Region Laterality Modality Body, Pelvis, Abdomen Computed T omography 05/25/2025 9:25 AM EDT Narrative 05/25/2025 10:07 AM EDT [address] [address] [address] Scan Report Signed Patient: Lc Velásquez MR#: [id number] : 1965 Acct:[id number] Age/Sex: 59 / M ADM Date: 05/25/25 Loc: HO.ED Attending Dr: Ordering Physician: Rebeka Workman DO Date of Service: 05/25/25 Procedure(s): CT abdomen pelvis w IV con Accession Number(s): [id number] cc: Rebeka Wokrman DO; Name,Doc STEVENS Report Number: [id number]: Total DLP = 836.00 mGy-cm Reason for [...] OV> 05/25/25 1004 DD/ 4 TD/TT: 05/25/25953 [place]: Procedure Note Donotuseinterpreter, Image - 05/25/[address] [place] [address] [address] Scan Report Signed Patient: Lc Velásquez MR#: [id number] : 1965Acct:[id number] Age/Sex: 59 / MADM Date: 05/25/25 Loc: .ED Attending Dr: Ordering Physician: Rebeka Workman DO Date of Service: 05/25/25 Procedure(s): CT abdomen pelvis w IV con Accession Number(s): [id number] cc: Rebeka Workman DO; Name,Doc STEVENS Report Number: [id number]: Total DLP = 836.00 mGy-cm Reason for [...] Gale MD in OV> 05/25/25 1004 DD/ 0925 TD/TT: 05/25/25 0954 [place]: [facility] External Provider IMG CT PROCEDURES Final Result from Last 3 Months Insurance [employer] Advance Directives Documents on File Type Date Recorded Patient [employer] anation Power of [employer] 05/28/2025 Health Car e Proxy
--- NOTE | 2025-07-17 11:04 | PC.NURSE ---
Ptient will not cooperate with staying on stretcher needs to have a ct scan and xrays. Patient moving and trying to scoot down the stretcher.
[2025-07-17 12:27] VITALS: BP 125/70; PULSE 101; RESP 20; TEMP 36.7; O2SAT 98
--- NOTE | 2025-07-17 13:16 | MHC.CM.ED ---
Addendum entered by Janet Ovalle 07/17/25 13:58: Patient recieved IM med for testing. [facility] will follow. Needs to be PRN med free for 24-48 hours before they will consider. Original Note: Received case management consult from Tori BECKETT. Patient came to the ER due to an unwitnessed fall at [facility]. Patient came to [place] from [place] in May. [place] [facility] [place] to [facility] [place]. Daughter is not happy with the care provided at [facility] and requesting different placement. Met with patient's daughter, Jacquie and hand polisher. Jacquie states SNF placement was intended for STR until Jacquie can obtain an apartment that would accommodate patient and her 2 autistic children. Jacquie aware that could be a long process but is requesting referral to [facility]. Jacquie has been in contact with Beverly at facility. Referral will be sent. Continue to monitor for d/c needs.
[2025-07-17 14:35] VITALS: BP 105/56; PULSE 70; RESP 16; O2SAT 98
--- NOTE | 2025-07-17 15:05 | PC.NURSE ---
Was not able to give patient medications was too lethargic from zyprexa IM that was given for Ct scan and x rays. gave all medications that I pulled to Shira Muniz RN.
--- NOTE | 2025-07-17 15:18 | PC.NURSE ---
assumed care of pt at 1500. report received from Aurea DE PAZ. previous meds not administered per mar due to pt sleeping s/p zyprexa admin. respirations even and unlabored. 1:1 sitter at bedside for safety. plan of care continues.
[2025-07-17 16:01] VITALS: BP 113/82; PULSE 80; RESP 18; TEMP 36.3; O2SAT 98
--- NOTE | 2025-07-17 17:58 | PC.NURSE ---
pt continues to be lethargic s/p IM zyprexa injection. unsure of pt's baseline mentation. however pt sleepy, not really responding appropriately or waking up enough to answer questions despite utilizing insurance and benefits clerk. vital signs updated and stable. 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 this RN checked in with [employer]INICAL DIET[employer]IC TECHNICIAN to see if she wants to cover pt with iv seizure meds since he is still unable to take his prescribed po home seizure medications due to lethargy. per provider pt is ok without them for now and will monitor pt for any seizure activity and treat if needed. charted against po home meds in oct. resp even and unlabored, plan of care continues.
[2025-07-17] MEDS: levETIRAcetam in NaCl (iso-os) 1,000 MG/100 ML PIGGYBACK 400 MG IV (18:58)
[2025-07-17 19:21] VITALS: BP 111/78; PULSE 87; RESP 15; TEMP 36.7; O2SAT 95
--- NOTE | 2025-07-17 19:21 | PC.NURSE ---
this rn assumed care of pt, pt resting in stretcher, no acute distress noted, pt alert but no oriented at this time, vss
--- NOTE | 2025-07-17 19:54 | PC.NURSE ---
pt placed in hospital bed for comfort at this time
[2025-07-17 20:18] LABS: Appearance Urine Clear; Glucose Urine UA Negative (Negative); PH 6.0 (5.0-9.0); Specific Gravity - Urine 1.025 (1.005-1.025); UMIC TRIGGER UACC YES
[2025-07-17 20:39] LABS: UACC Culture Trigger YES
--- NOTE | 2025-07-17 22:06 | PC.NURSE ---
pt remains lethargic at this time, pt awake and alert when name called but falls back asleep, pt unable to take PO medications at this time, Provider aware. vss
[2025-07-18] VITALS (7 sets, daily range): BP systolic 104–126; BP diastolic 51–93; PULSE 60–100; RESP 12–20; TEMP 36.3–37.2; O2SAT 95–100
--- NOTE | 2025-07-18 00:27 | PC.NURSE ---
pt noted to be intermittently bradycardic 45-50bpm though pt does not sustain and goes to nsr 80bpm. MD Alexander aware, no new orders at this time
--- NOTE | 2025-07-18 06:18 | PC.NURSE ---
space scheduler at bedside. pt awake at this time but intermittently back asleep. pt able to state name at this time but remains confused, mouth swab given for hydration and pt stated he was hungry but fell asleep prior to eating a spoonful of pudding. vss.
--- NOTE | 2025-07-18 09:02 | MHC.EDTECH ---
Addendum entered by Cate Tenorio RN 07/18/25 09:57: Pt repositioned onto left side. Resting quietly in bed. Call hobbs within reach, all needs met at this time. Original Note: This tech and ZANDRA Bobo changed the Pts sheets and gown. Tiffany care complete. New purewick in place. Pt reposition off of his back to the left side. Pt sat up in bed with breakfast. Pt was not self feeding. This tech attempted to feed the Pt, but he would not eat at this time. Bed alarm on.
--- NOTE | 2025-07-18 09:08 | MHC.EDTECH ---
RE: Pt belongings Pt arrived to the ED during the previous shift. No belongings list was completed for the Pt previously. No personal belongings found at bedside. RN aware.
--- NOTE | 2025-07-18 10:08 | PC.NURSE ---
Morning med administration delayed d/t medications not in pyxis. Pharmacy notified- will bring medications. Pt resting in bed quietly with eyes closed, respirations even and unlabored, call hobbs within reach.
--- NOTE | 2025-07-18 10:20 | PC.NURSE ---
Attempted to give pt morning medications with rheumatologist at bedside- pt unable to follow commands/refusing to take medications, Pt educated on need for medications- pt still unwilling to take medications. Will reattempt. SOPHY Caballero made aware. Call hobbs within reach, all needs met at this time.
--- NOTE | 2025-07-18 10:26 | PC.NURSE ---
Attempted to give pt morning medications with inoculator at bedside- pt unable to follow commands/refusing to take medications, Pt educated on need for medications- pt still unwilling to take medications. Will reattempt Call hobbs within reach, all needs met at this time.
--- NOTE | 2025-07-18 11:00 | HO.WOUND ---
Over Flow Rounding completed 60yr old male present in [facility] ED / OverFlow area - See ED notes for detailed history.? Inpatient Skin Integrity Maintenance Rounding. Patient oriented to self only - Yoruba speaking operator coating furnace used however patient was not able to communicate with this nurse at this time. Brief chart review completed.? Of note while at bedside he is noted ot be in slight hand contractures and is very stiff and resistant to movement. Recommend SIPP activation for prevention intervention guidance as detailed below. He is noted to be limited in independent movement in the bed but was shifting downward in bed despite boosting multiple times. Recommend Q 2 hr turns while in bed and waffle cushion if able to get up to recliner chair. Bilateral Heels assessed for blanchable redness, remain intact and floated off of bed surface with pillows. Buttock, Sacrum and Coccyx assessed - noted to be intact, reddened however remains blanchable. May use preventative foam dressing application to protect from friction and injury development.? Recommend barrier cream twice daily and PRN after episodes of incontinence.? Male Purewick in place and working, However patient does have anatomy conducive to condom cath use for future. Patient on Hospital bed at this time recommend applying low air loss pump to mattress if available.? Recommend SIPP Activation.
--- NOTE | 2025-07-18 11:25 | PC.NURSE ---
Received pt from Main ED to ED overflow. Pt A&O x 1, botswanan speaking only. Pt denies any c/o's at this time. Vitals obtained, pt oriented to call hobbs, bed alarm in place.
--- NOTE | 2025-07-18 11:50 | PC.NURSE ---
Attempted to feed pt, pt refusing lunch at this time. Will re-attempt later.
--- NOTE | 2025-07-18 16:16 | MHC.EDTECH ---
took care for patient @1600, pt repositioned in bed, bed alarm on for fall risk precautions, purewick in tact, no needs stated at this time
--- NOTE | 2025-07-18 16:44 | PC.NURSE ---
Pt lying in bed, restless, yelling at the television, pt able to be redirected at this time by shutting off the t.v. Provider notified of probable sundowning and need for oral prn.
--- NOTE | 2025-07-18 16:57 | MHC.EDTECH ---
pt refused dinner at this time stating he will eat it later, food tray left at bedside table for reattempt at a later time, RN aware
[2025-07-19 05:59] VITALS: BP 100/68; PULSE 97; RESP 18; TEMP 37; O2SAT 98
--- NOTE | 2025-07-19 11:38 | PC.NURSE ---
Daughter called to speak with CRICKET Gonzales about sending the patient back to [facility] as she doesnt want him to be in the ED while looking for another facility- they were unable to get ahold of her and left a message but did tell this nurse. In turn, this nurse sent tiger text message to CM with their request and the contact number to get ahold of the daughter. Per their request, [facility] was notified by CM- nurse to nurse was given to Shae.
--- NOTE | 2025-07-19 11:51 | MHC.CM.ED ---
Received notification that patient does not want patient to wait in ER. Would like patient to return to [facility]. Return referral made to [facility] in [facility]. Spoke with [facility] Nurse on 3rd floor. (Maritza). Nurse aware patient will return via BLS at 1pm. Spoke with patient's daughter, Jacquie via telephone at [phone]. Jacquie requesting [facility] still follow patient for a bed. T/W explained [facility] will be asked to reach out to Jacquie and Jacquie will have to work with [facility] and [facility] to transfer patient. Jacquie verbalizes understanding. Referral will be sent to [facility] via [facility]. Ultimately Jacquie is hoping to bring patient home with her and her 2 autistic children but will need help with this. Shanice MANNING booked for 1pm. Med nec with chart. Patient, Eveline Dhillon RN and Isabela BECKETT aware. Continue to monitor for d/c needs.
[2025-07-19 13:05] VITALS: BP 108/72; PULSE 88; RESP 18; TEMP 36.8; O2SAT 97
== END 2025-07-19 13:06 | disposition skilled nursing facility (03) ==
PROVIDERS: Physician Assistant; Emergency Provider Emergency Medicine; PCP Internal Medicine Geriatric Medicine
DX: R53.1 Weakness (principal); G20.A1 Parkinson's disease without dyskinesia, without mention of fluctuations; F02.80 Dementia in other diseases classified elsewhere, unspecified severity, without behavioral disturbance, psychotic disturbance, mood disturbance, and anxiety; I10 Essential (primary) hypertension; Z86.73 Personal history of transient ischemic attack (TIA), and cerebral infarction without residual deficits; Z79.899 Other long term (current) drug therapy
CPT/HCPCS: 36415; 70450; 72125; 73030; 80048; 80076; 81001; 83735; 85025; 87086; 87088; 87186; 93005; 96361; 96372; 96374; 99285; J1953; J2359

== ENCOUNTER → 2025-07-17 07:58 | Outpatient (BNV) | payer MEDICARE, MEDICAID, SELFPAY | PROVIDERS: Emergency Provider Emergency Medicine; PCP Internal Medicine Geriatric Medicine; Visit Provider Internal Medicine Cardiovascular Disease | DX: R94.31 Abnormal electrocardiogram [ECG] [EKG] (principal); Z04.3 Encounter for examination and observation following other accident | CPT/HCPCS: 93010 ==

== ENCOUNTER → 2025-07-17 08:21 | Outpatient (BNV) | payer MEDICARE, MEDICAID, SELFPAY | PROVIDERS: Emergency Provider Emergency Medicine; PCP Internal Medicine Geriatric Medicine; Visit Provider Radiology Diagnostic Radiology | DX: M50.30 Other cervical disc degeneration, unspecified cervical region (principal); M25.512 Pain in left shoulder; Z04.3 Encounter for examination and observation following other accident | CPT/HCPCS: 70450; 72125; 73030 ==

== ENCOUNTER → 2025-08-16 21:52 | Outpatient (BNV) | payer MEDICARE, MEDICAID, SELFPAY | PROVIDERS: Admitting Provider Internal Medicine; Emergency Provider Emergency Medicine; PCP Internal Medicine Geriatric Medicine; Visit Provider Internal Medicine Cardiovascular Disease | DX: R00.0 Tachycardia, unspecified (principal) | CPT/HCPCS: 93010 ==

== ENCOUNTER → 2025-08-16 23:15 | Outpatient (BNV) | payer MEDICARE, MEDICAID, SELFPAY | PROVIDERS: Emergency Provider Emergency Medicine; PCP Internal Medicine Geriatric Medicine; Visit Provider Radiology Diagnostic Radiology | DX: A41.9 Sepsis, unspecified organism (principal) | CPT/HCPCS: 71045 ==

== ENCOUNTER → 2025-08-17 00:47 | Outpatient (BNV) | payer MEDICARE, MEDICAID, SELFPAY | PROVIDERS: Emergency Provider Emergency Medicine; PCP Internal Medicine Geriatric Medicine; Visit Provider Radiology Diagnostic Radiology | DX: R41.82 Altered mental status, unspecified (principal); Z43.0 Encounter for attention to tracheostomy | CPT/HCPCS: 70450; 71045 ==

== ENCOUNTER 2025-08-17 05:12 | Outpatient (BNV) | payer MEDICARE, MEDICAID, SELFPAY | END 2025-08-19 12:27 | PROVIDERS: Admitting Provider Internal Medicine; Emergency Provider Emergency Medicine; PCP Internal Medicine Geriatric Medicine; Visit Provider Radiology Diagnostic Radiology | DX: Z45.2 Encounter for adjustment and management of vascular access device (principal) | CPT/HCPCS: 71045 ==

== ENCOUNTER 2025-08-17 05:12 | Outpatient (BNV) | payer MEDICARE, MEDICAID, SELFPAY | END 2025-08-18 03:11 | PROVIDERS: Admitting Provider Internal Medicine; Emergency Provider Emergency Medicine; PCP Internal Medicine Geriatric Medicine; Visit Provider Internal Medicine Cardiovascular Disease | DX: R94.31 Abnormal electrocardiogram [ECG] [EKG] (principal); R79.89 Other specified abnormal findings of blood chemistry | CPT/HCPCS: 93010 ==

== ENCOUNTER 2025-08-17 05:12 | Outpatient (BNV) | payer MEDICARE, MEDICAID, SELFPAY | END 2025-08-20 14:15 | PROVIDERS: Admitting Provider Internal Medicine; Emergency Provider Emergency Medicine; PCP Internal Medicine Geriatric Medicine; Visit Provider Psychiatry & Neurology Neurology | DX: G40.901 Epilepsy, unspecified, not intractable, with status epilepticus (principal) | CPT/HCPCS: 95816 ==

== ENCOUNTER 2025-08-17 05:12 | Outpatient (BNV) | payer MEDICARE, MEDICAID, SELFPAY | END 2025-08-17 07:31 | PROVIDERS: Admitting Provider Internal Medicine; Emergency Provider Emergency Medicine; PCP Internal Medicine Geriatric Medicine; Visit Provider Internal Medicine Cardiovascular Disease | DX: I49.3 Ventricular premature depolarization (principal); I25.2 Old myocardial infarction | CPT/HCPCS: 93010 ==

== ENCOUNTER 2025-08-17 05:12 | Outpatient (BNV) | payer MEDICARE, MEDICAID, SELFPAY | END 2025-08-17 15:30 | PROVIDERS: Admitting Provider Internal Medicine; Emergency Provider Emergency Medicine; PCP Internal Medicine Geriatric Medicine; Visit Provider Psychiatry & Neurology Neurology | DX: G40.911 Epilepsy, unspecified, intractable, with status epilepticus (principal) | CPT/HCPCS: 95816 ==

== ENCOUNTER 2025-08-17 05:12 | Outpatient (BNV) | payer MEDICARE, MEDICAID, SELFPAY | END 2025-08-20 11:16 | PROVIDERS: Admitting Provider Internal Medicine; Emergency Provider Emergency Medicine; PCP Internal Medicine Geriatric Medicine; Visit Provider Radiology Diagnostic Radiology | DX: H21.562 Pupillary abnormality, left eye (principal) | CPT/HCPCS: 70450 ==

== ENCOUNTER → 2025-08-17 05:12 | Outpatient (BNV) | payer MEDICARE, MEDICAID, SELFPAY | PROVIDERS: Admitting Provider Internal Medicine; Emergency Provider Emergency Medicine; PCP Internal Medicine Geriatric Medicine; Visit Provider Nurse Practitioner | DX: G93.40 Encephalopathy, unspecified (principal); G20.A1 Parkinson's disease without dyskinesia, without mention of fluctuations; G40.901 Epilepsy, unspecified, not intractable, with status epilepticus; F03.90 Unspecified dementia, unspecified severity, without behavioral disturbance, psychotic disturbance, mood disturbance, and anxiety | CPT/HCPCS: 99222 ==

== ENCOUNTER → 2025-08-17 05:12 | Outpatient (BNV) | payer MEDICARE, MEDICAID, SELFPAY | PROVIDERS: Admitting Provider Internal Medicine; Emergency Provider Emergency Medicine; PCP Internal Medicine Geriatric Medicine; Visit Provider Internal Medicine | DX: G93.40 Encephalopathy, unspecified (principal) | CPT/HCPCS: 99233; 99499 ==

== ENCOUNTER → 2025-08-17 05:12 | Outpatient (BNV) | payer MEDICARE, MEDICAID, SELFPAY | PROVIDERS: Admitting Provider Internal Medicine; Emergency Provider Emergency Medicine; PCP Internal Medicine Geriatric Medicine; Visit Provider Internal Medicine Cardiovascular Disease | DX: I21.9 Acute myocardial infarction, unspecified (principal) | CPT/HCPCS: 99223; 99233 ==

== ENCOUNTER → 2025-08-17 05:12 | Outpatient (BNV) | payer MEDICARE, MEDICAID, SELFPAY | PROVIDERS: Admitting Provider Internal Medicine; Emergency Provider Emergency Medicine; PCP Internal Medicine Geriatric Medicine; Visit Provider Internal Medicine Critical Care Medicine | DX: I21.9 Acute myocardial infarction, unspecified (principal); E87.0 Hyperosmolality and hypernatremia; G93.40 Encephalopathy, unspecified; G40.901 Epilepsy, unspecified, not intractable, with status epilepticus; J96.01 Acute respiratory failure with hypoxia | CPT/HCPCS: 31500; 36556; 62270; 99291 ==

== ENCOUNTER → 2025-08-17 05:12 | Outpatient (BNV) | payer MEDICARE, MEDICAID, SELFPAY | PROVIDERS: Admitting Provider Internal Medicine; Emergency Provider Emergency Medicine; PCP Internal Medicine Geriatric Medicine; Visit Provider Surgery | DX: R13.10 Dysphagia, unspecified (principal) | CPT/HCPCS: 99222 ==